=== PATIENT | male | born 1945 | race Caucasian/White ===

== ENCOUNTER → 2016-05-16 | Outpatient (CLI) | payer MEDICARE ==
[2016-05-16 16:45] LABS: ALT 40 U/L (21-72); AST 23 U/L (17-59); Alkaline Phosphatase 61 U/L (38-126); Anion Gap 11 mmol/L; Blood Urea Nitrogen 11 mg/dL (9-20); Calcium 9.3 mg/dL (8.4-10.2); Carbon Dioxide 29 mmol/L (22-30); Chloride 103 mmol/L (98-107); Cholesterol 98 mg/dL (<200); Glucose 100 mg/dL (74-99); HDL Cholesterol 32 mg/dL (40-60); Non-African American GFR(MDRD) >60 (>60 ml/min/1.73 sqM); Potassium 4.6 mmol/L (3.5-5.1); Sodium 143 mmol/L (137-145); Total Bilirubin 0.4 mg/dL (0.2-1.3); Total Protein 6.8 g/dL (6.3-8.2); Triglycerides 74 mg/dL (<150)
== END | disposition home or self-care (01) ==
LOC: LABWHC1 15:56
PROVIDERS: ATTEND Internal Medicine Interventional Cardiology
DX: E78.2 Mixed hyperlipidemia (principal)
CPT/HCPCS: 36415; 80053; 80061

== ENCOUNTER → 2017-06-05 | Outpatient (CLI) | payer MEDICARE ==
[2017-06-05 15:11] LABS: ALT 38 U/L (21-72); AST 23 U/L (17-59); Cholesterol 128 mg/dL (<200); HDL Cholesterol 37 mg/dL (40-60); LDL Cholesterol,Calculated 70 mg/dL (0-99); Triglycerides 103 mg/dL (<150)
== END | disposition home or self-care (01) ==
LOC: LABWHC1 14:41
PROVIDERS: ATTEND Internal Medicine Interventional Cardiology
DX: E78.2 Mixed hyperlipidemia (principal)
CPT/HCPCS: 36415; 80061; 84450; 84460

== ENCOUNTER → 2017-11-05 | Outpatient (CLI) | payer MEDICARE ==
[2017-11-05 13:54] LABS: ALT 28 U/L (21-72); AST 20 U/L (17-59); Albumin 4.2 g/dL (3.5-5.0); Alkaline Phosphatase 52 U/L (38-126); Anion Gap 9 mmol/L; Blood Urea Nitrogen 11 mg/dL (9-20); Calcium 9.3 mg/dL (8.4-10.2); Carbon Dioxide 29 mmol/L (22-30); Chloride 98 mmol/L (98-107); Cholesterol 113 mg/dL (<200); Glucose 105 mg/dL (74-99); HDL Cholesterol 37 mg/dL (40-60); LDL Cholesterol,Calculated 62 mg/dL (0-99); Sodium 136 mmol/L (137-145); Total Bilirubin 0.5 mg/dL (0.2-1.3); Total Protein 6.7 g/dL (6.3-8.2); Triglycerides 72 mg/dL (<150)
== END | disposition home or self-care (01) ==
LOC: LABWHC1 12:28
PROVIDERS: ATTEND Internal Medicine Interventional Cardiology
DX: E78.2 Mixed hyperlipidemia (principal)
CPT/HCPCS: 36415; 80053; 80061

== ENCOUNTER 2019-05-14 16:11 | Inpatient (IN) | payer MEDICARE ==
--- NOTE | 2019-05-14 17:50 | US ---
EXAMINATION TYPE: US kidneys/renal and bladder DATE OF EXAM: 05/14/2019 COMPARISON: NONE CLINICAL HISTORY: hematuria, retention. History of enlarged prostate, gross hematuria today, urinary retention EXAM MEASUREMENTS: Right Kidney: 13.0 x 4.7 x 5.1 cm Left Kidney: 12.8 x 5.7 x 4.5 cm Right Kidney: enlarged, no evidence of hydronephrosis Left Kidney: enlarged, no evidence of hydronephrosis Bladder: Evans Catheter visualized, debris and solid component noted within bladder IMPRESSION: Urinary bladder is empty. Kidneys are large without evidence of a mass. No hydronephrosis.
[2019-05-14] MEDS ORDERED: MORPHINE SULFATE 4 MG/ML SYRINGE IVP STA (17:52)
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
[2019-05-14 18:10] LABS: RBC,Urine >182 /hpf (0-5); WBC,Urine 37 /hpf (0-5)
[2019-05-14 18:13] LABS: Appearance,Urine Bloody (Clear); Color,Urine Brown
[2019-05-14 18:19] LABS: ALT 39 U/L (4-49); AST 46 U/L (17-59); African American GFR (CKD) >90 (>60 ml/min/1.73 sqM); Albumin 3.6 g/dL (3.5-5.0); Alkaline Phosphatase 70 U/L (38-126); Anion Gap 9 mmol/L; Blood Urea Nitrogen 11 mg/dL (9-20); Calcium 8.7 mg/dL (8.4-10.2); Carbon Dioxide 24 mmol/L (22-30); Chloride 98 mmol/L (98-107); Glucose 115 mg/dL (74-99); Non-African American GFR(CKD) >90 (>60 ml/min/1.73 sqM); Potassium 5.4 mmol/L (3.5-5.1); Sodium 131 mmol/L (137-145); Total Bilirubin 0.6 mg/dL (0.2-1.3); Total Protein 6.5 g/dL (6.3-8.2)
[2019-05-14 18:24] LABS: Basophils % (A) 0 %; Eosinophils # (A) 0.2 k/uL (0-0.7); Eosinophils % (A) 2 %; HCT 35.4 % (39.0-53.0); Lymphocytes # (A) 1.5 k/uL (1.0-4.8); Lymphocytes % (A) 12 %; MCH 31.3 pg (25.0-35.0); MCHC 33.9 g/dL (31.0-37.0); MCV 92.3 fL (80.0-100.0); Mean Platelet Volume 7.6; Monocytes # (A) 0.7 k/uL (0-1.0); Monocytes % (A) 5 %; Neutrophils # (A) 9.9 k/uL (1.3-7.7); Neutrophils % (A) 80 %; Platelet Count 379 k/uL (150-450); RBC 3.83 m/uL (4.30-5.90); WBC 12.5 k/uL (3.8-10.6)
[2019-05-14 19:15] LABS: Partial Thromboplastin Time 28.4 sec (22.0-30.0); Prothrombin Time 10.3 sec (9.0-12.0)
[2019-05-14] MEDS ORDERED: NALOXONE 0.4 MG/ML 1 ML VIAL IV PRN (19:47)
[2019-05-14] MEDS ORDERED: cefTRIAXone IN SWFI 1,000 MG/10 ML SYRINGE IVP STA (19:58)
[2019-05-14] MEDS: SODIUM CHLORIDE 0.9% 1,000 ML IV SCH (20:16)
[2019-05-14 20:48] LABS: Glucose,Whole Blood 152 mg/dL (75-99)
[2019-05-14] MEDS ORDERED: IPRATROPIUM-ALBUTEROL 3 ML NEB INHALATION PRN (20:54)
[2019-05-14] MEDS: MORPHINE SULFATE 4 MG/ML SYRINGE IV PRN (21:16)
[2019-05-14] MEDS ORDERED: HYDROcodone/APAP 10-325MG 1 EACH TAB PO PRN (22:10)
[2019-05-14] MEDS ORDERED: DIAZEPAM 5 MG TAB PO PRN (22:10)
[2019-05-15] MEDS: IPRATROPIUM-ALBUTEROL 3 ML NEB INHALATION SCH ×5 (01:03→19:20)
[2019-05-15] MEDS: GABAPENTIN 400 MG CAP PO SCH ×5 (01:26→22:34)
[2019-05-15 02:04] LABS: Basophils # (A) 0.1 k/uL (0-0.2); Basophils % (A) 1 %; Eosinophils # (A) 0.2 k/uL (0-0.7); Eosinophils % (A) 2 %; HCT 33.8 % (39.0-53.0); HGB 11.2 gm/dL (13.0-17.5); Lymphocytes # (A) 1.9 k/uL (1.0-4.8); Lymphocytes % (A) 17 %; MCH 31.1 pg (25.0-35.0); MCHC 33.3 g/dL (31.0-37.0); MCV 93.5 fL (80.0-100.0); Mean Platelet Volume 7.1; Monocytes # (A) 0.5 k/uL (0-1.0); Monocytes % (A) 4 %; Neutrophils # (A) 8.4 k/uL (1.3-7.7); Neutrophils % (A) 75 %; Platelet Count 381 k/uL (150-450); RBC 3.62 m/uL (4.30-5.90); RDW 12.8 % (11.5-15.5); WBC 11.3 k/uL (3.8-10.6)
[2019-05-15] MEDS: MORPHINE SULFATE 4 MG/ML SYRINGE IV PRN ×2 (05:45→12:48)
[2019-05-15] MEDS: SYMBICORT 160-4.5 MCG INHALER INHALATION SCH ×2 (07:03→19:21)
[2019-05-15 07:07] LABS: HCT 33.7 % (39.0-53.0); HGB 11.1 gm/dL (13.0-17.5); MCH 30.9 pg (25.0-35.0); MCHC 32.9 g/dL (31.0-37.0); MCV 94.1 fL (80.0-100.0); Mean Platelet Volume 7.1; Platelet Count 386 k/uL (150-450); RBC 3.58 m/uL (4.30-5.90); RDW 12.9 % (11.5-15.5); WBC 11.3 k/uL (3.8-10.6)
[2019-05-15 07:19] LABS: African American GFR (CKD) >90 (>60 ml/min/1.73 sqM); Anion Gap 10 mmol/L; Blood Urea Nitrogen 9 mg/dL (9-20); Calcium 8.3 mg/dL (8.4-10.2); Carbon Dioxide 25 mmol/L (22-30); Chloride 92 mmol/L (98-107); Glucose 109 mg/dL (74-99); Non-African American GFR(CKD) >90 (>60 ml/min/1.73 sqM); Potassium 5.2 mmol/L (3.5-5.1); Sodium 127 mmol/L (137-145)
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
[2019-05-15] MEDS: FINASTERIDE 5 MG TAB PO SCH (07:35)
[2019-05-15] MEDS: MONTELUKAST 10 MG TAB PO SCH (07:35)
[2019-05-15] MEDS: TAMSULOSIN 0.4 MG CAP.ER.24H PO SCH (07:35)
[2019-05-15] MEDS: SODIUM CHLORIDE 0.9% 1,000 ML IV SCH (07:36)
[2019-05-15] MEDS: LISINOPRIL 10 MG TAB PO SCH (07:36)
[2019-05-15] MEDS: ATORVASTATIN 20 MG TAB PO SCH (07:36)
[2019-05-15] MEDS: DONEPEZIL 5 MG TAB PO SCH (09:01)
--- NOTE | 2019-05-15 09:54 | CONS ---
CONSULTATION DATE OF SERVICE: 05/14/2019 REASON FOR CONSULTATION: Advice regarding COPD and multiple medical issues, requested by Dr. Mcghee. HISTORY OF PRESENT ILLNESS: This is a 74-year-old gentleman with a past medical history of multiple medical problems including COPD, CVA, TIA, history of DJD, history of prosthetic left leg, history of peripheral vascular disease, being followed by Dr. Boss in the outpatient setting, apparently was having straight caths previously. His straight cathed him and the patient was admitted with hematuria to [facility] Emergency Room. Patient also has severe urinary retention. The patient had Evans catheter placed the next period of time. Because of the hematuria, the patient admitted for evaluation and treatment. Some clots are also noted in the ER. There is no history of any fever or rigors. There is no history of headache, loss of consciousness or seizures. No history of chest pain, palpitations, hematochezia. Patient is a smoker. PAST MEDICAL: COPD, CVA, TIA, history of DJD, peripheral vascular disease history history of home O2. MEDICATIONS PRIOR TO ADMISSION INCLUDE: 1. Valium 5 mg b.i.d. p.r.n. 2. Lotensin 10 mg p.o. daily. 3. Flomax 0.4 daily. 4. Singulair 10 mg daily. 5. [place] 10 mg q.6 p.r.n. 6. Gabapentin 800 mg p.o. daily. 7. Aricept 5 mg p.o. daily. 8. Symbicort 160/4.5 two puffs b.i.d. 9. Combivent 2 puffs q.i.d. 10.Lipitor 20 mg p.o. daily. 11.Proscar 5 mg. 12.Plavix 75 mg p.o. daily. ALLERGIES: None. FAMILY HISTORY: History of lung cancer in the family. SOCIAL HISTORY: History of continued smoking. No history of alcohol intake. REVIEW OF SYSTEMS: ENT: Diminished hearing, diminished vision. CARDIOVASCULAR SYSTEM: No angina or palpitations. RESPIRATORY: As mentioned earlier. GI: As mentioned earlier. : As mentioned earlier. NERVOUS SYSTEM: No numbness or weakness. ALLERGY/IMMUNOLOGY: No asthma, hay fever. MUSCULOSKELETAL: As mentioned earlier. HEMATOLOGY: No history of anemia. ENDOCRINE: No history of diabetes or hay fever. CONSTITUTIONAL: As mentioned earlier. DERMATOLOGY: Negative. RHEUMATOLOGY: Negative. PSYCHIATRY: As mentioned earlier. PHYSICAL EXAMINATION: Patient is alert and oriented x3. Pulse is 60, blood pressure 130/70, respiration 20, temperature 98.2, pulse ox 93% on room air. HEENT: Conjunctivae normal, oral mucosa moist. NECK: No jugular venous distention. No lymph node enlargement. CARDIOVASCULAR SYSTEM: S1, S2. RESPIRATION: Breath sounds diminished at the bases, no rhonchi, no crackles. ABDOMEN: Soft, nontender. No mass palpable. LEGS: No edema, no swelling. NERVOUS SYSTEM: Higher functions as mentioned earlier. Moves all 4 limbs. No focal motor or sensory deficits. LYMPHATICS: No lymph node enlargement in the neck or axillae. SKIN: No ulcer or bleeding. JOINTS: No active deformity. LABS: WBC 12.2, hemoglobin is 12, sodium 130, potassium 5.4, and UA noted. ASSESSMENT: 1. Hematuria and urinary retention for evaluation. 2. Hyponatremia. 3. Hyperkalemia. 4. Increased WBC. 5. Anemia. 6. Chronic obstructive pulmonary disease. 7. Continued ongoing nicotine dependence. 8. History of CVA, TIA. 9. History of degenerative joint disease. 10.History of peripheral vascular disease and prosthetic left leg. 11.History of chronic hypoxic respiratory failure on home O2. 12.History of left below-knee amputation. 13.FULL CODE. RECOMMENDATION: In this 74-year-old gentleman who presented to the hospital at this time I recommend to continue with the current medications. Resume the home medications and I would recommend repeat labs in the morning because of mild hyperkalemia. Otherwise empiric antibiotics and a single dose was given in the ER. We will continue to monitor. Will follow the patient closely with you. Patient may be asked to follow with primary physician closely after discharge. Thank you Dr. Mcghee for letting us participate in this patient's care. MMODL / IJN: [id number] /
[2019-05-15] MEDS ORDERED: HYDROcodone/APAP 10-325MG 1 EACH TAB PO PRN (13:40)
[2019-05-15 14:32] LABS: HCT 31.8 % (39.0-53.0); HGB 10.5 gm/dL (13.0-17.5); MCH 31.1 pg (25.0-35.0); MCV 94.5 fL (80.0-100.0); Mean Platelet Volume 6.9; Platelet Count 351 k/uL (150-450); RBC 3.37 m/uL (4.30-5.90); RDW 12.9 % (11.5-15.5)
--- NOTE | 2019-05-15 23:59 | PN ---
PROGRESS NOTE DATE OF SERVICE: 05/15/2019 This 74-year-old gentleman who was admitted with hematuria, is being closely monitored. No chest pain. No palpitations. No fever. Dr. Mcghee is planning irrigation. PHYSICAL EXAMINATION: Alert and oriented x3. Pulse is 70. Blood pressure 130/64. Respirations 17. Temperature 98.1, pulse ox 94% on room air. HEENT: Conjunctivae normal. NECK: No JVD. CARDIOVASCULAR: S1, S2 muffled. RESPIRATORY: Breath sounds diminished in the bases. No rhonchi no crackles. ABDOMEN soft, nontender. LEGS are no edema. No swelling. CENTRAL NERVOUS SYSTEM: No focal deficits. Examination of the external genitalia some hematuria. Evans catheter in-situ. LABS: WBC 9, hemoglobin 10.5, sodium 127, potassium 5.2. ASSESSMENT: 1. Gross hematuria and urinary retention for evaluation. 2. Hyponatremia. 3. Anemia, acute blood loss anemia possibly. 4. Hyperkalemia. 5. Increased WBC. 6. Chronic obstructive pulmonary disease. 7. Continued ongoing nicotine dependence. 8. History of cerebrovascular accident, transient ischemic attack. 9. History of degenerative joint disease. 10.Peripheral vascular disease. 11.Prosthetic left leg. 12.History of chronic hypoxic respiratory failure on home O2. 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 14.FULL CODE. RECOMMENDATIONS AND DISCUSSION: Recommend to continue current medications, monitoring and symptomatic treatment. Otherwise, the patient is off Plavix at this time. We will continue to monitor. Otherwise, monitor hemoglobin closely. Further recommendations to follow. MMODL / IJN: [id number] /
[2019-05-16] MEDS: SODIUM CHLORIDE 0.9% 1,000 ML IV SCH ×2 (00:01→12:29)
[2019-05-16] MEDS: MORPHINE SULFATE 4 MG/ML SYRINGE IV PRN (01:26)
[2019-05-16] MEDS: GABAPENTIN 400 MG CAP PO SCH ×4 (06:47→21:15)
[2019-05-16] MEDS: LISINOPRIL 10 MG TAB PO SCH (06:47)
[2019-05-16] MEDS: TAMSULOSIN 0.4 MG CAP.ER.24H PO SCH (06:48)
[2019-05-16] MEDS: ATORVASTATIN 20 MG TAB PO SCH (06:48)
[2019-05-16] MEDS: FINASTERIDE 5 MG TAB PO SCH (06:48)
[2019-05-16] MEDS: MONTELUKAST 10 MG TAB PO SCH (06:48)
[2019-05-16] MEDS: DONEPEZIL 5 MG TAB PO SCH (06:48)
[2019-05-16 06:53] LABS: HCT 30.5 % (39.0-53.0); HGB 10.1 gm/dL (13.0-17.5); MCH 31.4 pg (25.0-35.0); MCHC 33.2 g/dL (31.0-37.0); MCV 94.6 fL (80.0-100.0); Mean Platelet Volume 6.9; Platelet Count 364 k/uL (150-450); RBC 3.23 m/uL (4.30-5.90); WBC 10.5 k/uL (3.8-10.6)
--- NOTE | 2019-05-16 07:26 | P.PN ---
Subjective Progress Note Date: 05/16/19 The patient is in the hospital with urine retention and gross hematuria. He has old clot dissolving and intermittently plugging his catheter requiring irrigation. The plan by Dr. Yin is to do a biopsy of the prostate nodule in the near future and then determine treatment of his urine retention. We'll continue to monitor his hematuria. His hemoglobin was stable. Objective - Vital Signs Vital signs: Vital Signs Temp 97.7 F 05/16/19 06:44 Pulse 87 05/16/19 06:44 Resp 17 05/16/19 06:44 BP 118/76 05/16/19 06:44 Pulse Ox 93 L 05/16/19 06:44 Intake & Output 05/15/19 05/16/19 05/16/19 18:59 06:59 18:59 Intake Total 375 1905 Output Total 2700 2400 Balance -0765 495 Intake: Intake, IV Titration 825 Amount Sodium Chloride 0.9% 1, 825 000 ml @ 75 mls/hr IV . [id number] [facility] Rx#:[id number] Oral 375 1080 Output: Urine 2700 2400 Uretheral (Evans) 2400 Other: Voiding Method Indwelling Catheter Indwelling Catheter - Labs CBC & Chem 7: 05/16/19 06:35 05/15/19 06:33 Labs: Abnormal Lab Results - Last 24 Hours (Table) 05/15/19 05/16/19 Range/Units 14:03 06:35 RBC 3.37 L 3.23 L (4.30-5.90) m/uL Hgb 10.5 L 10.1 L (13.0-17.5) gm/dL Hct 31.8 L 30.5 L (39.0-53.0) % Microbiology - Last 24 Hours (Table) 05/14/19 17:20 Urine Culture - Preliminary Urine,Voided
[2019-05-16] MEDS: SYMBICORT 160-4.5 MCG INHALER INHALATION SCH ×2 (07:52→20:25)
[2019-05-16] MEDS: IPRATROPIUM-ALBUTEROL 3 ML NEB INHALATION SCH ×4 (07:52→20:25)
[2019-05-16 08:23] LABS: African American GFR (CKD) >90 (>60 ml/min/1.73 sqM); Anion Gap 7 mmol/L; Blood Urea Nitrogen 9 mg/dL (9-20); Calcium 8.6 mg/dL (8.4-10.2); Carbon Dioxide 27 mmol/L (22-30); Chloride 97 mmol/L (98-107); Glucose 106 mg/dL (74-99); Non-African American GFR(CKD) >90 (>60 ml/min/1.73 sqM); Potassium 5.2 mmol/L (3.5-5.1); Sodium 131 mmol/L (137-145)
--- NOTE | 2019-05-16 20:25 | PN ---
PROGRESS NOTE DATE OF SERVICE: 05/16/2019 This 74-year-old gentleman was admitted with gross hematuria, is being closely monitored. Urology is following the patient closely. The patient has shortness of breath with bronchodilators. The COPD is rather stable at this time. No chest pain. No palpitations. No fever. EXAM: Alert and oriented x3. The pulse is 76, blood pressure 120/50, respirations 17, temperature 98.1, pulse ox 94% on room air. HEENT: Conjunctivae normal. Oral mucosa moist. NECK: No jugular venous distention. No lymph node enlargement. CARDIOVASCULAR: S1, S2. RESPIRATORY: Diminished breath sounds at the bases. Bilateral scattered rhonchi and crackles. ABDOMEN: Soft, nontender. LEGS: No edema, no swelling. NERVOUS SYSTEM: No focal deficits. LAB STUDIES: WBC 10, hemoglobin 10.1 sodium 139, potassium 5.2. ASSESSMENT: 1. Gross hematuria with urinary retention for evaluation. 2. Hyponatremia. 3. Anemia, acute blood loss anemia possibly. 4. Hyperkalemia. 5. Increased WBC. 6. Chronic obstructive pulmonary disease, on bronchodilators. 7. Continued ongoing nicotine dependence. 8. History of cerebrovascular accident, transient ischemic attack. 9. History of degenerative joint disease. 10.Peripheral vascular disease. 11.History of prosthetic left leg. 12.History of chronic hypoxic respiratory failure on home O2. 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 14.FULL CODE. RECOMMENDATIONS AND DISCUSSION: Recommend to continue current medications, continue symptomatic treatment, continue with bronchodilators. We will follow closely with Urology. Further recommendations to follow. MMODL / IJN: [id number] /
[2019-05-17 01:28] VITALS: RESP 16
[2019-05-17] MEDS: SODIUM CHLORIDE 0.9% 1,000 ML IV SCH (02:07)
[2019-05-17] MEDS: SYMBICORT 160-4.5 MCG INHALER INHALATION SCH (08:14)
[2019-05-17] MEDS: IPRATROPIUM-ALBUTEROL 3 ML NEB INHALATION SCH ×3 (08:14→16:19)
[2019-05-17 09:01] VITALS: BP 174/80; TEMP 98.4
[2019-05-17] MEDS: GABAPENTIN 400 MG CAP PO SCH (10:03)
[2019-05-17] MEDS: DONEPEZIL 5 MG TAB PO SCH (10:04)
[2019-05-17] MEDS: MONTELUKAST 10 MG TAB PO SCH (10:04)
[2019-05-17] MEDS: LISINOPRIL 10 MG TAB PO SCH (10:04)
[2019-05-17] MEDS: ATORVASTATIN 20 MG TAB PO SCH (10:04)
[2019-05-17] MEDS: TAMSULOSIN 0.4 MG CAP.ER.24H PO SCH (10:04)
[2019-05-17] MEDS: FINASTERIDE 5 MG TAB PO SCH (10:13)
--- NOTE | 2019-05-17 11:47 | P.DS ---
Providers Date of admission: 05/15/19 10:24 Attending physician: Mykel Mcghee Consults: 05/14/19 21:30 Consult Physician Routine Consulting Provider: Korey Crockett Consult Reason/Comments: General Medical Care Do you want consulting provider notified?: Already Contacted Primary care physician: Bob Boss [facility] Course: The patient has urine retention. He has a history of a large prostate. He was on intermittent catheterization because he was not tolerating the indwelling catheter. He developed gross hematuria and clot urinary retention. The gross hematuria settled down over the last couple days. Urine is clear this morning to very minimal pink. He'll be discharged home with indwelling catheter. He'll follow-up with next week or further assessment for his urine retention and prostate nodule. His condition is good. His posthospitalization instructions have been discussed. The patient understands. Patient Condition at Discharge: Good Plan - Discharge Summary Discharge Rx Participant: No New Discharge Prescriptions: No Action Montelukast [Singulair] 10 mg PO DAILY Ipratropium/Albuterol Sulfate [Combivent Respimat Inhaler] 2 puff INHALATION RT-QID Tamsulosin [Flomax] 0.4 mg PO DAILY Diazepam [Valium] 5 mg PO BID PRN PRN Reason: PAIN/ANXIETY Hydrocodone/Acetaminophen [[place] 10-325] 1 tab PO Q46H PRN PRN Reason: Pain Gabapentin 800 mg PO QID Budesonide-Formot 160-4.5 Mcg [Symbicort 160-4.5 Mcg Inhaler] 2 puff INHALATION RT-BID Clopidogrel [Plavix] 75 mg PO DAILY #30 tab Benazepril [Lotensin] 10 mg PO DAILY Donepezil [Aricept] 5 mg PO DAILY Atorvastatin [Lipitor] 20 mg PO DAILY Finasteride [Proscar] 5 mg PO DAILY Discharge Medication List Budesonide-Formot 160-4.5 Mcg [Symbicort 160-4.5 Mcg Inhaler] 2 puff INHALATION RT-BID 04/02/15 [History] Diazepam [Valium] 5 mg PO BID PRN 04/02/15 [History] Gabapentin 800 mg PO QID 04/02/15 [History] Hydrocodone/Acetaminophen [[place] 10-325] 1 tab PO Q46H PRN 04/02/15 [History] Ipratropium/Albuterol Sulfate [Combivent Respimat Inhaler] 2 puff INHALATION RT- QID 04/02/15 [History] Montelukast [Singulair] 10 mg PO DAILY 04/02/15 [History] Tamsulosin [Flomax] 0.4 mg PO DAILY 04/02/15 [History] Clopidogrel [Plavix] 75 mg PO DAILY #30 tab 04/16/15 [Rx] Atorvastatin [Lipitor] 20 mg PO DAILY 05/14/19 [History] Benazepril [Lotensin] 10 mg PO DAILY 05/14/19 [History] Donepezil [Aricept] 5 mg PO DAILY 05/14/19 [History] Finasteride [Proscar] 5 mg PO DAILY 05/14/19 [History] Follow up Appointment(s)/Referral(s): Bob Boss MD [Primary Care Provider] - 1-2 days [facility] Visiting Nurse, [NON-STAFF] - 1-2 Days Yoav Yin MD [STAFF PHYSICIAN] - 05/20/19 Activity/Diet/Wound Care/Special Instructions: Home with Evans Discharge Disposition: HOME SELF-CARE
[2019-05-17 16:34] VITALS: PULSE 73
--- NOTE | 2019-05-17 19:06 | PN ---
PROGRESS NOTE DATE OF SERVICE: 05/17/2019 This 74-year-old gentleman admitted with hematuria also had some anemia. Patient was on Plavix previously because of acute stroke apparently. Plavix is stopped. Urology is planning discharge and outpatient followup. No chest pain. No palpitations. No fever. EXAM: Alert and oriented times 3. Pulse 70. Blood pressure is 174/80, respiration 16, temperature 98.4, pulse ox 94% on 2 L. HEENT: Conjunctivae normal. Neck: No jugular venous distention. CARDIOVASCULAR: S1, S2 muffled. Respirations: Breath sounds diminished in the bases. No rhonchi. No crackles. Abdomen is soft, nontender. LEGS are no edema. No swelling. CENTRAL NERVOUS SYSTEM: No focal deficits. Hematuria persists. LABS: WBC 10.2, hemoglobin 10.1, sodium 130, potassium 5.2. ASSESSMENT: 1. Gross hematuria with urinary retention for evaluation on Evans catheter. 2. Hyponatremia. 3. Anemia, acute blood loss anemia, possibly for hematuria. 4. Hyperkalemia. 5. Increased WBC. 6. Chronic obstructive pulmonary disease, on bronchodilators. 7. Continued ongoing nicotine dependence. 8. History of cerebrovascular accident, transient ischemic attack. 9. History of degenerative joint disease. 10.History of vascular disease. 1. History of prosthetic left leg. 2. History of chronic hypoxic respiratory failure on home O2. 3. History of old left above-knee amputation. 4. FULL CODE. RECOMMENDATIONS AND DISCUSSION: In this 74-year-old gentleman who presented with multiple complex medical issues, we will monitor the patient closely, continue current medications and symptomatic treatment. Otherwise at this time, I recommend continue holding the Plavix until Urology has finalized the procedure. Otherwise, continue to monitor. Stable, but overall prognosis guarded. Recommend close followup with a primary physician in the outpatient setting. MMODL / IJN: [id number] /
== END 2019-05-17 17:42 | disposition home health service (06) | DRG 696 ==
LOC: EC 16:11 → 4SSUR 19:37 → OBSVTOIN 05-15 10:24
PROVIDERS: ADMIT Urology; ATTEND Urology
DX: R31.0 Gross hematuria (principal); J96.11 Chronic respiratory failure with hypoxia; E87.1 Hypo-osmolality and hyponatremia; D62 Acute posthemorrhagic anemia; N40.1 Benign prostatic hyperplasia with lower urinary tract symptoms; R33.8 Other retention of urine; N48.5 Ulcer of penis; J44.9 Chronic obstructive pulmonary disease, unspecified; M19.90 Unspecified osteoarthritis, unspecified site; E87.5 Hyperkalemia; H91.90 Unspecified hearing loss, unspecified ear; I73.9 Peripheral vascular disease, unspecified; F17.200 Nicotine dependence, unspecified, uncomplicated; Z71.6 Tobacco abuse counseling; Z99.81 Dependence on supplemental oxygen; Z79.51 Long term (current) use of inhaled steroids; Z79.02 Long term (current) use of antithrombotics/antiplatelets; Z79.899 Other long term (current) drug therapy; Z86.73 Personal history of transient ischemic attack (TIA), and cerebral infarction without residual deficits; Z97.14 Presence of artificial left leg (complete) (partial); Z89.512 Acquired absence of left leg below knee; Z95.828 Presence of other vascular implants and grafts; Z80.1 Family history of malignant neoplasm of trachea, bronchus and lung; Z82.5 Family history of asthma and other chronic lower respiratory diseases
CPT/HCPCS: 36415; 51702; 76770; 80048; 80053; 81001; 83605; 85025; 85027; 85610; 85730; 87077; 87086; 87186; 94640; 94760; 96374; 96375; 99285

== ENCOUNTER 2019-05-26 09:14 | Emergency (ER) | payer MEDICARE ==
[2019-05-26 09:27] VITALS: TEMP 97.7
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
[2019-05-26 11:01] VITALS: RESP 20
[2019-05-26 11:28] LABS: Appearance,Urine Clear (Clear); Bilirubin,Urine Negative (Negative); Blood,Urine Negative (Negative); Color,Urine Light Yellow; Glucose,Urine (UA) Negative (Negative); Ketones,Urine Negative (Negative); Leukocyte Esterase,Urine Negative (Negative); Nitrite,Urine Negative (Negative); PH, Urine 6.5 (5.0-8.0); Protein,Urine Negative (Negative); Specific Gravity,Urine 1.012 (1.001-1.035); Urobilinogen,Urine <2.0 mg/dL (<2.0)
[2019-05-26 11:55] VITALS: BP 155/80; PULSE 83
== END 2019-05-26 12:16 | disposition home or self-care (01) ==
LOC: EC 09:14
DX: T83.018A Breakdown (mechanical) of other urinary catheter, initial encounter (principal); N48.5 Ulcer of penis; J44.9 Chronic obstructive pulmonary disease, unspecified; M19.90 Unspecified osteoarthritis, unspecified site; F17.200 Nicotine dependence, unspecified, uncomplicated; Z79.51 Long term (current) use of inhaled steroids; Z79.899 Other long term (current) drug therapy; Z89.512 Acquired absence of left leg below knee; Z86.73 Personal history of transient ischemic attack (TIA), and cerebral infarction without residual deficits
CPT/HCPCS: 51702; 51798; 81003; 99284

== ENCOUNTER 2019-05-29 17:41 | Inpatient (IN) | payer MEDICARE ==
[2019-05-29] MEDS ORDERED: SODIUM CHLORIDE 0.9% 1,000 ML IV ONE (17:53)
[2019-05-29] MEDS ORDERED: DEXAMETHASONE SOD PHOSPHATE 10 MG/ML 1 ML VIAL IV STA (17:54)
[2019-05-29] MEDS ORDERED: ALBUTEROL NEBULIZED 2.5 MG/3 ML INHALATION STA (17:54)
[2019-05-29] MEDS ORDERED: IPRATROPIUM-ALBUTEROL 3 ML NEB INHALATION STA (17:54)
[2019-05-29 18:09] LABS: VBG PH 7.39 (7.31-7.41)
[2019-05-29 18:13] LABS: Appearance,Urine Cloudy (Clear); Bacteria,Urine Moderate /hpf; Bilirubin,Urine Negative (Negative); Blood,Urine Moderate (Negative); Color,Urine Yellow; Glucose,Urine (UA) Negative (Negative); Hyaline Casts,Urine 45 /lpf (0-2); Ketones,Urine 1+ (Negative); Leukocyte Esterase,Urine Large (Negative); Mucus,Urine Occasional /hpf; Nitrite,Urine Negative (Negative); PH, Urine 5.5 (5.0-8.0); Protein,Urine 1+ (Negative); RBC,Urine 151 /hpf (0-5); Specific Gravity,Urine 1.017 (1.001-1.035); Urobilinogen,Urine <2.0 mg/dL (<2.0); WBC,Urine 136 /hpf (0-5)
[2019-05-29 18:15] LABS: Basophils # (A) 0.2 k/uL (0-0.2); Basophils % (A) 2 %; Eosinophils % (A) 0 %; HCT 36.7 % (39.0-53.0); HGB 12.6 gm/dL (13.0-17.5); Lymphocytes # (A) 0.7 k/uL (1.0-4.8); Lymphocytes % (A) 7 %; MCH 31.1 pg (25.0-35.0); MCHC 34.3 g/dL (31.0-37.0); MCV 90.6 fL (80.0-100.0); Mean Platelet Volume 7.5; Monocytes % (A) 10 %; Neutrophils # (A) 7.2 k/uL (1.3-7.7); Neutrophils % (A) 78 %; Platelet Count 235 k/uL (150-450); RBC 4.05 m/uL (4.30-5.90); RDW 13.7 % (11.5-15.5); WBC 9.2 k/uL (3.8-10.6)
[2019-05-29 18:18] LABS: Partial Thromboplastin Time 35.5 sec (22.0-30.0); Prothrombin Time 10.2 sec (9.0-12.0)
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
[2019-05-29 18:21] LABS: ALT 27 U/L (4-49); AST 47 U/L (17-59); African American GFR (CKD) >90 (>60 ml/min/1.73 sqM); Albumin 3.7 g/dL (3.5-5.0); Alkaline Phosphatase 56 U/L (38-126); Anion Gap 14 mmol/L; Blood Urea Nitrogen 25 mg/dL (9-20); Calcium 8.3 mg/dL (8.4-10.2); Carbon Dioxide 19 mmol/L (22-30); Chloride 88 mmol/L (98-107); Glucose 123 mg/dL (74-99); Non-African American GFR(CKD) 78 (>60 ml/min/1.73 sqM); Potassium 4.7 mmol/L (3.5-5.1); Sodium 121 mmol/L (137-145); Total Bilirubin 0.8 mg/dL (0.2-1.3); Total Protein 6.7 g/dL (6.3-8.2)
[2019-05-29] MEDS ORDERED: cefTRIAXone IN SWFI 1,000 MG/10 ML SYRINGE IVP STA (18:40)
[2019-05-29] MEDS ORDERED: OSELTAMIVIR 75 MG CAP PO STA (19:00)
--- NOTE | 2019-05-29 19:10 | CT ---
EXAMINATION: CT brain wo con DATE AND TIME: 05/29/2019 6:57 PM CLINICAL INDICATION: PHH; altered mental status TECHNIQUE: Standard departmental protocol.; 1141.4 mGycm. COMPARISON: None. FINDINGS: The calvarium is intact. There is no intracranial hemorrhage. There is no intracranial mass or mass effect. No definite new intra-axial or extra-axial attenuation defect. The paranasal sinuses, middle ear cavities, and mastoid sinus air cells are clear. The orbits are unremarkable. IMPRESSION: NO ACUTE PROCESS.
--- NOTE | 2019-05-29 19:22 | XR ---
EXAMINATION: XR chest 3V DATE AND TIME: 05/29/2019 7:06 PM CLINICAL INDICATION: PHH; altered mental status TECHNIQUE: One frontal and 2 lateral views were obtained COMPARISON: None FINDINGS: The lungs are clear. The pleural spaces are negative. The cardiac silhouette is not enlarged. The remainder of the mediastinal silhouette is unremarkable. The skeletal structures and soft tissues are negative for acute findings. IMPRESSION: NO ACUTE PROCESS.
[2019-05-29] MEDS ORDERED: IPRATROPIUM-ALBUTEROL 3 ML NEB INHALATION PRN (19:24)
[2019-05-29 22:13] LABS: ABG Base Excess -3.4 mmol/L; ABG HCO3 21 mmol/L (21-25); ABG Oxygen Saturation 97.1 % (94-97); ABG PCO2 34 mmHg (35-45); ABG PO2 90 mmHg (83-108); ABG TCO2 22 mmol/L (19-24); Allen Test Performed? Yes
[2019-05-29] MEDS: methylPREDNISolone SOD SUCCI 125 MG/2 ML VIAL IV SCH (23:21)
[2019-05-30] MEDS: methylPREDNISolone SOD SUCCI 125 MG/2 ML VIAL IV SCH ×4 (05:51→23:39)
[2019-05-30 07:11] LABS: Glucose,Whole Blood 177 mg/dL (75-99)
[2019-05-30] MEDS: IPRATROPIUM-ALBUTEROL 3 ML NEB INHALATION SCH ×4 (07:27→20:37)
[2019-05-30] MEDS ORDERED: IPRATROPIUM-ALBUTEROL 3 ML NEB INHALATION SCH (08:00)
[2019-05-30] MEDS: CLOPIDOGREL 75 MG TAB PO SCH (09:03)
[2019-05-30] MEDS: OSELTAMIVIR 75 MG CAP PO SCH ×2 (09:03→20:09)
[2019-05-30] MEDS: FINASTERIDE 5 MG TAB PO SCH (09:03)
[2019-05-30] MEDS: MONTELUKAST 10 MG TAB PO SCH (09:03)
[2019-05-30] MEDS: LISINOPRIL 10 MG TAB PO SCH (09:03)
[2019-05-30] MEDS: TAMSULOSIN 0.4 MG CAP.ER.24H PO SCH (09:03)
[2019-05-30] MEDS: GABAPENTIN 400 MG CAP PO SCH ×4 (09:03→23:19)
[2019-05-30] MEDS: ATORVASTATIN 20 MG TAB PO SCH (09:03)
[2019-05-30] MEDS: DONEPEZIL 5 MG TAB PO SCH (09:03)
[2019-05-30] MEDS: SODIUM CHLORIDE 0.45% 1,000 ML IV SCH ×2 (11:27→20:09)
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
[2019-05-30 11:52] LABS: Glucose,Whole Blood 167 mg/dL (75-99)
[2019-05-30 17:26] LABS: Glucose,Whole Blood 174 mg/dL (75-99)
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
[2019-05-30 23:38] LABS: Glucose,Whole Blood 186 mg/dL (75-99)
[2019-05-31] MEDS: methylPREDNISolone SOD SUCCI 125 MG/2 ML VIAL IV SCH ×3 (06:04→17:37)
[2019-05-31 07:08] LABS: Glucose,Whole Blood 185 mg/dL (75-99)
[2019-05-31 08:22] LABS: ALT 40 U/L (4-49); AST 55 U/L (17-59); African American GFR (CKD) >90 (>60 ml/min/1.73 sqM); Albumin 2.8 g/dL (3.5-5.0); Alkaline Phosphatase 53 U/L (38-126); Anion Gap 6 mmol/L; Blood Urea Nitrogen 14 mg/dL (9-20); Calcium 7.8 mg/dL (8.4-10.2); Carbon Dioxide 23 mmol/L (22-30); Chloride 95 mmol/L (98-107); Glucose 161 mg/dL (74-99); Non-African American GFR(CKD) >90 (>60 ml/min/1.73 sqM); Potassium 4.6 mmol/L (3.5-5.1); Sodium 124 mmol/L (137-145); Total Bilirubin 0.4 mg/dL (0.2-1.3); Total Protein 5.5 g/dL (6.3-8.2)
[2019-05-31] MEDS: IPRATROPIUM-ALBUTEROL 3 ML NEB INHALATION SCH ×4 (08:51→19:53)
[2019-05-31] MEDS: MONTELUKAST 10 MG TAB PO SCH (09:48)
[2019-05-31] MEDS: GABAPENTIN 400 MG CAP PO SCH ×4 (09:48→22:16)
[2019-05-31] MEDS: CLOPIDOGREL 75 MG TAB PO SCH (09:48)
[2019-05-31] MEDS: ATORVASTATIN 20 MG TAB PO SCH (09:48)
[2019-05-31] MEDS: DONEPEZIL 5 MG TAB PO SCH (09:49)
[2019-05-31] MEDS: TAMSULOSIN 0.4 MG CAP.ER.24H PO SCH (09:49)
[2019-05-31] MEDS: FINASTERIDE 5 MG TAB PO SCH (09:49)
[2019-05-31] MEDS: LISINOPRIL 10 MG TAB PO SCH (09:49)
--- NOTE | 2019-05-31 10:30 | P.PN ---
Subjective Progress Note Date: 05/31/19 Principal diagnosis: Altered mental status secondary to influenza A, hyponatremia and UTI This is a pleasant 74 year old gentleman who follows with Dr. Alfonso as his primary care provider. He has a history of CVA/TIA, hyperlipidemia, BPH, peripheral vascular disease with a left below the knee amputation, previous stents to the SFA, chronic and ongoing tobacco dependence, chronic obstructive pulmonary disease, chronic hypoxic respiratory failure utilizing oxygen at nighttime. He is on Combivent and Singulair in the outpatient setting. He is brought into the emergency room yesterday after his son felt he was having altered mental status. He does have indwelling Evans catheter and frequent urinary tract infections. He's been afebrile. On oxygen at 2 L/m per nasal can nula. Chest x-ray showed no acute pulmonary process. Computed tomography scan of the brain showed no acute process. He was found to be influenza A positive. Urine with moderate bacteria. Culture pending. White count 9.2. Hemoglobin 12.6. Sodium 121. Bicarb 19. Creatinine 0.95. Arterial blood gases on 40% FiO2 revealed a PaO2 of 90, pCO2 34, pH 7.40. He's been initiated on DuoNeb inhalations, IV Solu-Medrol, Singulair, Tamiflu and ceftriaxone. He is seen today in consultation on the regular medical floor. He is currently resting quite comfortably in bed. Awake and alert in no acute distress. He knows the hospital he is in. He knows the year. He is unclear as to why he was brought in. The patient is seen today 05/31/2019 in follow-up on the regular medical floor. He is currently resting comfortably in bed. More awake and alert today. Denies any worsening shortness of breath, cough or congestion. He is maintaining O2 saturations in the upper 90s on 3 L/m per nasal cannula. He's been afebrile. Hemodynamically stable. Urine culture positive for gram-negative bacilli. Blood culture revealing no growth to date. Sodium 124. Potassium 4.6. Creatinine 0.61. Glucose 185. He is continued on ceftriaxone along with bronchodilators, IV Solu-Medrol and Tamiflu. Objective - Vital Signs Vital signs: Vital Signs Temp 97.7 F 05/31/19 05:19 Pulse 88 01/18/20 09:05 Resp 16 05/31/19 05:19 BP 133/70 05/31/19 05:19 Pulse Ox 97 05/31/19 05:19 Intake & Output 05/30/19 05/31/19 05/31/19 18:59 06:59 18:59 Intake Total 1980 1540 Output Total 1000 1200 Balance 980 340 Weight 105 kg Intake: Intake, IV Titration 900 950 Amount Sodium Chloride 0.45% 1, 300 900 000 ml @ 100 mls/hr IV . Q10H [facility] Rx#:[id number] Sodium Chloride 0.9% 1, 600 000 ml @ 100 mls/hr IV . Q10H ONE Rx#:[id number] cefTRIAXone 1 gm In 50 Sodium Chloride 0.9% 50 ml @ 100 mls/hr IVPB HS [facility] Rx#:[id number] Oral 1080 590 Output: Urine 1000 1200 Uretheral (Evans) 1000 1200 Other: Voiding Method Indwelling Catheter Indwelling Catheter # Bowel Movements 1 - Exam GENERAL EXAM: Alert, pleasant 74-year-old gentleman, on 2 L nasal cannula, comfortable in no apparent distress. HEAD: Normocephalic. EYES: Normal reaction of pupils, equal size. NOSE: Clear with pink turbinates. THROAT: No erythema or exudates. NECK: No masses, no JVD. CHEST: No chest wall deformity. LUNGS: Equal air entry with no crackles, wheeze, rhonchi or dullness. Diminished. CVS: S1 and S2 normal with no audible murmur, regular rhythm. ABDOMEN: No hepatosplenomegaly, normal bowel sounds, no guarding or rigidity. SPINE: No scoliosis or deformity SKIN: No rashes CENTRAL NERVOUS SYSTEM: No focal deficits, tone is normal in all 4 extremities. EXTREMITIES: Left below the knee amputee. There is no peripheral edema. No clubbing, no cyanosis. Peripheral pulses are intact. - Labs CBC & Chem 7: 05/29/19 17:52 05/31/19 06:53 Labs: Abnormal Lab Results - Last 24 Hours (Table) 05/30/19 05/30/19 05/30/19 Range/Units 11:31 17:10 23:36 Sodium (137-145) mmol/L Chloride (98-107) mmol/L Creatinine (0.66-1.25) mg/dL Glucose (74-99) mg/dL POC Glucose (mg/dL) 167 H 174 H 186 H (75-99) mg/dL Calcium (8.4-10.2) mg/dL Total Protein (6.3-8.2) g/dL Albumin (3.5-5.0) g/dL 05/31/19 05/31/19 Range/Units 06:53 07:07 Sodium 124 L (137-145) mmol/L Chloride 95 L (98-107) mmol/L Creatinine 0.61 L (0.66-1.25) mg/dL Glucose 161 H (74-99) mg/dL POC Glucose (mg/dL) 185 H (75-99) mg/dL Calcium 7.8 L (8.4-10.2) mg/dL Total Protein 5.5 L (6.3-8.2) g/dL Albumin 2.8 L (3.5-5.0) g/dL Microbiology - Last 24 Hours (Table) 05/29/19 19:13 Blood Culture - Preliminary Blood No Growth after 24 hours 05/29/19 17:52 Urine Culture - Preliminary Urine,Voided Gram Neg Bacilli Assessment and Plan Assessment: 1 Altered mental status suspect secondary to influenza A, hyponatremia improved 124 today, and urinary tract infection secondary to gram-negative bacilli 2 Mild exacerbation of chronic obstructive pulmonary disease 3 Acute on chronic hypoxemic respiratory failure secondary to above 4 Chronic and ongoing tobacco dependence 5 Peripheral vascular disease with previous left below the knee amputee and previous stenting to the SFA 5 BPH 6 Recent admission for hematuria, clotting and urinary retention with previous self-catheterization and indwelling Evans catheter 7 CVA/TIA Plan: The patient was seen and evaluated by Dr. Espinoza. Improved today compared to yesterday. Continue the current treatment plan. Encouraged again regarding the importance of complete smoking cessation We will continue to follow and make further recommendations based on his clinical status I, the cosigning physician, performed a history & physical examination of the patient. Lungs sounds are clear, diminished. Maintaining good O2 saturations in the 90s on 2 L/m per nasal cannula. I discussed the assessment and plan of care with my nurse practitioner, Hemalatha Bess. I attest to the above consultation as dictated by her.
[2019-05-31 11:19] LABS: Glucose,Whole Blood 173 mg/dL (75-99)
[2019-05-31] MEDS: INSULIN ASPART (NovoLOG) 100 UNIT/ML VIAL SQ SCH ×3 (11:26→22:34)
[2019-05-31] MEDS: SODIUM CHLORIDE 0.45% 1,000 ML IV SCH ×2 (16:17→22:23)
[2019-05-31] MEDS: OSELTAMIVIR 75 MG CAP PO SCH ×2 (16:17→22:16)
[2019-05-31 17:16] LABS: Glucose,Whole Blood 196 mg/dL (75-99)
[2019-05-31 19:39] LABS: Glucose,Whole Blood 224 mg/dL (75-99)
--- NOTE | 2019-05-31 23:20 | P.PN ---
Progress Note - Text Progress Note Date: 05/31/19 Chief Complaint: Increasing confusion Interval history: This is a [address] Jimenez. Lives with his who is predominantly the caregiver. Chronic stable medical conditions include BPH, osteoarthritis, left below knee amputation, peripheral artery disease. Patient has underlying dementia. Normally able to get from the house. Also uses oxygen at night. For last 3 days patient been pretty much sitting up in a chair. Decreased oral intake. Some congested cough. Patient's was also hospitalized has been sick for last 2 weeks. Patient himself has not the best of historians. Came back positive for influenza A positive. Patient also has a chronic Evans catheter. Admitted with-acute influenza A infection, COPD exacerbation, hyponatremia, acute hypoxic respiratory failure, acute delirium Today-feeling better. Less congested. Complaining about hospital food.. Answering questions more appropriately. Review of systems: Was done for constitutional, cardiovascular, GI, pulmonary. relevant finding as above Active Medications Albuterol/Ipratropium (Duoneb 0.5 Mg-3 Mg/3 Ml Soln) 3 ml INHALATION RT-Q4H PRN PRN Reason: Shortness Of Breath Or Wheezing Albuterol/Ipratropium (Duoneb 0.5 Mg-3 Mg/3 Ml Soln) 3 ml INHALATION RT-QID [facility] Last Admin: 05/31/19 19:53 Dose: 3 ml Documented by: Atorvastatin Calcium (Lipitor) 20 mg PO DAILY [facility] Last Admin: 05/31/19 09:48 Dose: 20 mg Documented by: Clopidogrel Bisulfate (Plavix) 75 mg PO DAILY [facility] Last Admin: 05/31/19 09:48 Dose: 75 mg Documented by: Donepezil HCl (Aricept) 5 mg PO DAILY [facility] Last Admin: 05/31/19 09:49 Dose: 5 mg Documented by: Finasteride (Proscar) 5 mg PO DAILY [facility] Last Admin: 05/31/19 09:49 Dose: 5 mg Documented by: Gabapentin (Neurontin) 800 mg PO QID [facility] Last Admin: 05/31/19 22:16 Dose: 800 mg Documented by: Sodium Chloride (Saline 0.45%) 1,000 mls @ 100 mls/hr IV .Q10H [facility] Last Admin: 05/31/19 22:23 Dose: Not Given Documented by: Cefepime HCl 2 gm/ Sodium (Chloride) 100 mls @ 200 mls/hr IVPB Q12HR [facility] Insulin Aspart (Novolog) 0 unit SQ ACHS [facility]; Protocol Last Admin: 05/31/19 22:34 Dose: 7 unit Documented by: Lisinopril (Zestril) 10 mg PO DAILY [facility] Last Admin: 05/31/19 09:49 Dose: 10 mg Documented by: Methylprednisolone Sodium Succinate (Solu-Medrol) 60 mg IV Q6HR [facility] Last Admin: 05/31/19 17:37 Dose: 60 mg Documented by: Montelukast Sodium (Singulair) 10 mg PO DAILY [facility] Last Admin: 05/31/19 09:48 Dose: 10 mg Documented by: Oseltamivir Phosphate (Tamiflu) 75 mg PO Q12HR [facility] Stop: 06/03/19 09:01 Last Admin: 05/31/19 22:16 Dose: 75 mg Documented by: Tamsulosin HCl (Flomax) 0.8 mg PO DAILY [facility] Last Admin: 05/31/19 09:49 Dose: 0.8 mg Documented by: Physical examination: VITAL SIGNS: 97.9, 65, 23, [id number], 97% on 3 L GENERAL: Sitting up in the bed, comfortable EYES: Pupils equal. Conjunctiva normal. HEENT: External appearance of nose and ears normal, oral cavity grossly normal. NECK: JVD unable to assess; masses not palpable. HEART: First and second heart sounds are normal; edema in the right leg. LUNGS: Respiratory rate increased, decreased breath sounds. ABDOMEN: Soft, nontender, liver spleen not palpable, no masses palpable. PSYCH: Awake, answering questions better EXTREMITIES: Left below-knee a palpitation, sacral decubital ulcer INVESTIGATIONS, reviewed in the clinical context: Sodium 124 progression 4.6 bun 14 creatinine 0.61 Previous testing White count 9.2 hemoglobin 12.6 platelets 235 Sodium 121 progression 4.7 125 creatinine 0.95 Influenza type A detected EKG tracing personally reviewed by me-regular blood block, sinus rhythm Chest x-ray film personally reviewed by me-possible patchy infiltrate Assessment: -Acute influenza type A pneumonitis -Acute delirium from above causing confusion at home -Acute COPD exacerbation in a current smoker -Acute hyponatremia likely from decreased solid intake likely hypoosmolar -Chronic nicotine dependence cigarette smoker -BPH -Bladder outflow structured requiring chronic Evans catheter -Primary osteoarthritis -Left below-knee amputation -Peripheral arterial disease -Chronic hypoxic respiratory failure requiring oxygen at home from underlying COPD -Mild cognitive impairment possibly from late onset Alzheimer's dementia -Sacral decubitus ulcer, on admission -Right bundle-branch block Plan: Clinically looking better. Oral intake improving. He does not like hospital food. Cut back dose of Solu-Medrol. Continue with DuoNeb cefepime Tamiflu. Decrease IV fluids.
[2019-06-01] MEDS: methylPREDNISolone SOD SUCCI 40 MG/ML 1 ML VIAL IV SCH ×2 (00:11→11:56)
[2019-06-01] MEDS: CEFEPIME 2 GM in SODIUM CHLORIDE 0.9% 100 ML IVPB SCH ×3 (00:12→21:25)
[2019-06-01] MEDS: IPRATROPIUM-ALBUTEROL 3 ML NEB INHALATION SCH ×4 (05:43→21:01)
[2019-06-01 07:15] LABS: Glucose,Whole Blood 186 mg/dL (75-99)
[2019-06-01] MEDS: GABAPENTIN 400 MG CAP PO SCH ×4 (09:03→21:25)
[2019-06-01] MEDS: ATORVASTATIN 20 MG TAB PO SCH (09:04)
[2019-06-01] MEDS: INSULIN ASPART (NovoLOG) 100 UNIT/ML VIAL SQ SCH ×4 (09:04→21:25)
[2019-06-01] MEDS: LISINOPRIL 10 MG TAB PO SCH (09:04)
[2019-06-01] MEDS: CLOPIDOGREL 75 MG TAB PO SCH (09:04)
[2019-06-01] MEDS: TAMSULOSIN 0.4 MG CAP.ER.24H PO SCH (09:04)
[2019-06-01] MEDS: MONTELUKAST 10 MG TAB PO SCH (09:04)
[2019-06-01] MEDS: OSELTAMIVIR 75 MG CAP PO SCH ×2 (09:04→21:25)
[2019-06-01] MEDS: FINASTERIDE 5 MG TAB PO SCH (09:05)
[2019-06-01] MEDS: DONEPEZIL 5 MG TAB PO SCH (09:05)
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
[2019-06-01 11:20] LABS: Glucose,Whole Blood 169 mg/dL (75-99)
--- NOTE | 2019-06-01 15:16 | P.PN ---
Subjective Progress Note Date: 06/01/19 Principal diagnosis: Altered mental status secondary to influenza A, hyponatremia and UTI This is a pleasant 74 year old gentleman who follows with Dr. Alfonso as his primary care provider. He has a history of CVA/TIA, hyperlipidemia, BPH, peripheral vascular disease with a left below the knee amputation, previous stents to the SFA, chronic and ongoing tobacco dependence, chronic obstructive pulmonary disease, chronic hypoxic respiratory failure utilizing oxygen at nighttime. He is on Combivent and Singulair in the outpatient setting. He is brought into the emergency room yesterday after his son felt he was having altered mental status. He does have indwelling Evans catheter and frequent urinary tract infections. He's been afebrile. On oxygen at 2 L/m per nasal can nula. Chest x-ray showed no acute pulmonary process. Computed tomography scan of the brain showed no acute process. He was found to be influenza A positive. Urine with moderate bacteria. Culture pending. White count 9.2. Hemoglobin 12.6. Sodium 121. Bicarb 19. Creatinine 0.95. Arterial blood gases on 40% FiO2 revealed a PaO2 of 90, pCO2 34, pH 7.40. He's been initiated on DuoNeb inhalations, IV Solu-Medrol, Singulair, Tamiflu and ceftriaxone. He is seen today in consultation on the regular medical floor. He is currently resting quite comfortably in bed. Awake and alert in no acute distress. He knows the hospital he is in. He knows the year. He is unclear as to why he was brought in. The patient is seen today 05/31/2019 in follow-up on the regular medical floor. He is currently resting comfortably in bed. More awake and alert today. Denies any worsening shortness of breath, cough or congestion. He is maintaining O2 saturations in the upper 90s on 3 L/m per nasal cannula. He's been afebrile. Hemodynamically stable. Urine culture positive for gram-negative bacilli. Blood culture revealing no growth to date. Sodium 124. Potassium 4.6. Creatinine 0.61. Glucose 185. He is continued on ceftriaxone along with bronchodilators, IV Solu-Medrol and Tamiflu. The patient seen today 06/01/2019 in follow-up on the regular medical floor. He is more awake and alert today. Denies any worsening shortness of breath, cough or congestion. He is maintaining good O2 saturations in the mid 90s on 3 L/m per nasal cannula. His been afebrile. Hemodynamically stable. Hoping to get up in a chair today. Urine culture was positive for pseudomonas. Urology is on the case. Blood cultures reveal no growth. He is continued on bronchodilators, Singulair, IV Solu-Medrol, Tamiflu, cefepime. Objective - Vital Signs Vital signs: Vital Signs Temp 97.9 F 06/01/19 11:19 Pulse 78 06/01/19 14:55 Resp 18 06/01/19 14:55 BP 147/65 06/01/19 11:19 Pulse Ox 94 L 06/01/19 11:19 Intake & Output 05/31/19 06/01/19 06/01/19 18:59 06:59 18:59 Intake Total 240 1590 240 Output Total 1850 3200 1800 Balance -1610 -1610 -1560 Weight 105 kg Intake: Intake, IV Titration 1000 Amount Cefepime 2 gm In Sodium 100 Chloride 0.9% 100 ml @ 200 mls/hr IVPB Q12HR [facility] Rx#:[id number] Sodium Chloride 0.45% 1, 900 000 ml @ 100 mls/hr IV . Q10H [facility] Rx#:[id number] Oral 240 590 240 Output: Urine 1850 3200 1800 Uretheral (Evans) 1850 3200 1800 Other: Voiding Method Indwelling Catheter Indwelling Catheter Indwelling Catheter # Voids 1 1 - Exam GENERAL EXAM: Alert, pleasant 74-year-old gentleman, on 3 L nasal cannula, comfortable in no apparent distress. HEAD: Normocephalic. EYES: Normal reaction of pupils, equal size. NOSE: Clear with pink turbinates. THROAT: No erythema or exudates. NECK: No masses, no JVD. CHEST: No chest wall deformity. LUNGS: Equal air entry with faint end expiratory wheeze. Diminished. CVS: S1 and S2 normal with no audible murmur, regular rhythm. ABDOMEN: No hepatosplenomegaly, normal bowel sounds, no guarding or rigidity. SPINE: No scoliosis or deformity SKIN: No rashes CENTRAL NERVOUS SYSTEM: No focal deficits, tone is normal in all 4 extremities. EXTREMITIES: Left below the knee amputee. There is no peripheral edema. No clubbing, no cyanosis. Peripheral pulses are intact. - Labs CBC & Chem 7: 05/29/19 17:52 05/31/19 06:53 Labs: Abnormal Lab Results - Last 24 Hours (Table) 05/31/19 05/31/19 06/01/19 Range/Units 17:15 19:37 07:14 POC Glucose (mg/dL) 196 H 224 H 186 H (75-99) mg/dL 06/01/19 Range/Units 11:19 POC Glucose (mg/dL) 169 H (75-99) mg/dL Microbiology - Last 24 Hours (Table) 05/29/19 19:13 Blood Culture - Preliminary Blood No Growth after 48 hours 05/29/19 17:52 Urine Culture - Final Urine,Voided Pseudomonas aeruginosa Assessment and Plan Assessment: 1 Altered mental status suspect secondary to influenza A, hyponatremia improved 124 today, and urinary tract infection secondary to pseudomonas aeruginosa 2 Mild exacerbation of chronic obstructive pulmonary disease 3 Acute on chronic hypoxemic respiratory failure secondary to above 4 Chronic and ongoing tobacco dependence 5 Peripheral vascular disease with previous left below the knee amputee and previous stenting to the SFA 5 BPH 6 Recent admission for hematuria, clotting and urinary retention with previous self-catheterization and indwelling Evans catheter 7 CVA/TIA Plan: The patient was seen and evaluated by Dr. Espinoza. Chest x-ray in a.m. Continue the current treatment plan. Encouraged again regarding the importance of complete smoking cessation We will continue to follow and make further recommendations based on his clinica l status I, the cosigning physician, performed a history & physical examination of the patient. Lungs sounds with faint end expiratory wheeze, diminished. Maintaining good O2 saturations in the 90s on 3 L/m per nasal cannula. I discussed the assessment and plan of care with my nurse practitioner, Hemalatha Bess. I attest to the above consultation as dictated by her.
[2019-06-01 17:28] LABS: Glucose,Whole Blood 127 mg/dL (75-99)
[2019-06-01] MEDS ORDERED: MENTHOL-ZINC OXIDE OINT 113 GM TUBE TOPICAL PRN (19:16)
[2019-06-01 20:24] LABS: Glucose,Whole Blood 151 mg/dL (75-99)
--- NOTE | 2019-06-01 21:28 | P.PN ---
Progress Note - Text Progress Note Date: 06/01/19 Chief Complaint: Increasing confusion Interval history: This is a [address] Jimenez. Lives with his who is predominantly the caregiver. Chronic stable medical conditions include BPH, osteoarthritis, left below knee amputation, peripheral artery disease. Patient has underlying dementia. Normally able to get from the house. Also uses oxygen at night. For last 3 days patient been pretty much sitting up in a chair. Decreased oral intake. Some congested cough. Patient's was also hospitalized has been sick for last 2 weeks. Patient himself has not the best of historians. Came back positive for influenza A positive. Patient also has a chronic Evans catheter. Admitted with-acute influenza A infection, COPD exacerbation, hyponatremia, acute hypoxic respiratory failure, acute delirium Today-breathing much improved. Eating much better. No fever no chills. Minimal cough. Review of systems: Was done for constitutional, cardiovascular, GI, pulmonary. relevant finding as above Active Medications Albuterol/Ipratropium (Duoneb 0.5 Mg-3 Mg/3 Ml Soln) 3 ml INHALATION RT-Q4H PRN PRN Reason: Shortness Of Breath Or Wheezing Last Admin: 06/01/19 09:18 Dose: 3 ml Documented by: Albuterol/Ipratropium (Duoneb 0.5 Mg-3 Mg/3 Ml Soln) 3 ml INHALATION RT-QID [facility] Last Admin: 06/01/19 21:01 Dose: 3 ml Documented by: Atorvastatin Calcium (Lipitor) 20 mg PO DAILY [facility] Last Admin: 06/01/19 09:04 Dose: 20 mg Documented by: Calamine/Phenol (Calmoseptine Oint) 1 applic TOPICAL BID PRN PRN Reason: Skin Irritation Clopidogrel Bisulfate (Plavix) 75 mg PO DAILY [facility] Last Admin: 06/01/19 09:04 Dose: 75 mg Documented by: Donepezil HCl (Aricept) 5 mg PO DAILY [facility] Last Admin: 06/01/19 09:05 Dose: 5 mg Documented by: Finasteride (Proscar) 5 mg PO DAILY [facility] Last Admin: 06/01/19 09:05 Dose: 5 mg Documented by: Gabapentin (Neurontin) 800 mg PO QID [facility] Last Admin: 06/01/19 21:25 Dose: 800 mg Documented by: Cefepime HCl 2 gm/ Sodium (Chloride) 100 mls @ 200 mls/hr IVPB Q12HR [facility] Last Admin: 06/01/19 21:25 Dose: 200 mls/hr Documented by: Insulin Aspart (Novolog) 0 unit SQ ACHS [facility]; Protocol Last Admin: 06/01/19 21:25 Dose: 2 unit Documented by: Lisinopril (Zestril) 10 mg PO DAILY [facility] Last Admin: 06/01/19 09:04 Dose: 10 mg Documented by: Methylprednisolone Sodium Succinate (Solu-Medrol) 40 mg IV Q12H [facility] Last Admin: 06/01/19 11:56 Dose: 40 mg Documented by: Montelukast Sodium (Singulair) 10 mg PO DAILY [facility] Last Admin: 06/01/19 09:04 Dose: 10 mg Documented by: Oseltamivir Phosphate (Tamiflu) 75 mg PO Q12HR [facility] Stop: 06/03/19 09:01 Last Admin: 06/01/19 21:25 Dose: 75 mg Documented by: Tamsulosin HCl (Flomax) 0.8 mg PO DAILY [facility] Last Admin: 06/01/19 09:04 Dose: 0.8 mg Documented by: Physical examination: VITAL SIGNS: 97.9, 78, 18, 147/65, 94% on 3 L GENERAL: Sitting up in chair, comfortable EYES: Pupils equal. Conjunctiva normal. HEENT: External appearance of nose and ears normal, oral cavity grossly normal. NECK: JVD unable to assess; masses not palpable. HEART: First and second heart sounds are normal; edema in the right leg. LUNGS: Respiratory rate normal,, decreased breath sounds. ABDOMEN: Soft, nontender, liver spleen not palpable, no masses palpable. PSYCH: Awake, answering questions better EXTREMITIES: Left below-knee a palpitation, sacral decubital ulcer INVESTIGATIONS, reviewed in the clinical context: Sodium 124 progression 4.6 bun 14 creatinine 0.61 Previous testing White count 9.2 hemoglobin 12.6 platelets 235 Sodium 121 progression 4.7 125 creatinine 0.95 Influenza type A detected EKG tracing personally reviewed by me-regular blood block, sinus rhythm Chest x-ray film personally reviewed by me-possible patchy infiltrate Assessment: -Acute influenza type A pneumonitis, improved -Acute delirium from above causing confusion at home, improved -Acute COPD exacerbation in a current smoker, improving -Acute hyponatremia likely from decreased solid intake likely hypoosmolar -Chronic nicotine dependence cigarette smoker -BPH -Bladder outflow structured requiring chronic Evans catheter -Primary osteoarthritis -Left below-knee amputation -Peripheral arterial disease -Chronic hypoxic respiratory failure requiring oxygen at home from underlying COPD -Mild cognitive impairment possibly from late onset Alzheimer's dementia -Sacral decubitus ulcer, on admission -Right bundle-branch block Plan: Oral looking much better. Clinically improved. Okay to go to the ECF.
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
--- NOTE | 2019-06-02 07:17 | XR ---
EXAMINATION TYPE: XR chest 1V portable DATE OF EXAM: 06/02/2019 HISTORY: Shortness of breath. COMPARISON: 05/29/2019 TECHNIQUE: Single view of the chest is submitted. FINDINGS: Demonstrated are scattered senescent parenchymal change. There is no evidence for focal infiltrate. The heart is stable. Hilar and mediastinal structures are within normal limits. Degenerative changes are seen of the dorsal spine. IMPRESSION: 1. Chronic changes without evidence for acute pulmonary disease.
[2019-06-02 07:20] LABS: Glucose,Whole Blood 147 mg/dL (75-99)
[2019-06-02] MEDS: GABAPENTIN 400 MG CAP PO SCH ×4 (07:50→15:50)
[2019-06-02] MEDS: CEFEPIME 2 GM in SODIUM CHLORIDE 0.9% 100 ML IVPB SCH (07:50)
[2019-06-02] MEDS: CLOPIDOGREL 75 MG TAB PO SCH (07:51)
[2019-06-02] MEDS: DONEPEZIL 5 MG TAB PO SCH (07:51)
[2019-06-02] MEDS: OSELTAMIVIR 75 MG CAP PO SCH (07:51)
[2019-06-02] MEDS: MONTELUKAST 10 MG TAB PO SCH (07:51)
[2019-06-02] MEDS: TAMSULOSIN 0.4 MG CAP.ER.24H PO SCH (07:51)
[2019-06-02] MEDS: LISINOPRIL 10 MG TAB PO SCH (07:51)
[2019-06-02] MEDS: FINASTERIDE 5 MG TAB PO SCH (07:51)
[2019-06-02] MEDS: ATORVASTATIN 20 MG TAB PO SCH (07:51)
[2019-06-02] MEDS: INSULIN ASPART (NovoLOG) 100 UNIT/ML VIAL SQ SCH ×2 (07:52→12:54)
[2019-06-02] MEDS: IPRATROPIUM-ALBUTEROL 3 ML NEB INHALATION SCH ×3 (08:06→17:46)
[2019-06-02] MEDS ORDERED: predniSONE 20 MG TAB PO SCH (09:00)
[2019-06-02 11:07] LABS: Glucose,Whole Blood 141 mg/dL (75-99)
[2019-06-02 12:05] VITALS: BP 131/71; PULSE 66; RESP 17; TEMP 97
--- NOTE | 2019-06-02 12:18 | P.DS ---
Providers Date of admission: 05/29/19 19:26 Expected date of discharge: 06/02/19 Attending physician: Angelo Rausch Consults: 05/29/19 21:44 Consult Physician Stat Consulting Provider: Adam Espinoza Consult Reason/Comments: flu positive, history copd, shortness of breathe Do you want consulting provider notified?: Yes, Notify in am 05/31/19 13:10 Consult Physician Routine Consulting Provider: Willis Kramer Consult Reason/Comments: chronic lawrence (penis sore) Do you want consulting provider notified?: Yes 05/31/19 21:45 Consult Physician Routine Consulting Provider: Nabila Fraser Consult Reason/Comments: psuedomonas in urine culture Do you want consulting provider notified?: Yes Primary care physician: Bob Boss Hospital Course: Chief Complaint: Increasing confusion Hospital course: This is a [address] Jimenez. Lives with his who is predominantly the caregiver. Chronic stable medical conditions include BPH, osteoarthritis, left below knee amputation, peripheral artery disease. Patient has underlying dementia. Normally able to get from the house. Also uses oxygen at night. For last 3 days patient been pretty much sitting up in a chair. Decreased oral intake. Some congested cough. Patient's was also hospitalized has been sick for last 2 weeks. Patient himself has not the best of historians. Came back positive for influenza A positive. Patient also has a chronic Lawrence catheter. Being followed by from neurology. Admitted with-acute influenza A infection, COPD exacerbation, hyponatremia, acute hypoxic respiratory failure, acute delirium. Patient responded well to DuoNeb, steroids, IV cefepime. Told to restrict fluids because of low sodium. Today-breathing much improved. Eating well. Again reminded about decreased fluid intake. Occasional cough. Care discussed with patient's is also hospitalized. Discussion and discharge planning more than 35 minutes . Consultation: Dr. Dubon-from urology Dr. Bobbi fraser from ID Dr. Espinoza from pulmonary Physical examination: VITAL SIGNS: 97, 66, 17, 131/71, 94% on 2 L GENERAL: Sitting up in chair, comfortable, eating EYES: Pupils equal. Conjunctiva normal. HEENT: External appearance of nose and ears normal, oral cavity grossly normal. NECK: JVD unable to assess; masses not palpable. HEART: First and second heart sounds are normal; edema in the right leg. LUNGS: Respiratory rate normal,, decreased breath sounds. ABDOMEN: Soft, nontender, liver spleen not palpable, no masses palpable. Chronic Lawrence PSYCH: Awake, answering questions better EXTREMITIES: Left below-knee a palpitation, sacral decubital ulcer INVESTIGATIONS, reviewed in the clinical context: Sodium 124 progression 4.6 bun 14 creatinine 0.61 Previous testing White count 9.2 hemoglobin 12.6 platelets 235 Sodium 121 progression 4.7 125 creatinine 0.95 Influenza type A detected EKG tracing personally reviewed by me-regular blood block, sinus rhythm Chest x-ray film personally reviewed by me-possible patchy infiltrate Assessment: -Acute influenza type A pneumonitis, improved -Acute delirium from above causing confusion at home, improved -Acute COPD exacerbation in a current smoker, improving -Acute hyponatremia likely from decreased solid intake likely hypoosmolar -Chronic nicotine dependence cigarette smoker -BPH -Bladder outflow structured requiring chronic Lawrence catheter, being followed by /urologist -Primary osteoarthritis -Left below-knee amputation, with prosthesis -Peripheral arterial disease -Chronic hypoxic respiratory failure requiring oxygen at home from underlying COPD -Mild cognitive impairment possibly from late onset Alzheimer's dementia -Sacral decubitus ulcer, on admission, on topical care calmoseptin -Right bundle-branch block Disposition: ECF Labs: BMP in 1-2 days. Plan - Discharge Summary Discharge Rx Participant: Yes New Discharge Prescriptions: New Amoxic-Pot Clav 875-125Mg [Augmentin 875-125] 1 tab PO Q12HR #14 tablet Menthol-Zinc Oxide Oint [Calmoseptine Oint] 1 applic TOPICAL BID PRN applic PRN Reason: Skin Irritation Ipratropium-Albuterol Nebulize [Duoneb 0.5 mg-3 mg/3 ml Soln] 3 ml INHALATION RT-QID ampul.neb predniSONE 0 mg PO DIRECTED #10 tab Oseltamivir [Tamiflu] 75 mg PO Q12HR #4 cap Continue Montelukast [Singulair] 10 mg PO DAILY Tamsulosin [Flomax] 0.8 mg PO DAILY Clopidogrel [Plavix] 75 mg PO DAILY #30 tab Benazepril [Lotensin] 10 mg PO DAILY Donepezil [Aricept] 5 mg PO DAILY Atorvastatin [Lipitor] 20 mg PO DAILY Finasteride [Proscar] 5 mg PO DAILY Hydrocodone/Acetaminophen [[place] 10-325] 1 tab PO Q4-6H PRN #12 tab PRN Reason: Pain Changed Gabapentin 800 mg PO TID #9 tab Discontinued Ipratropium/Albuterol Sulfate [Combivent Respimat Inhaler] 1 puff INHALATION RT-QID Diazepam [Valium] 5 mg PO BID PRN PRN Reason: PAIN/ANXIETY Discharge Medication List Montelukast [Singulair] 10 mg PO DAILY 04/02/15 [History] Tamsulosin [Flomax] 0.8 mg PO DAILY 04/02/15 [History] Clopidogrel [Plavix] 75 mg PO DAILY #30 tab 04/16/15 [Rx] Atorvastatin [Lipitor] 20 mg PO DAILY 05/14/19 [History] Benazepril [Lotensin] 10 mg PO DAILY 05/14/19 [History] Donepezil [Aricept] 5 mg PO DAILY 05/14/19 [History] Finasteride [Proscar] 5 mg PO DAILY 05/14/19 [History] Amoxic-Pot Clav 875-125Mg [Augmentin 875-125] 1 tab PO Q12HR #14 tablet 06/02/19 [Rx] Gabapentin 800 mg PO TID #9 tab 06/02/19 [Rx] Hydrocodone/Acetaminophen [[place] 10-325] 1 tab PO Q4-6H PRN #12 tab 06/02/19 [Rx] Ipratropium-Albuterol Nebulize [Duoneb 0.5 mg-3 mg/3 ml Soln] 3 ml INHALATION RT-QID ampul.neb 06/02/19 [Rx] Menthol-Zinc Oxide Oint [Calmoseptine Oint] 1 applic TOPICAL BID PRN applic 06/02/19 [Rx] Oseltamivir [Tamiflu] 75 mg PO Q12HR #4 cap 06/02/19 [Rx] predniSONE 0 mg PO DIRECTED #10 tab 06/02/19 [Rx] Follow up Appointment(s)/Referral(s): Bob Boss MD [Primary Care Provider] - 1-2 days Activity/Diet/Wound Care/Special Instructions: Fluid restrict-1800 mL a day BMP-2 days
--- NOTE | 2019-06-02 12:37 | CDI ---
Documentation Clarification Form Date: 06/02/2019 12:14:00 PM From: Luisana Ramirez Admit Date: 05/29/2019 07:26:00 PM Patient Name: Rohit Meek Visit Number: [id number] Discharge Date: ATTENTION: The Clinical Documentation Specialists (CDI) and [facility] Coding Staff appreciate your assistance in clarifying documentation. Please respond to the clarification below the line at the bottom and electronically sign. The CDI & [facility] Coding staff will review the response and follow-up if needed. Please note: Queries are made part of the Legal Health Record. If you have any questions, please contact the author of this message via ITS. Dr. Angelo Rausch Left and Right Buttock Deep Tissue Pressure Injury is documented in the Nursing wound assessment History/Risk Factors: 74-year-old male presents to the ED via EMS for worsening confusion. Medical History Left below the knee amputation; Chronic indwelling lawrence catheter; COPD; Clinical Indicators: Location: Left and Right Buttock Wound description: wound margins distinct; juan carlos wound moist; juan carlos wound color ecchymosis erythema, juan carlos wound tenderness yes Treatment: Barrier Cream, Turn Q 2 In your professional opinion, can you please clarify the diagnosis, location, laterality and whether present on admission (POA): * Left and Right Deep Tissue pressure injury POA * Other condition, please specify * Unable to determine Please indicate etiology of pressure ulcer (if known). (Last Revision: February 2017) Sacral decubitus ulcer stage III,. MTDD
--- NOTE | 2019-06-02 12:57 | CDI ---
Documentation Clarification Form Date: 06/02/2019 12:38:17 PM From: Luisana Ramirez RN CCDS Admit Date: 05/29/2019 07:26:00 PM Patient Name: Rohit Meek Visit Number: [id number] Discharge Date: ATTENTION: The Clinical Documentation Specialists (CDI) and [facility] Coding Staff appreciate your assistance in clarifying documentation. Please respond to the clarification below the line at the bottom and electronically sign. The CDI & [facility] Coding staff will review the response and follow-up if needed. Please note: Queries are made part of the Legal Health Record. If you have any questions, please contact the author of this message via ITS. Dr. Angelo Rausch Acute delirium from above causing confusion at home, improved History/Risk Factors: 74-year-old male presents to the ED for evaluation of altered mental status, worsening confusion. Medical History COPD on home oxygen at night; Left AKA; PAD Clinical Indicators: Labs: Influenza A RNA detected. Wbc 9.2 CT Brain No acute process. Treatment: Tamiflu; CT Brain; Duoneb tx; Singular In your professional opinion, please clarify the etiology of the Altered Mental Status, if known. * Metabolic Encephalopathy due to Acute influenza * Other condition (please specify) * Unable to determine (Last Revision: August 2017) Acute delirium and acute metabolic encephalopathy due to acute influenza a pneumonitis MTDD
--- NOTE | 2019-06-02 13:51 | P.PN ---
Subjective Progress Note Date: 06/02/19 Principal diagnosis: Altered mental status secondary to influenza A, hyponatremia and UTI This is a pleasant 74 year old gentleman who follows with Dr. Alfonso as his primary care provider. He has a history of CVA/TIA, hyperlipidemia, BPH, peripheral vascular disease with a left below the knee amputation, previous stents to the SFA, chronic and ongoing tobacco dependence, chronic obstructive pulmonary disease, chronic hypoxic respiratory failure utilizing oxygen at nighttime. He is on Combivent and Singulair in the outpatient setting. He is brought into the emergency room yesterday after his son felt he was having altered mental status. He does have indwelling Evans catheter and frequent urinary tract infections. He's been afebrile. On oxygen at 2 L/m per nasal can nula. Chest x-ray showed no acute pulmonary process. Computed tomography scan of the brain showed no acute process. He was found to be influenza A positive. Urine with moderate bacteria. Culture pending. White count 9.2. Hemoglobin 12.6. Sodium 121. Bicarb 19. Creatinine 0.95. Arterial blood gases on 40% FiO2 revealed a PaO2 of 90, pCO2 34, pH 7.40. He's been initiated on DuoNeb inhalations, IV Solu-Medrol, Singulair, Tamiflu and ceftriaxone. He is seen today in consultation on the regular medical floor. He is currently resting quite comfortably in bed. Awake and alert in no acute distress. He knows the hospital he is in. He knows the year. He is unclear as to why he was brought in. The patient is seen today 05/31/2019 in follow-up on the regular medical floor. He is currently resting comfortably in bed. More awake and alert today. Denies any worsening shortness of breath, cough or congestion. He is maintaining O2 saturations in the upper 90s on 3 L/m per nasal cannula. He's been afebrile. Hemodynamically stable. Urine culture positive for gram-negative bacilli. Blood culture revealing no growth to date. Sodium 124. Potassium 4.6. Creatinine 0.61. Glucose 185. He is continued on ceftriaxone along with bronchodilators, IV Solu-Medrol and Tamiflu. The patient seen today 06/01/2019 in follow-up on the regular medical floor. He is more awake and alert today. Denies any worsening shortness of breath, cough or congestion. He is maintaining good O2 saturations in the mid 90s on 3 L/m per nasal cannula. His been afebrile. Hemodynamically stable. Hoping to get up in a chair today. Urine culture was positive for pseudomonas. Urology is on the case. Blood cultures reveal no growth. He is continued on bronchodilators, Singulair, IV Solu-Medrol, Tamiflu, cefepime. The patient is seen today 06/02/2019 in follow-up on the regular medical floor. He is currently sitting up the bedside. Awake and alert in no acute distress. He denies any worsening shortness of breath, cough or congestion. Maintaining good O2 saturation in the 90s on 2 L/m per nasal cannula. He's been afebrile. Hemodynamically stable. Plan is for transfer to [facility] for continued rehabilitation. Objective - Vital Signs Vital signs: Vital Signs Temp 97 F L 06/02/19 12:04 Pulse 66 06/02/19 12:04 Resp 17 06/02/19 12:04 BP 131/71 06/02/19 12:04 Pulse Ox 94 L 06/02/19 12:04 Intake & Output 06/01/19 06/02/19 06/02/19 18:59 06:59 18:59 Intake Total 240 1870 Output Total 2700 2600 Balance -2460 -730 Weight 104.5 kg Intake: Intake, IV Titration 100 Amount Cefepime 2 gm In Sodium 100 Chloride 0.9% 100 ml @ 200 mls/hr IVPB Q12HR [facility] Rx#:[id number] Oral 240 1770 Output: Urine 2700 2600 Uretheral (Evans) 2700 2600 Other: Voiding Method Indwelling Catheter Indwelling Catheter Indwelling Catheter # Voids 1 - Exam GENERAL EXAM: Alert, pleasant 74-year-old gentleman, on 2 L nasal cannula, comfortable in no apparent distress. HEAD: Normocephalic. EYES: Normal reaction of pupils, equal size. NOSE: Clear with pink turbinates. THROAT: No erythema or exudates. NECK: No masses, no JVD. CHEST: No chest wall deformity. LUNGS: Equal air entry with faint end expiratory wheeze. Diminished. CVS: S1 and S2 normal with no audible murmur, regular rhythm. ABDOMEN: No hepatosplenomegaly, normal bowel sounds, no guarding or rigidity. SPINE: No scoliosis or deformity SKIN: No rashes CENTRAL NERVOUS SYSTEM: No focal deficits, tone is normal in all 4 extremities. EXTREMITIES: Left below the knee amputee. There is no peripheral edema. No clubbing, no cyanosis. Peripheral pulses are intact. - Labs CBC & Chem 7: 05/29/19 17:52 05/31/19 06:53 Labs: Abnormal Lab Results - Last 24 Hours (Table) 06/01/19 06/01/19 06/02/19 Range/Units 17:27 20:20 07:17 POC Glucose (mg/dL) 127 H 151 H 147 H (75-99) mg/dL 06/02/19 Range/Units 11:03 POC Glucose (mg/dL) 141 H (75-99) mg/dL Microbiology - Last 24 Hours (Table) 05/29/19 19:13 Blood Culture - Preliminary Blood No Growth after 72 hours Assessment and Plan Assessment: 1 Altered mental status suspect secondary to influenza A, hyponatremia improved, and urinary tract infection secondary to pseudomonas aeruginosa 2 Mild exacerbation of chronic obstructive pulmonary disease 3 Acute on chronic hypoxemic respiratory failure secondary to above 4 Chronic and ongoing tobacco dependence 5 Peripheral vascular disease with previous left below the knee amputee and previous stenting to the SFA 5 BPH 6 Recent admission for hematuria, clotting and urinary retention with previous self-catheterization and indwelling Evans catheter 7 CVA/TIA Plan: The patient was seen and evaluated by Dr. Chong. The plan is for transfer to [facility] for ongoing rehabilitation. Complete course of antibiotics. Complete prednisone taper. Continue bronchodilators. Encouraged again regarding the importance of complete smoking cessation I, the cosigning physician, performed a history & physical examination of the patient. Lungs sounds with faint end expiratory wheeze, diminished. Maintaining good O2 saturations in the 90s on 2 L/m per nasal cannula. I discussed the assessment and plan of care with my nurse practitioner, Hemalatha Bess. I attest to the above consultation as dictated by her.
--- NOTE | 2019-06-02 18:23 | PN ---
PROGRESS NOTE DATE OF SERVICE: 06/02/2019 REASON FOR FOLLOWUP: Pseudomonas urinary tract infection. INTERVAL HISTORY: The patient is currently afebrile. The patient is breathing comfortably. The patient denies having any chest pain or shortness of breath or cough. No abdominal pain or diarrhea. PHYSICAL EXAMINATION: Blood pressure 131/71 with a pulse of 66, temperature 97. He is 94% on 2 L nasal cannula. General description is an elderly male lying in bed in no distress. RESPIRATORY SYSTEM: Unlabored breathing. Clear to auscultation. HEART: S1, S2. Regular rate and rhythm. ABDOMEN: Soft. No tenderness. LABS: No new labs have been obtained today. DIAGNOSTIC IMPRESSION AND PLAN: 1. Patient with Pseudomonas aeruginosa positive urine culture in this patient who did have a chronic Evans catheter. It is not very clear if this culture was obtained from the new or the old Evans. The patient has been on day 2 of his cefepime; to continue for another day or two, as we do not have any oral option, and monitor clinical course closely. 2. Patient with acute influenza. To continue with the Tamiflu as ordered. MMODL / IJN: [id number] /
--- NOTE | 2019-06-05 09:01 | CDI ---
Documentation Clarification Form Date: 06/05/2019 08:41:02 AM From: Luisana Ramirez Admit Date: 05/29/2019 07:26:00 PM Patient Name: Rohit Meek Visit Number: [id number] Discharge Date: 06/02/2019 05:15:00 PM ATTENTION: The Clinical Documentation Specialists (CDI) and [facility] Coding Staff appreciate your assistance in clarifying documentation. Please respond to the clarification below the line at the bottom and electronically sign. The CDI & [facility] Coding staff will review the response and follow-up if needed. Please note: Queries are made part of the Legal Health Record. If you have any questions, please contact the author of this message via ITS. Dr. Angelo Rausch Per previous query response Sacral decubitus ulcer stage III Please render your opinion if POA History/Risk Factors:74-year-old male presents to the ED via EMS for worsening confusion. Clinical Indicators: Left and Right Buttock Deep Tissue Pressure Injury is documented in the wound assessment 05/30/2019 Treatment: Barrier Cream, Turn Q 2 Definition of Present on Admission (POA): A diagnosis present at the time the order for admission to inpatient status was written. For each diagnosis, documentation must be clear to determine if the condition was present at the time of the patients inpatient admission or developed during the hospital stay. Please clarify if Sacral Decubitus Ulcer was POA: ____Y = Yes, the condition was present at the time of the order for inpatient admission. ____N = No, the condition was not present at the time of the order for inpatient admission. ____W = Clinically undetermined if the condition was present at the time of the order for inpatient admission. (Last Revision: Apr 2018) Sacral decubitus ulcer stage III, POA MTDD
--- NOTE | 2019-06-09 07:59 | CDI ---
Documentation Clarification Form Date: 06/09/19 From: Anne Schaffer Phone: If you have a question about this query, please contact Angella Whittaker, Pin Ball Machine Mechanic at [phone] between 8am and 5pm. Admit Date: 05/29/19 Discharge Date:06/02/19 Patient Name: Rohit Meek Visit Number: [id number] ATTENTION: The Clinical Documentation Specialists (CDI) and [facility] Coding Staff appreciate your assistance in clarifying documentation. Please respond to the clarification below the line at the bottom and electronically sign. The CDI & [facility] Coding staff will review the response and follow-up if needed. Please note: Queries are made part of the Legal Health Record. If you have any questions, please contact the author of this message via ITS. Dear Dr. Rausch Urinary tract infection was documented in Dr. Espinoza's and Dr. Cruz's consult notes and progress notes and Dr. Chong's progress note. History/Risk Factors: Indwelling Evans catheter, BPH with urinary retention Clinical Indicators: Altered mental status, pseudomonas in the urine Vital Signs: T. 98.7, P. 96, R. 22, BP 185/92 WBC: 9.2 Urinalysis: Blood moderate, leukocyte esterase large, RBC 151, WBC 136, bacteria moderate Urine Culture: Pseudomonas aeruginosa Treatment Antibiotics: IV Cefepime Please document the condition that these clinical indicators signify, whether Present on Admission, and cause if known: UTI -If due to catheter, device or implant, please document -Identify location of infection (if known) Bladder, Kidney, Urethra Pyelonephritis Contaminated specimen Other, please specify Unable to determine Acute UTI, from cystitis, due to chronic Evans catheter, from pseudomonas, POA MTDD
== END 2019-06-02 17:15 | DRG 193 ==
LOC: EC 17:41 → 5NMEDONC 19:26
PROVIDERS: ADMIT Hospitalist; ATTEND Hospitalist
DX: J10.01 Influenza due to other identified influenza virus with the same other identified influenza virus pneumonia (principal); L89.153 Pressure ulcer of sacral region, stage 3; J96.21 Acute and chronic respiratory failure with hypoxia; G93.41 Metabolic encephalopathy; E87.1 Hypo-osmolality and hyponatremia; F05 Delirium due to known physiological condition; J44.0 Chronic obstructive pulmonary disease with (acute) lower respiratory infection; J44.1 Chronic obstructive pulmonary disease with (acute) exacerbation; N13.8 Other obstructive and reflux uropathy; T83.511A Infection and inflammatory reaction due to indwelling urethral catheter, initial encounter; N30.00 Acute cystitis without hematuria; G30.1 Alzheimer's disease with late onset; F02.80 Dementia in other diseases classified elsewhere, unspecified severity, without behavioral disturbance, psychotic disturbance, mood disturbance, and anxiety; E78.5 Hyperlipidemia, unspecified; F17.210 Nicotine dependence, cigarettes, uncomplicated; I45.10 Unspecified right bundle-branch block; I73.9 Peripheral vascular disease, unspecified; M19.91 Primary osteoarthritis, unspecified site; N40.2 Nodular prostate without lower urinary tract symptoms; B96.5 Pseudomonas (aeruginosa) (mallei) (pseudomallei) as the cause of diseases classified elsewhere; N40.1 Benign prostatic hyperplasia with lower urinary tract symptoms; Z79.02 Long term (current) use of antithrombotics/antiplatelets; Z79.51 Long term (current) use of inhaled steroids; Z79.899 Other long term (current) drug therapy; Z86.73 Personal history of transient ischemic attack (TIA), and cerebral infarction without residual deficits; Z87.440 Personal history of urinary (tract) infections; Z89.512 Acquired absence of left leg below knee; Z97.14 Presence of artificial left leg (complete) (partial); Z90.49 Acquired absence of other specified parts of digestive tract; Z80.1 Family history of malignant neoplasm of trachea, bronchus and lung; Z82.5 Family history of asthma and other chronic lower respiratory diseases; Y84.6 Urinary catheterization as the cause of abnormal reaction of the patient, or of later complication, without mention of misadventure at the time of the procedure
CPT/HCPCS: 36415; 36600; 70450; 71045; 71046; 80053; 81001; 82803; 82805; 83605; 85025; 85610; 85730; 87040; 87077; 87086; 87186; 87502; 93005; 94640; 94760; 96361; 96374; 96375; 99285

== ENCOUNTER 2020-01-12 17:12 | Emergency (ER) | payer MEDICARE ==
[2020-01-12 17:28] VITALS: BP 114/48; PULSE 78; RESP 18; TEMP 97
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
--- NOTE | 2020-01-19 00:17 | CDI ---
Dear Nehemiah Garcia PAC PLEASE DO ADDENDUM FOR IF MILLER CATHETER PLACED MENTION IN MDM NOTES Thank you, Kevin Arnold, Variety Saw Operator. If you have any questions, please contact Neon Installer at [phone]. MTDD
== END 2020-01-12 19:20 | disposition home or self-care (01) ==
LOC: EC 17:12
DX: T83.018A Breakdown (mechanical) of other urinary catheter, initial encounter (principal); N40.1 Benign prostatic hyperplasia with lower urinary tract symptoms; J44.9 Chronic obstructive pulmonary disease, unspecified; M19.90 Unspecified osteoarthritis, unspecified site; Z99.81 Dependence on supplemental oxygen; Z79.899 Other long term (current) drug therapy; Z89.512 Acquired absence of left leg below knee
CPT/HCPCS: 99284

== ENCOUNTER 2021-07-17 13:20 | Inpatient (IN) | payer MEDICARE ==
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
[2021-07-17 14:01] LABS: Glucose,Whole Blood 141 mg/dL (75-99)
[2021-07-17] MEDS: SODIUM CHLORIDE 0.9% 1,000 ML IV STA ×2 (14:05→17:33)
[2021-07-17 14:17] LABS: Albumin 4.2 g/dL (3.5-5.0); Calcium 8.7 mg/dL (8.4-10.2); Potassium 4.5 mmol/L (3.5-5.1); Total Bilirubin 1.1 mg/dL (0.2-1.3); Total Protein 8.2 g/dL (6.3-8.2)
[2021-07-17 14:26] LABS: Basophils % (A) 0 %; Eosinophils # (A) 0.1 k/uL (0-0.7); Eosinophils % (A) 0 %; HCT 41.4 % (39.0-53.0); HGB 13.8 gm/dL (13.0-17.5); Lymphocytes # (A) 0.8 k/uL (1.0-4.8); Lymphocytes % (A) 7 %; MCH 30.7 pg (25.0-35.0); MCHC 33.3 g/dL (31.0-37.0); MCV 92.2 fL (80.0-100.0); Mean Platelet Volume 8.1; Monocytes % (A) 8 %; Neutrophils % (A) 83 %; Platelet Count 172 k/uL (150-450); RBC 4.49 m/uL (4.30-5.90); RDW 13.9 % (11.5-15.5); WBC 12.1 k/uL (3.8-10.6)
--- NOTE | 2021-07-17 14:26 | XR ---
EXAMINATION TYPE: XR chest 2V DATE OF EXAM: 07/17/2021 COMPARISON: NONE HISTORY: Altered mental status TECHNIQUE: 2 views FINDINGS: There is no heart failure nor confluent pneumonic infiltrate. There is some mild linear den sity right lung base. There are no hilar masses. Heart size is normal. Bony thorax is intact. There i s slight increased interstitial density left lung base. IMPRESSION: Subsegmental atelectasis and mild increased interstitial density compared to last exam. N o heart failure. Normal heart.
[2021-07-17 14:44] LABS: Partial Thromboplastin Time 24.7 sec (22.0-30.0); Prothrombin Time 11.1 sec (9.0-12.0)
[2021-07-17 14:55] LABS: Appearance,Urine Cloudy (Clear); Bacteria,Urine Many /hpf; Bilirubin,Urine Negative (Negative); Blood,Urine Large (Negative); Color,Urine Yellow; Glucose,Urine (UA) Negative (Negative); Ketones,Urine 1+ (Negative); Leukocyte Esterase,Urine Large (Negative); Mucus,Urine Occasional /hpf; Nitrite,Urine Positive (Negative); PH, Urine 5.5 (5.0-8.0); Protein,Urine 2+ (Negative); RBC,Urine 45 /hpf (0-5); Specific Gravity,Urine 1.019 (1.001-1.035); Squamous Epithelial Cell,Urine 1 /hpf (0-4); Urobilinogen,Urine <2.0 mg/dL (<2.0); WBC,Urine >182 /hpf (0-5)
[2021-07-17] MEDS ORDERED: cefTRIAXone IN SWFI 1,000 MG/10 ML SYRINGE IVP STA (14:58)
[2021-07-17 15:07] LABS: Amphetamine Screen,Urine Not Detected (NotDetected); Barbiturate Screen,Urine Not Detected (NotDetected); Benzodiazepines Screen,Urine Not Detected (NotDetected); Cocaine Screen,Urine Not Detected (NotDetected); Methadone Screen, Urine Not Detected (NotDetected); Opiate Screen,Urine Detected (NotDetected); Oxycodone Screen, Urine Not Detected (NotDetected); Phencyclidine Screen,Urine Not Detected (NotDetected); Tricyclic Antidepressant,Urine Not Detected (NotDetected); Urn Cannabinoid Scrn Not Detected (NotDetected)
[2021-07-17 15:18] LABS: Influenza A Not Detected (Not Detectd); Influenza B Not Detected (Not Detectd)
[2021-07-17] MEDS ORDERED: ACETAMINOPHEN TAB 325 MG TAB PO PRN (16:31)
[2021-07-17] MEDS ORDERED: NALOXONE 0.4 MG/ML 1 ML VIAL IV PRN (16:31)
[2021-07-17] MEDS ORDERED: HYDROcodone/APAP 10-325MG 1 EACH TAB PO PRN (16:32)
[2021-07-17] MEDS ORDERED: IPRATROPIUM-ALBUTEROL 3 ML NEB INHALATION PRN (18:17)
[2021-07-17] MEDS: IPRATROPIUM-ALBUTEROL 3 ML NEB INHALATION SCH (19:24)
[2021-07-17] MEDS: FAMOTIDINE 20 MG TAB PO SCH (20:28)
[2021-07-17] MEDS: ASPIRIN 81 MG PO SCH (20:28)
[2021-07-17] MEDS: SODIUM CHLORIDE 0.9% 1,000 ML IV SCH (20:28)
[2021-07-17] MEDS: GABAPENTIN 400 MG CAP PO SCH (20:28)
[2021-07-17] MEDS: METOPROLOL TARTRATE 50 MG TAB PO SCH (20:28)
[2021-07-17] MEDS ORDERED: GABAPENTIN 400 MG CAP PO SCH (22:00)
[2021-07-18] MEDS: SODIUM CHLORIDE 0.9% 1,000 ML IV SCH ×2 (05:22→19:56)
[2021-07-18] MEDS: IPRATROPIUM-ALBUTEROL 3 ML NEB INHALATION SCH ×4 (07:52→20:41)
[2021-07-18] MEDS ORDERED: MONTELUKAST 10 MG TAB PO SCH (09:00)
[2021-07-18] MEDS ORDERED: ATORVASTATIN 20 MG TAB PO SCH (09:00)
[2021-07-18] MEDS: CLOPIDOGREL 75 MG TAB PO SCH (09:01)
[2021-07-18] MEDS: DONEPEZIL 5 MG TAB PO SCH (09:01)
[2021-07-18] MEDS: FINASTERIDE 5 MG TAB PO SCH (09:01)
--- NOTE | 2021-07-18 09:01 | XR ---
EXAMINATION TYPE: XR chest 1V portable DATE OF EXAM: 07/18/2021 COMPARISON: Chest x-ray 07/17/2021 HISTORY: Worsening cough, wheezing TECHNIQUE: Single frontal view of the chest is obtained. FINDINGS: There is no focal air space opacity, pleural effusion, or pneumothorax seen. The cardiac silhouette size is within normal limits. Interstitial changes are present within the lungs. Aorta is dense. There is a spinal curvature. There is overlying artifact. There is dominant lung volume again noted. The osseous structures are intact. IMPRESSION: Interstitial lung disease, correlate for possible underlying COPD, emphysema
[2021-07-18] MEDS: METOPROLOL TARTRATE 50 MG TAB PO SCH ×2 (09:02→21:30)
[2021-07-18] MEDS: TAMSULOSIN 0.4 MG CAP.ER.24H PO SCH (09:02)
[2021-07-18] MEDS: lisinopriL 10 MG TAB PO SCH (09:02)
[2021-07-18] MEDS: GABAPENTIN 400 MG CAP PO SCH ×4 (09:02→21:29)
[2021-07-18] MEDS ORDERED: FUROSEMIDE 10 MG/ML 4 ML VIAL IV STA (10:34)
[2021-07-18] MEDS: NICOTINE 14MG/24HR PATCH TRANSDERM SCH ×2 (11:54→12:07)
[2021-07-18] MEDS: SODIUM CHLORIDE 0.45% 1,000 ML IV SCH (11:58)
[2021-07-18] MEDS: guaiFENesin 600 MG TABLET.ER PO SCH ×3 (12:06→21:30)
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
[2021-07-18] MEDS: BUDESONIDE 1 MG/2 ML NEBU INHALATION SCH (20:42)
[2021-07-18] MEDS: ASPIRIN 81 MG PO SCH (21:30)
[2021-07-18] MEDS: FAMOTIDINE 20 MG TAB PO SCH (21:30)
[2021-07-19] MEDS: TAMSULOSIN 0.4 MG CAP.ER.24H PO SCH (09:03)
[2021-07-19] MEDS: FINASTERIDE 5 MG TAB PO SCH (09:03)
[2021-07-19] MEDS: METOPROLOL TARTRATE 50 MG TAB PO SCH ×2 (09:03→21:47)
[2021-07-19] MEDS: guaiFENesin 600 MG TABLET.ER PO SCH ×4 (09:03→21:47)
[2021-07-19] MEDS: DONEPEZIL 5 MG TAB PO SCH (09:03)
[2021-07-19] MEDS: lisinopriL 10 MG TAB PO SCH (09:03)
[2021-07-19] MEDS: CLOPIDOGREL 75 MG TAB PO SCH (09:03)
[2021-07-19] MEDS: GABAPENTIN 400 MG CAP PO SCH ×4 (09:03→21:47)
[2021-07-19] MEDS: IPRATROPIUM-ALBUTEROL 3 ML NEB INHALATION SCH ×4 (09:21→20:40)
[2021-07-19] MEDS: BUDESONIDE 1 MG/2 ML NEBU INHALATION SCH ×2 (09:21→20:40)
[2021-07-19] MEDS: SODIUM CHLORIDE 0.45% 1,000 ML IV SCH (11:35)
[2021-07-19 12:19] LABS: African American GFR (CKD) >90 (>60 ml/min/1.73 sqM); Anion Gap 8 mmol/L; Blood Urea Nitrogen 21 mg/dL (9-20); Carbon Dioxide 31 mmol/L (22-30); Chloride 93 mmol/L (98-107); Glucose 119 mg/dL (74-99); Non-African American GFR(CKD) 82 (>60 ml/min/1.73 sqM); Potassium 3.9 mmol/L (3.5-5.1); Sodium 132 mmol/L (137-145)
[2021-07-19 12:23] LABS: Basophils # (A) 0.1 k/uL (0-0.2); Basophils % (A) 1 %; Eosinophils # (A) 0.2 k/uL (0-0.7); Eosinophils % (A) 2 %; HCT 37.4 % (39.0-53.0); HGB 12.4 gm/dL (13.0-17.5); Lymphocytes # (A) 1.1 k/uL (1.0-4.8); Lymphocytes % (A) 15 %; MCH 31.6 pg (25.0-35.0); MCHC 33.2 g/dL (31.0-37.0); MCV 95.2 fL (80.0-100.0); Mean Platelet Volume 8.3; Monocytes # (A) 0.8 k/uL (0-1.0); Monocytes % (A) 10 %; Neutrophils # (A) 5.3 k/uL (1.3-7.7); Neutrophils % (A) 69 %; Platelet Count 181 k/uL (150-450); RBC 3.92 m/uL (4.30-5.90); RDW 13.5 % (11.5-15.5); WBC 7.7 k/uL (3.8-10.6)
--- NOTE | 2021-07-19 15:17 | P.PN ---
Progress Note - Text Progress Note Date: 07/18/21 Chief Complaint: Altered mental status Hospital course: This is a [address] Boss. Lives with his / caregiver. Chronic stable medical conditions include BPH, chronic Evans catheter, osteoarthritis, left below knee amputation, peripheral artery disease. dementia. Normally able to around the house. uses oxygen at night. Patient was seen in the ER. Per the EMS report: The son reported that patient was increasingly confused. [place] warm. Not short of the patent 8 and now drank the morning. Normally the patient able to put his prosthetic leg on and has breakfast. Patient is found to be lethargic and confused by the EMS staff. In the ER patient had a temperature of 101.1. Patient was not sure why he is here. Sees his appetite is okay. Congested cough. Unable to expectorate. A bit tired and rundown. Unable to give me much of a history and the ER. They would answer simple questions. June 20: Congested cough. Tired. Eating a bit. Reclining in a chair. Current medications reviewed Past medical history: To include: COPD, CVA, BPH, arthritis, prosthesis left leg, PAD, home oxygen 2 L at night, chronic Evans catheter, Social history: Patient being smoking a pack a day for over 60 years. Lives with his . Retired. Physical examination: VITAL SIGNS: 98, 74, 16, 145/72, 92% on 3 L GENERAL: Reclining, tired]. EYES: Pupils equal. Conjunctiva normal. HEENT: External appearance of nose and ears normal, oral cavity grossly normal. NECK: JVD not raised; masses not palpable. HEART: First and second heart sounds are normal; no edema. LUNGS: Respiratory rate increased; coarse breath sounds or wheezing. ABDOMEN: Soft, nontender, liver spleen not palpable, no masses palpable. PSYCH: Able to answer only some questions. Decreased sensoriuml. MUSCULOSKELETAL:No Clubbing/cyanosis;muscles-grossly intact. Left below-knee amputation INVESTIGATIONS, reviewed in the clinical context: White count 12.1 hemoglobin 13.8 platelets 172 sodium 132 potassium 4.5 BUN 27 creatinine 1.0 UA positive for leukoesterase, WBC Urine drug screen positive for opiates Influenza type A, type B, RSV, COVID 19: Not detected EKG tracing personally reviewed by me-increased heart rate. Right bundle-branch block. Nonspecific ST segment changes. Chest x-ray film personally reviewed by me-possible infiltrate Assessment and plan: -Pneumonia suspected gram-negative organism: Slow to respond Mucinex. IV ceftriaxone 1 g every 12. -Sepsis secondary to pneumonia IV fluids -Acute UTI with cystitis secondary to chronic Evans catheter IV ceftriaxone -Acute delirium /metabolic encephalopathy from sepsis: Slow to respond -Acute COPD exacerbation in a current smoker: Slow to respond, Sage Ozuna -Acute hyponatremia likely from decreased solid intake Encourage oral fluid intake -Chronic nicotine dependence cigarette smoker Nicotine patch -BPH Flomax 0.8 mg by mouth daily at bedtime -Bladder outflow structured requiring chronic Evans catheter, being followed by /urologist -Primary osteoarthritis -Left below-knee amputation, with prosthesis At baseline patient able to ambulate -Peripheral arterial disease -Chronic hypoxic respiratory failure requiring oxygen at home from underlying COPD 2 L of oxygen at home -Mild cognitive impairment possibly from late onset Alzheimer's dementia -Right bundle-branch block IV fluids. IV ceftriaxone. Continue the medications. Oxygen
--- NOTE | 2021-07-19 15:20 | P.PN ---
Progress Note - Text Progress Note Date: 07/19/21 Chief Complaint: Altered mental status Hospital course: This is a [address] Boss. Lives with his / caregiver. Chronic stable medical conditions include BPH, chronic Evans catheter, osteoarthritis, left below knee amputation, peripheral artery disease. dementia. Normally able to around the house. uses oxygen at night. Patient was seen in the ER. Per the EMS report: The son reported that patient was increasingly confused. [place] warm. Not short of the patent 8 and now drank the morning. Normally the patient able to put his prosthetic leg on and has breakfast. Patient is found to be lethargic and confused by the EMS staff. In the ER patient had a temperature of 101.1. Patient was not sure why he is here. Sees his appetite is okay. Congested cough. Unable to expectorate. A bit tired and rundown. Unable to give me much of a history and the ER. They would answer simple questions. June 20: Congested cough. Tired. Eating a bit. Reclining in a chair. June 21: Looking better today. Less delirious. Able to communicate better. Decreased cough. Oral intake better. On IV ceftriaxone. Up in a chair Active Medications Acetaminophen (Acetaminophen Tab 325 Mg Tab) 650 mg PO Q6HR PRN PRN Reason: Mild Pain or Fever > 100.5 Hydrocodone Bitart/Acetaminophen (Hydrocodone/Apap 10-325mg 1 Each Tab) 1 each PO QID PRN PRN Reason: Pain Albuterol/Ipratropium (Ipratropium-Albuterol 3 Ml Neb) 3 ml INHALATION RT-QID [facility] Last Admin: 07/19/21 12:08 Dose: 3 ml Documented by: Albuterol/Ipratropium (Ipratropium-Albuterol 3 Ml Neb) 3 ml INHALATION RT-Q6H PRN PRN Reason: Shortness Of Breath Last Admin: 07/18/21 02:06 Dose: 3 ml Documented by: Aspirin (Aspirin 81 Mg) 81 mg PO HS [facility] Last Admin: 07/18/21 21:30 Dose: 81 mg Documented by: Budesonide (Budesonide 1 Mg/2 Ml Nebu) 1 mg INHALATION RT-BID [facility] Last Admin: 07/19/21 09:21 Dose: 1 mg Documented by: Clopidogrel Bisulfate (Clopidogrel 75 Mg Tab) 75 mg PO DAILY [facility] Last Admin: 07/19/21 09:03 Dose: 75 mg Documented by: Donepezil HCl (Donepezil 5 Mg Tab) 5 mg PO DAILY [facility] Last Admin: 07/19/21 09:03 Dose: 5 mg Documented by: Famotidine (Famotidine 20 Mg Tab) 10 mg PO HS [facility] Last Admin: 07/18/21 21:30 Dose: 10 mg Documented by: Finasteride (Finasteride 5 Mg Tab) 5 mg PO DAILY [facility] Last Admin: 07/19/21 09:03 Dose: 5 mg Documented by: Gabapentin (Gabapentin 400 Mg Cap) 800 mg PO QID [facility] Last Admin: 07/19/21 14:19 Dose: 800 mg Documented by: Guaifenesin (Guaifenesin 600 Mg Tablet.Er) 600 mg PO QID [facility] Last Admin: 07/19/21 14:19 Dose: 600 mg Documented by: Sodium Chloride (Saline 0.45%) 1,000 mls @ 20 mls/hr IV .Q24H [facility] Last Admin: 07/19/21 11:35 Dose: Not Given Documented by: Ceftriaxone Sodium 1 gm/ (Sodium Chloride) 50 mls @ 100 mls/hr IVPB Q12HR [facility]; Protocol Last Admin: 07/19/21 09:04 Dose: 100 mls/hr Documented by: Lisinopril (Lisinopril 10 Mg Tab) 10 mg PO DAILY [facility] Last Admin: 07/19/21 09:03 Dose: 10 mg Documented by: Metoprolol Tartrate (Metoprolol Tartrate 50 Mg Tab) 50 mg PO BID [facility] Last Admin: 07/19/21 09:03 Dose: 50 mg Documented by: Naloxone HCl (Naloxone 0.4 Mg/Ml 1 Ml Vial) 0.2 mg IV Q2M PRN PRN Reason: Opioid Reversal Nicotine (Nicotine 14mg/24hr Patch) 1 patch TRANSDERM DAILY [facility] Last Admin: 07/18/21 12:07 Dose: 1 patch Documented by: Tamsulosin HCl (Tamsulosin 0.4 Mg Cap.Er.24h) 0.8 mg PO DAILY [facility] Last Admin: 07/19/21 09:03 Dose: 0.8 mg Documented by: Past medical history: To include: COPD, CVA, BPH, arthritis, prosthesis left leg, PAD, home oxygen 2 L at night, chronic Evans catheter, Social history: Patient being smoking a pack a day for over 60 years. Lives with his . Retired. Physical examination: VITAL SIGNS: 98.4, 60, 16, 157 which is 72, 94% on 3 L GENERAL: Up in a chair, more awake today]. EYES: Pupils equal. Conjunctiva normal. HEENT: External appearance of nose and ears normal, oral cavity grossly normal. NECK: JVD not raised; masses not palpable. HEART: First and second heart sounds are normal; no edema. LUNGS: Respiratory rate increased; coarse breath sounds, decreased breath sounds ABDOMEN: Soft, nontender, liver spleen not palpable, no masses palpable. PSYCH: Answering questions better more awake. MUSCULOSKELETAL:No Clubbing/cyanosis;muscles-grossly intact. Left below-knee amputation INVESTIGATIONS, reviewed in the clinical context: Urine culture: Gram-negative bacilli July 19: White count 7.7 hemoglobin 12.4 platelets 181 sodium 132 potassium 3.9 creatinine 0.89 White count 12.1 hemoglobin 13.8 platelets 172 sodium 132 potassium 4.5 BUN 27 creatinine 1.0 UA positive for leukoesterase, WBC Urine drug screen positive for opiates Influenza type A, type B, RSV, COVID 19: Not detected EKG tracing personally reviewed by me-increased heart rate. Right bundle-branch block. Nonspecific ST segment changes. Chest x-ray film personally reviewed by me-possible infiltrate Assessment and plan: -Pneumonia suspected gram-negative organism: Slow to respond Mucinex. IV ceftriaxone 1 g every 12. -Sepsis secondary to pneumonia: Better IV fluids -Acute UTI with cystitis secondary to chronic Evans catheter, from gram-negative bacilli IV ceftriaxone -Acute delirium /metabolic encephalopathy from sepsis: Better -Acute COPD exacerbation in a current smoker: Slow to respond, Sage Ozuna -Acute hyponatremia likely from decreased solid intake Encourage oral fluid intake -Chronic nicotine dependence cigarette smoker Nicotine patch -BPH Flomax 0.8 mg by mouth daily at bedtime -Bladder outflow structured requiring chronic Evans catheter, being followed by /urologist -Primary osteoarthritis -Left below-knee amputation, with prosthesis At baseline patient able to ambulate -Peripheral arterial disease -Chronic hypoxic respiratory failure requiring oxygen at home from underlying COPD 2 L of oxygen at home -Mild cognitive impairment possibly from late onset Alzheimer's dementia -Right bundle-branch block IV ceftriaxone. Nevertheless bronchodilators, Angella steroids. Continue the medications. Oxygen. Discussed with patient
[2021-07-19] MEDS: HYDROcodone/APAP 10-325MG 1 EACH TAB PO PRN ×2 (17:02→23:13)
[2021-07-19] MEDS: FAMOTIDINE 20 MG TAB PO SCH (21:46)
[2021-07-19] MEDS: ASPIRIN 81 MG PO SCH (21:47)
[2021-07-20] MEDS: HYDROcodone/APAP 10-325MG 1 EACH TAB PO PRN ×2 (06:03→17:42)
[2021-07-20] MEDS: GABAPENTIN 400 MG CAP PO SCH ×4 (07:48→20:03)
[2021-07-20] MEDS: TAMSULOSIN 0.4 MG CAP.ER.24H PO SCH (07:48)
[2021-07-20] MEDS: METOPROLOL TARTRATE 50 MG TAB PO SCH ×2 (07:48→20:03)
[2021-07-20] MEDS: lisinopriL 10 MG TAB PO SCH (07:48)
[2021-07-20] MEDS: CLOPIDOGREL 75 MG TAB PO SCH (07:48)
[2021-07-20] MEDS: guaiFENesin 600 MG TABLET.ER PO SCH ×4 (07:48→20:03)
[2021-07-20] MEDS: NICOTINE 14MG/24HR PATCH TRANSDERM SCH (07:48)
[2021-07-20] MEDS: FINASTERIDE 5 MG TAB PO SCH (07:49)
[2021-07-20] MEDS: DONEPEZIL 5 MG TAB PO SCH (07:49)
[2021-07-20] MEDS: IPRATROPIUM-ALBUTEROL 3 ML NEB INHALATION SCH ×4 (08:30→21:28)
[2021-07-20] MEDS: BUDESONIDE 1 MG/2 ML NEBU INHALATION SCH ×2 (08:30→21:28)
[2021-07-20] MEDS: SODIUM CHLORIDE 0.45% 1,000 ML IV SCH (12:08)
--- NOTE | 2021-07-20 15:42 | P.PN ---
Progress Note - Text Progress Note Date: 07/20/21 Chief Complaint: Altered mental status Hospital course: This is a [address] Boss. Lives with his / caregiver. Chronic stable medical conditions include BPH, chronic Evans catheter, osteoarthritis, left below knee amputation, peripheral artery disease. dementia. Normally able to around the house. uses oxygen at night. Patient was seen in the ER. Per the EMS report: The son reported that patient was increasingly confused. [place] warm. Not short of the patent 8 and now drank the morning. Normally the patient able to put his prosthetic leg on and has breakfast. Patient is found to be lethargic and confused by the EMS staff. In the ER patient had a temperature of 101.1. Patient was not sure why he is here. Sees his appetite is okay. Congested cough. Unable to expectorate. A bit tired and rundown. Unable to give me much of a history and the ER. They would answer simple questions. June 20: Congested cough. Tired. Eating a bit. Reclining in a chair. June 21: Looking better today. Less delirious. Able to communicate better. Decreased cough. Oral intake better. On IV ceftriaxone. Up in a chair June 22: Up in a chair. Oral intake good. Requesting to stay for 1 more day. Respiratory symptoms improved Active Medications Acetaminophen (Acetaminophen Tab 325 Mg Tab) 650 mg PO Q6HR PRN PRN Reason: Mild Pain or Fever > 100.5 Hydrocodone Bitart/Acetaminophen (Hydrocodone/Apap 10-325mg 1 Each Tab) 1 each PO QID PRN PRN Reason: Pain Last Admin: 07/20/21 06:03 Dose: 1 each Documented by: Albuterol/Ipratropium (Ipratropium-Albuterol 3 Ml Neb) 3 ml INHALATION RT-QID [facility] Last Admin: 07/20/21 11:40 Dose: 3 ml Documented by: Albuterol/Ipratropium (Ipratropium-Albuterol 3 Ml Neb) 3 ml INHALATION RT-Q6H PRN PRN Reason: Shortness Of Breath Last Admin: 07/18/21 02:06 Dose: 3 ml Documented by: Aspirin (Aspirin 81 Mg) 81 mg PO HS [facility] Last Admin: 07/19/21 21:47 Dose: 81 mg Documented by: Budesonide (Budesonide 1 Mg/2 Ml Nebu) 1 mg INHALATION RT-BID [facility] Last Admin: 07/20/21 08:30 Dose: 1 mg Documented by: Clopidogrel Bisulfate (Clopidogrel 75 Mg Tab) 75 mg PO DAILY [facility] Last Admin: 07/20/21 07:48 Dose: 75 mg Documented by: Donepezil HCl (Donepezil 5 Mg Tab) 5 mg PO DAILY [facility] Last Admin: 07/20/21 07:49 Dose: 5 mg Documented by: Famotidine (Famotidine 20 Mg Tab) 10 mg PO HS [facility] Last Admin: 07/19/21 21:46 Dose: 10 mg Documented by: Finasteride (Finasteride 5 Mg Tab) 5 mg PO DAILY [facility] Last Admin: 07/20/21 07:49 Dose: 5 mg Documented by: Gabapentin (Gabapentin 400 Mg Cap) 800 mg PO QID [facility] Last Admin: 07/20/21 12:08 Dose: 800 mg Documented by: Guaifenesin (Guaifenesin 600 Mg Tablet.Er) 600 mg PO QID [facility] Last Admin: 07/20/21 12:08 Dose: 600 mg Documented by: Sodium Chloride (Saline 0.45%) 1,000 mls @ 20 mls/hr IV .Q24H [facility] Last Admin: 07/20/21 12:08 Dose: 20 mls/hr Documented by: Ceftriaxone Sodium 1 gm/ (Sodium Chloride) 50 mls @ 100 mls/hr IVPB Q12HR [facility]; Protocol Last Admin: 07/20/21 07:49 Dose: 100 mls/hr Documented by: Lisinopril (Lisinopril 10 Mg Tab) 10 mg PO DAILY [facility] Last Admin: 07/20/21 07:48 Dose: 10 mg Documented by: Metoprolol Tartrate (Metoprolol Tartrate 50 Mg Tab) 50 mg PO BID [facility] Last Admin: 07/20/21 07:48 Dose: 50 mg Documented by: Naloxone HCl (Naloxone 0.4 Mg/Ml 1 Ml Vial) 0.2 mg IV Q2M PRN PRN Reason: Opioid Reversal Nicotine (Nicotine 14mg/24hr Patch) 1 patch TRANSDERM DAILY [facility] Last Admin: 07/20/21 07:48 Dose: 1 patch Documented by: Tamsulosin HCl (Tamsulosin 0.4 Mg Cap.Er.24h) 0.8 mg PO DAILY [facility] Last Admin: 07/20/21 07:48 Dose: 0.8 mg Documented by: Past medical history: To include: COPD, CVA, BPH, arthritis, prosthesis left leg, PAD, home oxygen 2 L at night, chronic Evans catheter, Social history: Patient being smoking a pack a day for over 60 years. Lives with his . Retired. Physical examination: VITAL SIGNS: 98.1, 56, 18, 139/70, 93% on 3 L GENERAL: Up in a chair, awake EYES: Pupils equal. Conjunctiva normal. HEENT: External appearance of nose and ears normal, oral cavity grossly normal. NECK: JVD not raised; masses not palpable. HEART: First and second heart sounds are normal; no edema. LUNGS: Respiratory rate increased; , decreased breath sounds ABDOMEN: Soft, nontender, liver spleen not palpable, no masses palpable. PSYCH: Answering questions better more awake. MUSCULOSKELETAL:No Clubbing/cyanosis;muscles-grossly intact. Left below-knee amputation INVESTIGATIONS, reviewed in the clinical context: Urine culture: E. coli July 19: White count 7.7 hemoglobin 12.4 platelets 181 sodium 132 potassium 3.9 creatinine 0.89 White count 12.1 hemoglobin 13.8 platelets 172 sodium 132 potassium 4.5 BUN 27 creatinine 1.0 UA positive for leukoesterase, WBC Urine drug screen positive for opiates Influenza type A, type B, RSV, COVID 19: Not detected EKG tracing personally reviewed by me-increased heart rate. Right bundle-branch block. Nonspecific ST segment changes. Chest x-ray film personally reviewed by me-possible infiltrate Assessment and plan: -Pneumonia suspected gram-negative organism: Improving Mucinex. IV ceftriaxone 1 g every 12. -Sepsis secondary to pneumonia: Better IV fluids -Acute UTI with cystitis secondary to chronic Evans catheter, from E. coli IV ceftriaxone -Acute delirium /metabolic encephalopathy from sepsis: Better -Acute COPD exacerbation in a current smoker: Slow to respond, DuoNeb, Pulmicort -Acute hyponatremia likely from decreased solid intake Encourage oral fluid intake -Chronic nicotine dependence cigarette smoker Nicotine patch -BPH Flomax 0.8 mg by mouth daily at bedtime -Bladder outflow structured requiring chronic Evans catheter, being followed by /urologist -Primary osteoarthritis -Left below-knee amputation, with prosthesis At baseline patient able to ambulate -Peripheral arterial disease -Chronic hypoxic respiratory failure requiring oxygen at home from underlying COPD 2 L of oxygen at home -Mild cognitive impairment possibly from late onset Alzheimer's dementia -Right bundle-branch block Doing much better. We'll change to oral antibiotic tomorrow and discharge
[2021-07-20] MEDS: FAMOTIDINE 20 MG TAB PO SCH (20:03)
[2021-07-20] MEDS: ASPIRIN 81 MG PO SCH (20:03)
[2021-07-21] MEDS: HYDROcodone/APAP 10-325MG 1 EACH TAB PO PRN ×2 (00:19→11:33)
[2021-07-21] MEDS: IPRATROPIUM-ALBUTEROL 3 ML NEB INHALATION SCH ×2 (08:12→11:44)
[2021-07-21] MEDS: BUDESONIDE 1 MG/2 ML NEBU INHALATION SCH (08:12)
[2021-07-21 08:57] VITALS: RESP 16; TEMP 98; BMI 26.0
[2021-07-21] MEDS: CLOPIDOGREL 75 MG TAB PO SCH (09:23)
[2021-07-21] MEDS: METOPROLOL TARTRATE 50 MG TAB PO SCH (09:23)
[2021-07-21] MEDS: TAMSULOSIN 0.4 MG CAP.ER.24H PO SCH (09:23)
[2021-07-21] MEDS: FINASTERIDE 5 MG TAB PO SCH (09:23)
[2021-07-21] MEDS: lisinopriL 10 MG TAB PO SCH (09:23)
[2021-07-21] MEDS: guaiFENesin 600 MG TABLET.ER PO SCH ×2 (09:23→12:13)
[2021-07-21] MEDS: NICOTINE 14MG/24HR PATCH TRANSDERM SCH (09:24)
[2021-07-21] MEDS: GABAPENTIN 400 MG CAP PO SCH ×2 (09:24→12:13)
[2021-07-21] MEDS: DONEPEZIL 5 MG TAB PO SCH (09:24)
[2021-07-21 10:36] VITALS: BP 135/75
[2021-07-21] MEDS: SODIUM CHLORIDE 0.45% 1,000 ML IV SCH (11:06)
[2021-07-21 11:52] VITALS: PULSE 70
--- NOTE | 2021-07-21 16:17 | P.DS ---
Providers Date of admission: 07/17/21 16:34 Expected date of discharge: 07/21/21 Attending physician: Angelo Rausch Primary care physician: Bob Boss [facility] Course: Chief Complaint: Altered mental status Hospital course: This is a [address] Boss. Lives with his / caregiver. Chronic stable medical conditions include BPH, chronic Evans catheter, osteoarthritis, left below knee amputation, peripheral artery disease. dementia. Normally able to around the house. uses oxygen at night. Patient was seen in the ER. Per the EMS report: The son reported that patient was increasingly confused. [place] warm. Not short of the patent 8 and now drank the morning. Normally the patient able to put his prosthetic leg on and has breakfast. Patient is found to be lethargic and confused by the EMS staff. In the ER patient had a temperature of 101.1. Patient was not sure why he is here. Sees his appetite is okay. Congested cough. Unable to expectorate. A bit tired and rundown. Unable to give me much of a history and the ER. They would answer simple questions. Admitted with pneumonia, UTI secondary to Evans catheter cultures growing E. coli, acute metabolic encephalopathy delirium. Responded well to IV ceftriaxone and IV fluids. Start is to respond better. Oral intake improved. July 21: Up in a chair. Eating well. Breathing much improved. Discussed with the patient. Patient be returning home not rehab. Seen by social work case manager. Discussion and discharge planning more than 35 minutes Past medical history: To include: COPD, CVA, BPH, arthritis, prosthesis left leg, PAD, home oxygen 2 L at night, chronic Evans catheter, Social history: Patient being smoking a pack a day for over 60 years. Lives with his . Retired. Physical examination: VITAL SIGNS: 98, 80, 16, 135/75 checked manually GENERAL: Up in a chair, awake EYES: Pupils equal. Conjunctiva normal. HEENT: External appearance of nose and ears normal, oral cavity grossly normal. NECK: JVD not raised; masses not palpable. HEART: First and second heart sounds are normal; no edema. LUNGS: Respiratory rate normal; , decreased breath sounds ABDOMEN: Soft, nontender, liver spleen not palpable, no masses palpable. PSYCH: Answering questions appropriately. MUSCULOSKELETAL:No Clubbing/cyanosis;muscles-grossly intact. Left below-knee amputation INVESTIGATIONS, reviewed in the clinical context: Urine culture: E. coli July 19: White count 7.7 hemoglobin 12.4 platelets 181 sodium 132 potassium 3.9 creatinine 0.89 White count 12.1 hemoglobin 13.8 platelets 172 sodium 132 potassium 4.5 BUN 27 creatinine 1.0 UA positive for leukoesterase, WBC Urine drug screen positive for opiates Influenza type A, type B, RSV, COVID 19: Not detected EKG tracing personally reviewed by me-increased heart rate. Right bundle-branch block. Nonspecific ST segment changes. Chest x-ray film personally reviewed by me-possible infiltrate Assessment and plan: -Pneumonia suspected gram-negative organism: Better Mucinex. IV ceftriaxone 1 g every 12. DC on Ceftin -Sepsis secondary to pneumonia: Better IV fluids -Acute UTI with cystitis secondary to chronic Evans catheter, from E. coli IV ceftriaxone. Complete 7 days of Ceftin 5 mg twice a day -Acute delirium /metabolic encephalopathy from sepsis: Resolved -Acute COPD exacerbation in a current smoker: Better DuAntoniob Pulmicort -Acute hyponatremia likely from decreased solid intake Encourage oral fluid intake -Chronic nicotine dependence cigarette smoker Nicotine patch -BPH Flomax 0.8 mg by mouth daily at bedtime -Bladder outflow structured requiring chronic Evans catheter, being followed by /urologist -Primary osteoarthritis -Left below-knee amputation, with prosthesis At baseline patient able to ambulate -Peripheral arterial disease -Chronic hypoxic respiratory failure requiring oxygen at home from underlying COPD 2 L of oxygen at home -Mild cognitive impairment possibly from late onset Alzheimer's dementia -Right bundle-branch block Disposition: Home Patient Condition at Discharge: Fair Plan - Discharge Summary Discharge Rx Participant: No New Discharge Prescriptions: New Cefuroxime Axetil [Ceftin] 500 mg PO BID #14 tab Nicotine 14Mg/24Hr Patch [Habitrol] 1 patch TRANSDERM DAILY #14 patch Ipratropium-Albuterol Nebulize [Duoneb 0.5 mg-3 mg/3 ml Soln] 3 ml INHALATION TID #90 ml Metoprolol Tartrate [Lopressor] 50 mg PO BID #60 tab Finasteride [Proscar] 5 mg PO DAILY #30 tab Budesonide/Formoterol Fumarate [Symbicort 80-4.5 Mcg Inhaler] 1 puff INHALATION BID #10.8 gm Continue Tamsulosin [Flomax] 0.8 mg PO HS Benazepril [Lotensin] 10 mg PO HS Donepezil [Aricept] 5 mg PO HS Aspirin EC [Ecotrin Low Dose] 81 mg PO HS Clopidogrel Bisulfate [Plavix] 75 mg PO HS Famotidine [Pepcid AC] 10 mg PO HS HYDROcodone/APAP 10-325MG [[place] 10-325] 1 tab PO QID PRN PRN Reason: Pain Gabapentin 800 mg PO QID Multivit-Min/FA/Lycopen/Lutein [Centrum Silver Tablet] 1 tab PO HS Discontinued Ipratropium/Albuter 20-100Mcg [Combivent Respimat 20-100Mcg Inhaler] 1 puff INHALATION RT-QID PRN PRN Reason: Shortness Of Breath Discharge Medication List Tamsulosin [Flomax] 0.8 mg PO HS 04/02/15 [History] Benazepril [Lotensin] 10 mg PO HS 05/14/19 [History] Donepezil [Aricept] 5 mg PO HS 05/14/19 [History] Aspirin EC [Ecotrin Low Dose] 81 mg PO HS 07/17/21 [History] Clopidogrel Bisulfate [Plavix] 75 mg PO HS 07/17/21 [History] Famotidine [Pepcid AC] 10 mg PO HS 07/17/21 [History] Gabapentin 800 mg PO QID 07/17/21 [History] HYDROcodone/APAP 10-325MG [[place] 10-325] 1 tab PO QID PRN 07/17/21 [History] Multivit-Min/FA/Lycopen/Lutein [Centrum Silver Tablet] 1 tab PO HS 07/17/21 [History] Budesonide/Formoterol Fumarate [Symbicort 80-4.5 Mcg Inhaler] 1 puff INHALATION BID #10.8 gm 07/21/21 [Rx] Cefuroxime Axetil [Ceftin] 500 mg PO BID #14 tab 07/21/21 [Rx] Finasteride [Proscar] 5 mg PO DAILY #30 tab 07/21/21 [Rx] Ipratropium-Albuterol Nebulize [Duoneb 0.5 mg-3 mg/3 ml Soln] 3 ml INHALATION TID #90 ml 07/21/21 [Rx] Metoprolol Tartrate [Lopressor] 50 mg PO BID #60 tab 07/21/21 [Rx] Nicotine 14Mg/24Hr Patch [Habitrol] 1 patch TRANSDERM DAILY #14 patch 07/21/21 [Rx] Follow up Appointment(s)/Referral(s): Bob Boss MD [Primary Care Provider] - 07/28/21 (Keep already scheduled appointment. ) [facility] Visiting Nurse, [NON-STAFF] - As Needed Patient Instructions/Handouts: Urinary Tract Infection in Men (DC), COPD (Chronic Obstructive Pulmonary Disease) (DC) Discharge Disposition: HOME SELF-CARE
== END 2021-07-21 13:11 | disposition home health service (06) | DRG 871 ==
LOC: EC 13:20 → 4SSUR 16:34
PROVIDERS: ADMIT Hospitalist; ATTEND Hospitalist
DX: A41.50 Gram-negative sepsis, unspecified (principal); G93.41 Metabolic encephalopathy; J15.6 Pneumonia due to other Gram-negative bacteria; T83.511A Infection and inflammatory reaction due to indwelling urethral catheter, initial encounter; J96.11 Chronic respiratory failure with hypoxia; J44.0 Chronic obstructive pulmonary disease with (acute) lower respiratory infection; E87.1 Hypo-osmolality and hyponatremia; J44.1 Chronic obstructive pulmonary disease with (acute) exacerbation; N13.8 Other obstructive and reflux uropathy; N30.00 Acute cystitis without hematuria; I45.2 Bifascicular block; F05 Delirium due to known physiological condition; G30.1 Alzheimer's disease with late onset; F02.80 Dementia in other diseases classified elsewhere, unspecified severity, without behavioral disturbance, psychotic disturbance, mood disturbance, and anxiety; R65.20 Severe sepsis without septic shock; I73.9 Peripheral vascular disease, unspecified; Z89.512 Acquired absence of left leg below knee; Z20.822 Contact with and (suspected) exposure to COVID-19; B96.20 Unspecified Escherichia coli [E. coli] as the cause of diseases classified elsewhere; E86.0 Dehydration; N40.1 Benign prostatic hyperplasia with lower urinary tract symptoms; M19.91 Primary osteoarthritis, unspecified site; Z79.02 Long term (current) use of antithrombotics/antiplatelets; F17.210 Nicotine dependence, cigarettes, uncomplicated; Z79.82 Long term (current) use of aspirin; Z79.899 Other long term (current) drug therapy; Z90.49 Acquired absence of other specified parts of digestive tract; Z97.14 Presence of artificial left leg (complete) (partial); Z87.19 Personal history of other diseases of the digestive system; Z95.828 Presence of other vascular implants and grafts; Z90.89 Acquired absence of other organs; Z86.73 Personal history of transient ischemic attack (TIA), and cerebral infarction without residual deficits; Z98.890 Other specified postprocedural states; Z71.3 Dietary counseling and surveillance; Y84.6 Urinary catheterization as the cause of abnormal reaction of the patient, or of later complication, without mention of misadventure at the time of the procedure; Z80.1 Family history of malignant neoplasm of trachea, bronchus and lung; Z82.5 Family history of asthma and other chronic lower respiratory diseases
CPT/HCPCS: 36415; 71045; 71046; 80048; 80053; 80306; 81001; 82140; 82550; 83605; 84484; 85025; 85610; 85730; 87040; 87077; 87086; 87186; 87636; 93005; 94640; 94760; 96374; 96375; 99285

== ENCOUNTER 2021-11-28 22:04 | Inpatient (IN) | payer MEDICARE ==
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
[2021-11-28] MEDS ORDERED: SODIUM CHLORIDE 0.9% 500 ML 500 ML IV STA (22:29)
[2021-11-28] MEDS ORDERED: IPRATROPIUM-ALBUTEROL 3 ML NEB INHALATION STA (22:29)
[2021-11-28] MEDS ORDERED: SODIUM CHLORIDE 0.9% 1,000 ML IV STA (22:29)
[2021-11-28] MEDS ORDERED: methylPREDNISolone SOD SUCCI 125 MG/2 ML VIAL IV STA (22:29)
[2021-11-28 22:52] LABS: Basophils % (A) 0 %; Eosinophils # (A) 0.1 k/uL (0-0.7); Eosinophils % (A) 1 %; HCT 38.1 % (39.0-53.0); HGB 12.3 gm/dL (13.0-17.5); Lymphocytes # (A) 1.6 k/uL (1.0-4.8); Lymphocytes % (A) 11 %; MCH 30.4 pg (25.0-35.0); MCHC 32.3 g/dL (31.0-37.0); MCV 94.1 fL (80.0-100.0); Mean Platelet Volume 7.4; Monocytes % (A) 6 %; Neutrophils # (A) 11.9 k/uL (1.3-7.7); Neutrophils % (A) 81 %; Platelet Count 213 k/uL (150-450); RBC 4.05 m/uL (4.30-5.90); RDW 12.9 % (11.5-15.5); WBC 14.8 k/uL (3.8-10.6)
--- NOTE | 2021-11-28 23:01 | XR ---
EXAMINATION TYPE: XR chest 1V portable DATE OF EXAM: 11/28/2021 COMPARISON: 07/18/2021 HISTORY: Cough TECHNIQUE: Single view FINDINGS: Heart is normal. Lungs are clear of consolidation. There are no hilar masses. There are rodrigue[address] st leads. Costophrenic angles are clear. IMPRESSION: No active cardiopulmonary disease. Normal heart. No change.
[2021-11-28 23:03] LABS: ALT 15 U/L (4-49); AST 31 U/L (17-59); African American GFR (CKD) >90 (>60 ml/min/1.73 sqM); Albumin 4.1 g/dL (3.5-5.0); Alkaline Phosphatase 70 U/L (38-126); Anion Gap 8 mmol/L; Blood Urea Nitrogen 20 mg/dL (9-20); Calcium 9.1 mg/dL (8.4-10.2); Carbon Dioxide 23 mmol/L (22-30); Chloride 97 mmol/L (98-107); Glucose 116 mg/dL (74-99); Magnesium 1.7 mg/dL (1.6-2.3); Non-African American GFR(CKD) 85 (>60 ml/min/1.73 sqM); Potassium 4.3 mmol/L (3.5-5.1); Sodium 128 mmol/L (137-145); Total Bilirubin 0.8 mg/dL (0.2-1.3); Total Protein 7.3 g/dL (6.3-8.2)
[2021-11-28 23:06] LABS: Partial Thromboplastin Time 32.5 sec (22.0-30.0); Prothrombin Time 10.5 sec (9.0-12.0)
[2021-11-29] MEDS ORDERED: IPRATROPIUM-ALBUTEROL 3 ML NEB INHALATION STA (00:57)
[2021-11-29] MEDS ORDERED: NALOXONE 0.4 MG/ML 1 ML VIAL IV PRN (00:57)
[2021-11-29] MEDS ORDERED: ONDANSETRON 4 MG/2 ML VIAL IVP PRN (00:57)
[2021-11-29] MEDS ORDERED: MORPHINE SULFATE 4 MG/ML SYRINGE IV PRN (01:00)
[2021-11-29] MEDS: methylPREDNISolone SOD SUCCI 125 MG/2 ML VIAL IV SCH ×2 (05:49→11:09)
[2021-11-29] MEDS ORDERED: ALBUTEROL NEBULIZED 2.5 MG/3 ML INHALATION SCH (08:00)
[2021-11-29] MEDS ORDERED: BUDESONIDE 0.5 MG/2 ML NEBU INHALATION SCH (10:23)
[2021-11-29] MEDS ORDERED: GABAPENTIN 400 MG CAP PO SCH (10:23)
[2021-11-29] MEDS: METOPROLOL TARTRATE 50 MG TAB PO SCH ×2 (11:06→22:00)
[2021-11-29] MEDS: FINASTERIDE 5 MG TAB PO SCH (11:07)
[2021-11-29] MEDS ORDERED: CALCIUM CARBONATE 500 MG CHEWABLE PO PRN (11:14)
[2021-11-29] MEDS ORDERED: ACETAMINOPHEN TAB 325 MG TAB PO PRN (11:14)
[2021-11-29] MEDS ORDERED: LACTULOSE 20 GM/30 ML CUP PO PRN (11:14)
[2021-11-29] MEDS ORDERED: LORazepam 0.5 MG TAB PO PRN (11:14)
[2021-11-29] MEDS ORDERED: TEMAZEPAM 15 MG CAP PO PRN (11:14)
[2021-11-29] MEDS: ENOXAPARIN 40 MG/0.4 ML SYRINGE SQ SCH (11:27)
[2021-11-29] MEDS: guaiFENesin 600 MG TABLET.ER PO SCH ×4 (11:27→22:00)
[2021-11-29] MEDS: IPRATROPIUM-ALBUTEROL 3 ML NEB INHALATION SCH ×4 (11:49→20:00)
[2021-11-29] MEDS: BUDESONIDE 1 MG/2 ML NEBU INHALATION SCH ×2 (11:49→20:00)
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
[2021-11-29] MEDS: GABAPENTIN 400 MG CAP PO SCH ×2 (15:36→22:00)
--- NOTE | 2021-11-29 18:02 | XR ---
EXAMINATION TYPE: XR chest 2V DATE OF EXAM: 11/29/2021 COMPARISON: 02/28/2022 HISTORY: Short of breath TECHNIQUE: FINDINGS: Heart is normal. There is slight blunting of the costophrenic angles. There is some coarsen ing of interstitial markings in the lower lung caruso. No heart failure. There are no hilar masses. M ediastinum is normal. Thoracic aorta shows mild atheromatous changes. Bony thorax is intact. IMPRESSION: There is minimal pleural reaction and interstitial density at the lung bases which is inc reased compared to yesterday. No heart failure seen.
[2021-11-29] MEDS: methylPREDNISolone SOD SUCCI 40 MG/ML 1 ML VIAL IV SCH (20:24)
[2021-11-29] MEDS: lisinopriL 10 MG TAB PO SCH (21:59)
[2021-11-29] MEDS: CLOPIDOGREL 75 MG TAB PO SCH (22:00)
[2021-11-29] MEDS: TAMSULOSIN 0.4 MG CAP.ER.24H PO SCH (22:00)
[2021-11-29] MEDS: DONEPEZIL 5 MG TAB PO SCH (22:01)
[2021-11-30] MEDS: methylPREDNISolone SOD SUCCI 40 MG/ML 1 ML VIAL IV SCH ×3 (00:25→17:00)
[2021-11-30] MEDS: IPRATROPIUM-ALBUTEROL 3 ML NEB INHALATION SCH ×6 (00:42→20:25)
[2021-11-30] MEDS: BUDESONIDE 1 MG/2 ML NEBU INHALATION SCH ×2 (08:41→20:25)
[2021-11-30] MEDS: METOPROLOL TARTRATE 50 MG TAB PO SCH ×2 (08:55→20:01)
[2021-11-30] MEDS: GABAPENTIN 400 MG CAP PO SCH ×3 (08:58→20:02)
[2021-11-30] MEDS: FINASTERIDE 5 MG TAB PO SCH (08:58)
[2021-11-30] MEDS: guaiFENesin 600 MG TABLET.ER PO SCH ×4 (08:58→20:02)
[2021-11-30] MEDS: ENOXAPARIN 40 MG/0.4 ML SYRINGE SQ SCH (08:59)
[2021-11-30 10:22] LABS: Basophils # (A) 0.01 X 10*3/uL (0.00-0.10); Basophils % (A) 0.1 %; Eosinophils # (A) 0 X 10*3/uL (0.04-0.35); Eosinophils % (A) 0 %; HCT 33.9 % (39.6-50.0); HGB 10.8 g/dL (13.0-17.0); Immature Grans, Automated 0.7 %; Lymphocytes # (A) 0.68 X 10*3/uL (0.90-5.00); Lymphocytes % (A) 3.5 %; MCH 29.2 pg (27.0-32.0); MCHC 31.9 g/dL (32.0-37.0); MCV 91.6 fL (80.0-97.0); Mean Platelet Volume 10.6 fL (9.5-12.2); Monocytes % (A) 2.6 %; NRBC Per 100 WBC 0 /100 WBCS (0.0-0.0); Neutrophils # (A) 18.07 X 10*3/uL (1.80-7.70); Neutrophils % (A) 93.1 %; Platelet Count 205 X 10*3/uL (140-440); RDW 13.5 % (11.5-14.5); WBC 19.39 X 10*3/uL (4.50-10.00)
[2021-11-30 10:43] LABS: African American GFR (CKD) 94.5 (60.0-200.0); Albumin 3.6 g/dL (3.8-4.9); Albumin/Globulin Ratio 1.24 (1.60-3.17); Anion Gap 8.4 mmol/L (10.00-18.00); BUN/Creat Ratio 26.22 Ratio (12.00-20.00); Blood Urea Nitrogen 23.6 mg/dL (9.0-27.0); Calcium 9.3 mg/dL (8.7-10.3); Carbon Dioxide 25.6 mmol/L (20.0-27.5); Globulin 2.9 g/dL (1.6-3.3); Magnesium 2.1 mg/dL (1.5-2.4); Non-African American GFR(CKD) 81.5 (60.0-200.0); Phosphorus 2.9 mg/dL (2.4-5.1); Potassium 5.6 mmol/L (3.5-5.5); Total Bilirubin 0.2 mg/dL (0.30-1.20); Total Protein 6.5 g/dL (6.2-8.2)
[2021-11-30] MEDS ORDERED: SODIUM POLYSTYRENE SULFONATE 15 GM/60 ML BOTTLE PO STA (11:45)
--- NOTE | 2021-11-30 18:56 | P.PN ---
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 Lives with his / caregiver. Chronic stable medical conditions include BPH, chronic Evans catheter, osteoarthritis, left below knee amputation, peripheral artery disease. dementia. Normally able get around the house. uses oxygen at night. Patient presents with worsening short of breath. Congested cough. Yellow sputum. Appetite is okay. Has has chills. No change in bowel pattern. Wheezing. Tired. Patient not the best of historians. Has a prosthetic left leg Admitted with pneumonia, COPD exacerbation, hyponatremia. Started on IV ceftriaxone, DuoNeb, steroids, IV fluids November 30: Eating better. Some shortness of breath. Cough is sputum present. IV ceftriaxone, DuoNeb, IV Solu-Medrol. Active Medications Acetaminophen (Acetaminophen Tab 325 Mg Tab) 650 mg PO Q6HR PRN PRN Reason: Mild Pain or Fever > 100.5 Hydrocodone Bitart/Acetaminophen (Hydrocodone/Apap 10-325mg 1 Each Tab) 1 each PO Q4H PRN PRN Reason: Pain Albuterol/Ipratropium (Ipratropium-Albuterol 3 Ml Neb) 3 ml INHALATION RT-Q4H [facility] Last Admin: 11/30/21 15:10 Dose: 3 ml Budesonide (Budesonide 1 Mg/2 Ml Nebu) 1 mg INHALATION RT-BID [facility] Last Admin: 11/30/21 08:41 Dose: 1 mg Calcium Carbonate/Glycine (Calcium Carbonate 500 Mg Chewable) 1,000 mg PO Q4HR PRN PRN Reason: Dyspepsia Clopidogrel Bisulfate (Clopidogrel 75 Mg Tab) 75 mg PO [facility] Last Admin: 11/29/21 22:00 Dose: 75 mg Donepezil HCl (Donepezil 5 Mg Tab) 5 mg PO [facility] Last Admin: 11/29/21 22:01 Dose: 5 mg Enoxaparin Sodium (Enoxaparin 40 Mg/0.4 Ml Syringe) 40 mg SQ DAILY [facility] Last Admin: 11/30/21 08:59 Dose: 40 mg Finasteride (Finasteride 5 Mg Tab) 5 mg PO DAILY [facility] Last Admin: 11/30/21 08:58 Dose: 5 mg Gabapentin (Gabapentin 400 Mg Cap) 800 mg PO TID [facility] Last Admin: 11/30/21 17:00 Dose: 800 mg Guaifenesin (Guaifenesin 600 Mg Tablet.Er) 600 mg PO QID [facility] Last Admin: 11/30/21 17:00 Dose: 600 mg Ceftriaxone Sodium 1 gm/ (Sodium Chloride) 50 mls @ 100 mls/hr IVPB Q12HR [facility]; Protocol Last Admin: 11/30/21 08:59 Dose: 100 mls/hr Lactulose (Lactulose 20 Gm/30 Ml Cup) 20 gm PO DAILY PRN PRN Reason: Constipation Lisinopril (Lisinopril 10 Mg Tab) 10 mg PO HS [facility] Last Admin: 11/29/21 21:59 Dose: 10 mg Lorazepam (Lorazepam 0.5 Mg Tab) 0.5 mg PO Q6HR PRN PRN Reason: Anxiety Methylprednisolone Sodium Succinate (Methylprednisolone Sod Succi 40 Mg/Ml 1 Ml Vial) 40 mg IV Q8HR [facility] Last Admin: 11/30/21 17:00 Dose: 40 mg Metoprolol Tartrate (Metoprolol Tartrate 50 Mg Tab) 50 mg PO BID [facility] Last Admin: 11/30/21 08:55 Dose: Not Given Morphine Sulfate (Morphine Sulfate 4 Mg/Ml Syringe) 4 mg IV Q4HR PRN PRN Reason: Severe Pain Naloxone HCl (Naloxone 0.4 Mg/Ml 1 Ml Vial) 0.2 mg IV Q2M PRN PRN Reason: Opioid Reversal Ondansetron HCl (Ondansetron 4 Mg/2 Ml Vial) 4 mg IVP Q8HR PRN PRN Reason: Nausea And Vomiting Tamsulosin HCl (Tamsulosin 0.4 Mg Cap.Er.24h) 0.8 mg PO [facility] Last Admin: 11/29/21 22:00 Dose: 0.8 mg Temazepam (Temazepam 15 Mg Cap) 15 mg PO HS PRN PRN Reason: Insomnia Past medical history: To include: COPD, CVA, BPH, arthritis, prosthesis left leg, PAD, home oxygen 2 L at night, chronic Evans catheter, Social history: Patient being smoking a pack a day for over 60 years. Lives with his . Retired. Physical examination: VITAL SIGNS: 98.1, 70, 17, 146.57, 94% on 4 L GENERAL: He planning in bed, awake, tired EYES: Pupils equal. Conjunctiva normal. HEENT: External appearance of nose and ears normal, oral cavity grossly normal. NECK: JVD not raised; masses not palpable. HEART: First and second heart sounds are normal; no edema. LUNGS: Respiratory rate increased; coarse breath sounds , decreased breath sounds, wheezing. ABDOMEN: Soft, nontender, liver spleen not palpable, no masses palpable. PSYCH: Able to answer only simple questions. He thinks it is May. Knows the year. MUSCULOSKELETAL:No Clubbing/cyanosis;muscles-grossly intact. Left below-knee amputation INVESTIGATIONS, reviewed in the clinical context: November 30: White count 19.3 hemoglobin 10.8 sodium 1:30 potassium 5.6 creatinine 0.9 White count 14.8 hemoglobin 12.3 platelets 213 sodium 128 potassium 4.3 BUN 20 creatinine 0.81 EKG tracing personally reviewed by me-sinus rhythm, rate 86, right bundle-branch block Chest x-ray film personally reviewed by me-right basilar infiltrate Assessment and plan: - Right lower lobePneumonia suspected gram-negative organism:: Start respond IV ceftriaxone 1 g everyMucinex. Sputum for Gram stain and culture pending -Acute COPD exacerbation in a current smoker:: Slow to respond DuoNeb every 4 , Pulmicort, IV Solu-Medrol -Acute hyponatremia likely from decreased solid intake , some improvement Encourage oral fluid intake -Hyperkalemia, new diagnosis Kayexalate 45 g. Renal diet. Repeat labs. -Chronic nicotine dependence cigarette smoker Nicotine patch -BPH Flomax 0.8 mg by mouth daily at bedtime, Proscar -Bladder outflow structured requiring chronic Evans catheter, being followed by /urologist -Primary osteoarthritis -Left below-knee amputation, with prosthesis At baseline patient able to ambulate -Peripheral arterial disease on Plavix -Chronic hypoxic respiratory failure requiring oxygen at home from underlying COPD 2 L of oxygen at home -moderate cognitive impairment possibly from late onset Alzheimer's dementia -Right bundle-branch block -Full code IV ceftriaxone, oxygen, DuoNeb, Pulmicort. Sputum Gram stain pending. Kayexalate 45 g..
[2021-11-30] MEDS: CLOPIDOGREL 75 MG TAB PO SCH (20:02)
[2021-11-30] MEDS: DONEPEZIL 5 MG TAB PO SCH (20:02)
[2021-11-30] MEDS: lisinopriL 10 MG TAB PO SCH (20:02)
[2021-11-30] MEDS: TAMSULOSIN 0.4 MG CAP.ER.24H PO SCH (20:02)
[2021-12-01] MEDS: IPRATROPIUM-ALBUTEROL 3 ML NEB INHALATION SCH ×7 (00:06→23:14)
[2021-12-01] MEDS: methylPREDNISolone SOD SUCCI 40 MG/ML 1 ML VIAL IV SCH ×3 (00:40→22:47)
[2021-12-01] MEDS: guaiFENesin 600 MG TABLET.ER PO SCH ×4 (07:17→21:50)
[2021-12-01] MEDS: FINASTERIDE 5 MG TAB PO SCH (07:18)
[2021-12-01] MEDS: HYDROcodone/APAP 10-325MG 1 EACH TAB PO PRN ×3 (07:18→21:52)
[2021-12-01] MEDS: METOPROLOL TARTRATE 50 MG TAB PO SCH ×2 (07:18→21:50)
[2021-12-01] MEDS: GABAPENTIN 400 MG CAP PO SCH ×3 (07:18→21:50)
[2021-12-01] MEDS: ENOXAPARIN 40 MG/0.4 ML SYRINGE SQ SCH (07:20)
[2021-12-01] MEDS: BUDESONIDE 1 MG/2 ML NEBU INHALATION SCH ×2 (07:37→20:09)
[2021-12-01 07:47] LABS: African American GFR (CKD) >90 (>60 ml/min/1.73 sqM); Anion Gap 5 mmol/L; Blood Urea Nitrogen 22 mg/dL (9-20); Calcium 8.8 mg/dL (8.4-10.2); Carbon Dioxide 29 mmol/L (22-30); Chloride 94 mmol/L (98-107); Glucose 145 mg/dL (74-99); Non-African American GFR(CKD) 86 (>60 ml/min/1.73 sqM); Potassium 4.4 mmol/L (3.5-5.1); Sodium 128 mmol/L (137-145)
--- NOTE | 2021-12-01 11:08 | XR ---
EXAMINATION TYPE: XR chest 2V DATE OF EXAM: 12/01/2021 10:38 AM COMPARISON: Chest radiographs from 11/29/2021 TECHNIQUE: XR chest 2V Frontal and lateral views of the chest. CLINICAL INDICATION:Male, 76 years old with history of follow up, hypoxia; FINDINGS: Lungs/Pleura: There is flattening of the diaphragm with increased lucency of the lungs. No evidence o f pneumothorax, pleural effusion or focal consolidation. Pulmonary vascularity: Unremarkable. Heart/mediastinum: Cardiomediastinal silhouette is unremarkable. Musculoskeletal: No acute osseous pathology. IMPRESSION: 1. Bibasilar atelectasis without acute cardiopulmonary disease process. 2. COPD changes.
[2021-12-01] MEDS: INSULIN ASPART (NovoLOG) 100 UNIT/ML VIAL SQ SCH ×3 (13:43→21:49)
[2021-12-01] MEDS ORDERED: FUROSEMIDE 10 MG/ML 2 ML VIAL IV ONE (15:16)
--- NOTE | 2021-12-01 15:27 | P.PN ---
Subjective Progress Note Date: 12/01/21 Hospital course: This is a [address] Boss. Lives with his / caregiver. Chronic stable medical conditions include BPH, chronic Evans catheter, osteoarthritis, left below knee amputation, peripheral artery disease. dementia. Normally able get around the house. uses oxygen at night. Patient presents with worsening short of breath. Congested cough. Yellow sputum. Appetite is okay. Has has chills. No change in bowel pattern. Wheezing. Tired. Patient not the best of historians. Has a prosthetic left leg Admitted with pneumonia, COPD exacerbation, hyponatremia. Started on IV ceftriaxone, DuoNeb, steroids, IV fluids Past medical history: To include: COPD, CVA, BPH, arthritis, prosthesis left leg, PAD, home oxygen 2 L at night, chronic Evans catheter, Social history: Patient being smoking a pack a day for over 60 years. Lives with his . Retired. INVESTIGATIONS, reviewed in the clinical context: November 30: White count 19.3 hemoglobin 10.8 sodium 1:30 potassium 5.6 creatinine 0.9 White count 14.8 hemoglobin 12.3 platelets 213 sodium 128 potassium 4.3 BUN 20 creatinine 0.81 EKG tracing personally reviewed by me-sinus rhythm, rate 86, right bundle-branch block Chest x-ray film personally reviewed by me-right basilar infiltrate November 30: Eating better. Some shortness of breath. Cough is sputum present. IV ceftriaxone, DuoNeb, IV Solu-Medrol. 12/01/2021 Patient evaluated today sitting up in chair with family at the bedside. Reports shortness of breath at rest, improved some. No chest pain. No nausea, vomiting, diarrhea. He has some end expiratory wheeze, lungs are tight today. Sodium is also down to 128, blood pressure increasing. Will give a small dose of IV lasix and repeat labs tomorrow. Also decrease steroids to 40 mg Q12. He continues on IV ceftriaxone. Sputum culture pending. Repeat chest xray today showing bibasilar atelectasis without acute cardiopulmonary disease. COPD. Will also order incentive spirometer. Glucose 145, add novolog. Afebrile, heart rate 59, blood pressure 168/50, 93% 3.5 L nasal cannula. Review of Systems Constitutional: Denied any fatigue denied any fever. Cardio vascular: denied any chest pain, palpitations Gastrointestinal: denied any nausea, vomiting, diarrhea Pulmonary: Reports shortness of breath, reports cough Neurologic denied any new focal deficits All inpatient medications were reviewed and appropriate changes in these medications as dictated in the interval history and assessment and plan. Physical Examination GENERAL: Sitting up in chair. EYES: Pupils equal. Conjunctiva normal. HEENT: External appearance of nose and ears normal, oral cavity grossly normal. NECK: JVD not raised; masses not palpable. HEART: First and second heart sounds are normal; no edema. LUNGS: Respiratory rate increased; coarse breath sounds , decreased breath sounds, end expiratory wheeze, congested cough ABDOMEN: Soft, nontender, liver spleen not palpable, no masses palpable. PSYCH: Mentation improving, alert x 3. MUSCULOSKELETAL:No Clubbing/cyanosis;muscles-grossly intact. Left below-knee am putation Assessment and plan: - Right lower lobe Pneumonia suspected gram-negative organism: IV ceftriaxone 1 g every 24 hours, Mucinex. Sputum for Gram stain and culture pending Repeat white count in AM -Acute COPD exacerbation in a current smoker:: Slow to respond DuoNeb every 4 , Pulmicort, IV Solu-Medrol -Acute hyponatremia likely from decreased solid intake , some improvement Encourage oral fluid intake possible component of fluid overload, dose of IV lasix given today -Hyperkalemia, new diagnosis, improved. Kayexalate 45 g. Renal diet. Repeat labs. -Steroid induced hypergylcemia Started on novolog s/s coverage while inpatient -Chronic nicotine dependence cigarette smoker Nicotine patch Education given on importance of cessation, patient states he will continue to smoke as soon as he is discharged -BPH Flomax 0.8 mg by mouth daily at bedtime, Proscar -Bladder outflow structured requiring chronic Evans catheter, being followed by /urologist -Primary osteoarthritis -Left below-knee amputation, with prosthesis At baseline patient able to ambulate -Peripheral arterial disease on Plavix -Chronic hypoxic respiratory failure requiring oxygen at home from underlying COPD 2 L of oxygen at home -moderate cognitive impairment possibly from late onset Alzheimer's dementia Mentation better today able to converse, family at bedside -Right bundle-branch block -Full code Continue oxygen support, DuoNeb, Pulmicort. Sputum Gram stain pending. Give one time dose IV lasix today. PT/OT consultation home with homecare versus subacute rehab. Patient is given prescription for nebulizer on discharge he is requesting one. Procalcitonin level is 0.09, will discontinue IV antibiotics and give short course of oral azithromycin for 3 days. IV steroids decreased to Q12. Continue to encourage cough and deep breathing. Educated on smoking cessation. Repeat la bs in AM. Possible discharge in 24 to 48 hours. The impression and plan of care has been dictated by Brinda Lackey, Nurse Practitioner as directed. Dr. Ole MD I have performed a history and physical examination and medical decision making of this patient, discussed the same with the dictator, and agree with the dictators assessment and plan as written, documented as a scribe. Based on total visit time, I have performed more than 50% of this visit. Objective - Vital Signs Vital signs: Vital Signs Temp 97.6 F 12/01/21 08:00 Pulse 59 L 12/01/21 11:46 Resp 18 12/01/21 08:00 BP 173/66 12/01/21 08:00 Pulse Ox 92 L 12/01/21 08:00 FiO2 Intake & Output 11/30/21 12/01/21 12/01/21 18:59 06:59 18:59 Intake Total 540 Output Total 700 1540 Balance -160 -1540 Intake: Oral 540 Output: Urine 700 1540 Other: Voiding Method Indwelling Catheter Indwelling Catheter - Labs CBC & Chem 7: 11/30/21 06:17 12/01/21 06:35 Labs: Abnormal Lab Results - Last 24 Hours (Table) 12/01/21 Range/Units 06:35 Sodium 128 L (137-145) mmol/L Chloride 94 L (98-107) mmol/L BUN 22 H (9-20) mg/dL Glucose 145 H (74-99) mg/dL Microbiology - Last 24 Hours (Table) 11/29/21 20:23 Gram Stain - Preliminary Sputum Sputum Culture - Preliminary Assessment and Plan Time with Patient: Less than 30
[2021-12-01 16:44] LABS: Glucose,Whole Blood 128 mg/dL (70-110)
[2021-12-01 21:09] LABS: Glucose,Whole Blood 151 mg/dL (70-110)
[2021-12-01] MEDS: TAMSULOSIN 0.4 MG CAP.ER.24H PO SCH (21:49)
[2021-12-01] MEDS: lisinopriL 10 MG TAB PO SCH (21:50)
[2021-12-01] MEDS: DONEPEZIL 5 MG TAB PO SCH (21:50)
[2021-12-01] MEDS: CLOPIDOGREL 75 MG TAB PO SCH (21:50)
[2021-12-02] MEDS: IPRATROPIUM-ALBUTEROL 3 ML NEB INHALATION SCH ×6 (03:08→23:48)
[2021-12-02 07:03] LABS: Glucose,Whole Blood 156 mg/dL (70-110)
[2021-12-02] MEDS: BUDESONIDE 1 MG/2 ML NEBU INHALATION SCH ×2 (07:38→23:09)
[2021-12-02] MEDS: guaiFENesin 600 MG TABLET.ER PO SCH ×4 (07:51→23:25)
[2021-12-02] MEDS: HYDROcodone/APAP 10-325MG 1 EACH TAB PO PRN ×3 (07:51→19:54)
[2021-12-02] MEDS: AZITHROMYCIN 500 MG TAB PO SCH (07:52)
[2021-12-02] MEDS: GABAPENTIN 400 MG CAP PO SCH ×3 (07:52→21:08)
[2021-12-02] MEDS: INSULIN ASPART (NovoLOG) 100 UNIT/ML VIAL SQ SCH ×4 (07:52→21:07)
[2021-12-02] MEDS: ENOXAPARIN 40 MG/0.4 ML SYRINGE SQ SCH (07:52)
[2021-12-02] MEDS: FINASTERIDE 5 MG TAB PO SCH (07:52)
[2021-12-02] MEDS: METOPROLOL TARTRATE 50 MG TAB PO SCH ×2 (07:52→19:55)
[2021-12-02] MEDS: methylPREDNISolone SOD SUCCI 40 MG/ML 1 ML VIAL IV SCH ×2 (07:53→19:59)
[2021-12-02 08:56] LABS: Basophils # (A) 0.01 X 10*3/uL (0.00-0.10); Basophils % (A) 0.1 %; Eosinophils # (A) 0 X 10*3/uL (0.04-0.35); Eosinophils % (A) 0 %; HCT 35.8 % (39.6-50.0); HGB 11.4 g/dL (13.0-17.0); Immature Grans, Automated 0.5 %; MCH 28.9 pg (27.0-32.0); MCHC 31.8 g/dL (32.0-37.0); MCV 90.6 fL (80.0-97.0); Mean Platelet Volume 10.2 fL (9.5-12.2); Monocytes # (A) 0.44 X 10*3/uL (0.20-1.00); Monocytes % (A) 4.4 %; NRBC Per 100 WBC 0 /100 WBCS (0.0-0.0); Neutrophils # (A) 8.66 X 10*3/uL (1.80-7.70); Platelet Count 260 X 10*3/uL (140-440); RBC 3.95 X 10*6/uL (4.40-5.60); RDW 13.2 % (11.5-14.5); WBC 9.96 X 10*3/uL (4.50-10.00)
[2021-12-02 09:04] LABS: African American GFR (CKD) 83.2 (60.0-200.0); Anion Gap 9.8 mmol/L (10.00-18.00); BUN/Creat Ratio 27.1 Ratio (12.00-20.00); Blood Urea Nitrogen 27.1 mg/dL (9.0-27.0); Carbon Dioxide 29.2 mmol/L (20.0-27.5); Non-African American GFR(CKD) 71.8 (60.0-200.0); Potassium 4.7 mmol/L (3.5-5.5)
[2021-12-02 11:45] LABS: Glucose,Whole Blood 167 mg/dL (70-110)
[2021-12-02 16:37] LABS: Glucose,Whole Blood 193 mg/dL (70-110)
[2021-12-02] MEDS: lisinopriL 10 MG TAB PO SCH (19:55)
[2021-12-02] MEDS: CLOPIDOGREL 75 MG TAB PO SCH (19:55)
[2021-12-02] MEDS: TAMSULOSIN 0.4 MG CAP.ER.24H PO SCH (19:55)
[2021-12-02 21:00] LABS: Glucose,Whole Blood 180 mg/dL (70-110)
[2021-12-02] MEDS: DONEPEZIL 5 MG TAB PO SCH (21:59)
[2021-12-03] MEDS: HYDROcodone/APAP 10-325MG 1 EACH TAB PO PRN (00:27)
[2021-12-03 02:54] VITALS: RESP 16
[2021-12-03] MEDS: IPRATROPIUM-ALBUTEROL 3 ML NEB INHALATION SCH ×4 (03:12→16:06)
[2021-12-03 06:52] LABS: Glucose,Whole Blood 117 mg/dL (70-110)
[2021-12-03] MEDS: INSULIN ASPART (NovoLOG) 100 UNIT/ML VIAL SQ SCH ×3 (07:15→17:03)
[2021-12-03] MEDS: FINASTERIDE 5 MG TAB PO SCH (07:32)
[2021-12-03] MEDS: ENOXAPARIN 40 MG/0.4 ML SYRINGE SQ SCH (07:32)
[2021-12-03] MEDS: METOPROLOL TARTRATE 50 MG TAB PO SCH (07:32)
[2021-12-03] MEDS: AZITHROMYCIN 500 MG TAB PO SCH (07:32)
[2021-12-03] MEDS: guaiFENesin 600 MG TABLET.ER PO SCH ×3 (07:32→17:32)
[2021-12-03] MEDS: GABAPENTIN 400 MG CAP PO SCH ×2 (07:32→15:51)
[2021-12-03] MEDS: BUDESONIDE 1 MG/2 ML NEBU INHALATION SCH (08:42)
[2021-12-03] MEDS: methylPREDNISolone SOD SUCCI 40 MG/ML 1 ML VIAL IV SCH (09:53)
[2021-12-03 11:16] LABS: Glucose,Whole Blood 105 mg/dL (70-110)
--- NOTE | 2021-12-03 15:15 | P.PN ---
Subjective Progress Note Date: 12/02/21 [address] Boss. Lives with his / caregiver. Chronic stable medical conditions include BPH, chronic Evans catheter, osteoarthritis, left below knee amputation, peripheral artery disease. dementia. Normally able get around the house. uses oxygen at night. Patient presents with worsening short of breath. Congested cough. Yellow sputum. Appetite is okay. Has has chills. No change in bowel pattern. Wheezing. Tired. Patient not the best of historians. Has a prosthetic left leg Admitted with pneumonia, COPD exacerbation, hyponatremia. Started on IV ceftriaxone, DuoNeb, steroids, IV fluids Objective - Vital Signs Vital signs: Vital Signs Temp 97.7 F 12/02/21 07:56 Pulse 64 12/02/21 11:21 Resp 18 12/02/21 08:00 BP 192/66 12/02/21 07:56 Pulse Ox 92 L 12/02/21 07:56 FiO2 Intake & Output 12/01/21 12/02/21 12/02/21 18:59 06:59 18:59 Output Total 800 950 Balance -800 -950 Output: Urine 800 950 Other: Voiding Method Indwelling Catheter Indwelling Catheter Indwelling Catheter - Exam EYES: Pupils equal. Conjunctiva normal. HEENT: External appearance of nose and ears normal, oral cavity grossly normal. NECK: JVD not raised; masses not palpable. HEART: First and second heart sounds are normal; no edema. LUNGS: Respiratory rate increased; coarse breath sounds , decreased breath sounds, end expiratory wheeze, congested cough ABDOMEN: Soft, nontender, liver spleen not palpable, no masses palpable. PSYCH: Mentation improving, alert x 3. MUSCULOSKELETAL:No Clubbing/cyanosis;muscles-grossly intact. Left below-knee amputation - Labs CBC & Chem 7: 12/02/21 06:34 12/02/21 06:34 Labs: Abnormal Lab Results - Last 24 Hours (Table) 12/01/21 12/01/21 12/02/21 Range/Units 16:42 21:08 06:34 RBC 3.95 L (4.40-5.60) X 10*6/uL Hgb 11.4 L (13.0-17.0) g/dL Hct 35.8 L (39.6-50.0) % MCHC 31.8 L (32.0-37.0) g/dL Immature Gran # 0.05 H (0.00-0.04) X 10*3/uL Neutrophils # 8.66 H (1.80-7.70) X 10*3/uL Lymphocytes # 0.80 L (0.90-5.00) X 10*3/uL Eosinophils # 0 L (0.04-0.35) X 10*3/uL Sodium (135-145) mmol/L Chloride (96-109) mmol/L Carbon Dioxide (20.0-27.5) mmol/L Anion Gap (10.00-18.00) mmol/L BUN (9.0-27.0) mg/dL BUN/Creatinine Ratio (12.00-20.00) Ratio Glucose (70-110) mg/dL POC Glucose (mg/dL) 128 H 151 H (70-110) mg/dL 12/02/21 12/02/21 12/02/21 Range/Units 06:34 07:02 11:44 RBC (4.40-5.60) X 10*6/uL Hgb (13.0-17.0) g/dL Hct (39.6-50.0) % MCHC (32.0-37.0) g/dL Immature Gran # (0.00-0.04) X 10*3/uL Neutrophils # (1.80-7.70) X 10*3/uL Lymphocytes # (0.90-5.00) X 10*3/uL Eosinophils # (0.04-0.35) X 10*3/uL Sodium 132 L (135-145) mmol/L Chloride 93 L (96-109) mmol/L Carbon Dioxide 29.2 H (20.0-27.5) mmol/L Anion Gap 9.80 L (10.00-18.00) mmol/L BUN 27.1 H (9.0-27.0) mg/dL BUN/Creatinine Ratio 27.10 H (12.00-20.00) Ratio Glucose 134 H (70-110) mg/dL POC Glucose (mg/dL) 156 H 167 H (70-110) mg/dL Microbiology - Last 24 Hours (Table) 11/29/21 20:23 Gram Stain - Final Sputum Sputum Culture - Final Assessment and Plan Assessment: - Right lower lobe Pneumonia suspected gram-negative organism: IV ceftriaxone 1 g every 24 hours, Mucinex. Sputum for Gram stain and culture pending Repeat white count in AM -Acute COPD exacerbation in a current smoker:: Slow to respond DuoNeb every 4 , Pulmicort, IV Solu-Medrol -Acute hyponatremia likely from decreased solid intake , some improvement Encourage oral fluid intake possible component of fluid overload, dose of IV lasix given today -Hyperkalemia, new diagnosis, improved. Kayexalate 45 g. Renal diet. Repeat labs. -Steroid induced hypergylcemia Started on novolog s/s coverage while inpatient -Chronic nicotine dependence cigarette smoker Nicotine patch Education given on importance of cessation, patient states he will continue to smoke as soon as he is discharged -BPH Flomax 0.8 mg by mouth daily at bedtime, Proscar -Bladder outflow structured requiring chronic Evans catheter, being followed by /urologist -Primary osteoarthritis -Left below-knee amputation, with prosthesis At baseline patient able to ambulate -Peripheral arterial disease on Plavix -Chronic hypoxic respiratory failure requiring oxygen at home from underlying COPD 2 L of oxygen at home -moderate cognitive impairment possibly from late onset Alzheimer's dementia Mentation better today able to converse, family at bedside -Right bundle-branch block -Full code Continue oxygen support, DuoNeb, Pulmicort. Sputum Gram stain pending. Give one time dose IV lasix today. PT/OT consultation home with homecare versus subacute rehab. Patient is given prescription for nebulizer on discharge he is requesting one. Procalcitonin level is 0.09, will discontinue IV antibiotics and give short course of oral azithromycin for 3 days. IV steroids decreased to Q12. Continue to encourage cough and deep breathing. Educated on smoking cessation. Repeat labs in AM. Possible discharge in 24 to 48 hours.
[2021-12-03 15:18] VITALS: BP 134/63; TEMP 97.9
[2021-12-03 16:08] VITALS: PULSE 72
[2021-12-03 16:37] LABS: Glucose,Whole Blood 116 mg/dL (70-110)
--- NOTE | 2021-12-03 18:23 | P.DS ---
Providers Date of admission: 11/29/21 00:57 Expected date of discharge: 12/03/21 Attending physician: Angelo Rausch Primary care physician: Bob Boss [place] Hospital Course: This is a [address] Boss. Lives with his / caregiver. Chronic stable medical conditions include BPH, chronic Evans catheter, osteoarthritis, left below knee amputation, peripheral artery disease. dementia. Normally able get around the house. uses oxygen at night. Patient presents with worsening short of breath. Congested cough. Yellow sputum. Appetite is okay. Has has chills. No change in bowel pattern. Wheezing. Tired. Patient not the best of historians. Has a prosthetic left leg Admitted with pneumonia, COPD exacerbation, hyponatremia. Started on IV ceftriaxone, DuoNeb, steroids, IV fluids Past medical history: To include: COPD, CVA, BPH, arthritis, prosthesis left leg, PAD, home oxygen 2 L at night, chronic Evans catheter, Social history: Patient being smoking a pack a day for over 60 years. Lives with his . Rodrigo ochoa. INVESTIGATIONS, reviewed in the clinical context: November 30: White count 19.3 hemoglobin 10.8 sodium 1:30 potassium 5.6 creatinine 0.9 White count 14.8 hemoglobin 12.3 platelets 213 sodium 128 potassium 4.3 BUN 20 creatinine 0.81 EKG tracing personally reviewed by me-sinus rhythm, rate 86, right bundle-branch block Chest x-ray film personally reviewed by me-right basilar infiltrate November 30: Eating better. Some shortness of breath. Cough is sputum present. IV ceftriaxone, DuoNeb, IV Solu-Medrol. 12/01/2021 Patient evaluated today sitting up in chair with family at the bedside. Reports shortness of breath at rest, improved some. No chest pain. No nausea, vomiting, diarrhea. He has some end expiratory wheeze, lungs are tight today. Sodium is also down to 128, blood pressure increasing. Will give a small dose of IV lasix and repeat labs tomorrow. Also decrease steroids to 40 mg Q12. He continues on IV ceftriaxone. Sputum culture pending. Repeat chest xray today showing bibasilar atelectasis without acute cardiopulmonary disease. COPD. Will also order incentive spirometer. Glucose 145, add novolog. Afebrile, heart rate 59, blood pressure 168/50, 93% 3.5 L nasal cannula. 12/03/2021; patient is stable and will be discharged home on 5 more days of oral azithromycin and burst dose of prednisone Patient Condition at Discharge: Fair Plan - Discharge Summary Discharge Rx Participant: No New Discharge Prescriptions: New predniSONE [Deltasone] 40 mg PO DAILY 5 Days #10 tab Azithromycin [Zithromax] 500 mg PO DAILY 5 Days #5 tab Continue Tamsulosin [Flomax] 0.8 mg PO HS Benazepril [Lotensin] 10 mg PO HS Donepezil [Aricept] 5 mg PO HS Clopidogrel Bisulfate [Plavix] 75 mg PO HS HYDROcodone/APAP 10-325MG [[place] 10-325] 1 tab PO Q4H PRN PRN Reason: Pain Budesonide [Pulmicort] 0.5 mg INHALATION RT-BID Gabapentin 800 mg PO QID Metoprolol Tartrate [Lopressor] 50 mg PO BID #60 tab Finasteride [Proscar] 5 mg PO DAILY #30 tab Ipratropium/Albuter 20-100Mcg [Combivent Respimat 20-100Mcg Inhaler] 1 puff INHALATION RT-QID PRN PRN Reason: Shortness Of Breath Albuterol Inhaler [Ventolin Hfa Inhaler] 2 puff INHALATION RT-Q6H PRN PRN Reason: Shortness Of Breath Discharge Medication List Tamsulosin [Flomax] 0.8 mg PO HS 04/02/15 [History] Benazepril [Lotensin] 10 mg PO HS 05/14/19 [History] Donepezil [Aricept] 5 mg PO HS 05/14/19 [History] Clopidogrel Bisulfate [Plavix] 75 mg PO HS 07/17/21 [History] Gabapentin 800 mg PO QID 07/17/21 [History] HYDROcodone/APAP 10-325MG [[place] 10-325] 1 tab PO Q4H PRN 07/17/21 [History] Finasteride [Proscar] 5 mg PO DAILY #30 tab 07/21/21 [Rx] Metoprolol Tartrate [Lopressor] 50 mg PO BID #60 tab 07/21/21 [Rx] Albuterol Inhaler [Ventolin Hfa Inhaler] 2 puff INHALATION RT-Q6H PRN 11/28/21 [History] Budesonide [Pulmicort] 0.5 mg INHALATION RT-BID 11/28/21 [History] Ipratropium/Albuter 20-100Mcg [Combivent Respimat 20-100Mcg Inhaler] 1 puff INHALATION RT-QID PRN 11/28/21 [History] Azithromycin [Zithromax] 500 mg PO DAILY 5 Days #5 tab 12/03/21 [Rx] predniSONE [Deltasone] 40 mg PO DAILY 5 Days #10 tab 12/03/21 [Rx] Follow up Appointment(s)/Referral(s): Bob Boss MD [Primary Care Provider] - 1-2 days [facility], [NON-STAFF] - As Needed [facility] Visiting Nurse, [NON-STAFF] - As Needed Patient Instructions/Handouts: COPD (Chronic Obstructive Pulmonary Disease) (DC) Discharge Disposition: HOME WITH HOME HEALTH SERVICES
== END 2021-12-03 19:17 | disposition home health service (06) | DRG 178 ==
LOC: EC 22:04 → 4SSUR 11-29 00:57
PROVIDERS: ADMIT Hospitalist; ATTEND Hospitalist
DX: J15.6 Pneumonia due to other Gram-negative bacteria (principal); E87.1 Hypo-osmolality and hyponatremia; J96.11 Chronic respiratory failure with hypoxia; F05 Delirium due to known physiological condition; J44.0 Chronic obstructive pulmonary disease with (acute) lower respiratory infection; J44.1 Chronic obstructive pulmonary disease with (acute) exacerbation; J98.11 Atelectasis; G30.1 Alzheimer's disease with late onset; F02.80 Dementia in other diseases classified elsewhere, unspecified severity, without behavioral disturbance, psychotic disturbance, mood disturbance, and anxiety; I73.9 Peripheral vascular disease, unspecified; Z89.512 Acquired absence of left leg below knee; Z28.310 Unvaccinated for COVID-19; E86.0 Dehydration; E87.5 Hyperkalemia; R73.9 Hyperglycemia, unspecified; T38.0X5A Adverse effect of glucocorticoids and synthetic analogues, initial encounter; I45.10 Unspecified right bundle-branch block; N40.0 Benign prostatic hyperplasia without lower urinary tract symptoms; M19.91 Primary osteoarthritis, unspecified site; G47.00 Insomnia, unspecified; K59.00 Constipation, unspecified; F41.9 Anxiety disorder, unspecified; F17.210 Nicotine dependence, cigarettes, uncomplicated; Z71.6 Tobacco abuse counseling; Z79.02 Long term (current) use of antithrombotics/antiplatelets; Z79.899 Other long term (current) drug therapy; Z86.73 Personal history of transient ischemic attack (TIA), and cerebral infarction without residual deficits; Z97.14 Presence of artificial left leg (complete) (partial); Z95.828 Presence of other vascular implants and grafts; Z80.1 Family history of malignant neoplasm of trachea, bronchus and lung; Z82.5 Family history of asthma and other chronic lower respiratory diseases
CPT/HCPCS: 36415; 71045; 71046; 80048; 80053; 83605; 83735; 83880; 84100; 84145; 84484; 85025; 85610; 85730; 87070; 87205; 93005; 94640; 94760; 96374; 99285

== ENCOUNTER 2021-12-06 13:35 | Inpatient (IN) | payer MEDICARE ==
[2021-12-06] MEDS ORDERED: methylPREDNISolone SOD SUCCI 125 MG/2 ML VIAL IV STA (13:41)
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
[2021-12-06 14:09] LABS: Basophils % (A) 0 %; Eosinophils # (A) 0.1 k/uL (0-0.7); Eosinophils % (A) 1 %; HCT 43.2 % (39.0-53.0); HGB 13.7 gm/dL (13.0-17.5); Lymphocytes % (A) 7 %; MCH 29.7 pg (25.0-35.0); MCHC 31.8 g/dL (31.0-37.0); MCV 93.3 fL (80.0-100.0); Mean Platelet Volume 7.2; Monocytes # (A) 0.3 k/uL (0-1.0); Monocytes % (A) 2 %; Neutrophils # (A) 12.7 k/uL (1.3-7.7); Neutrophils % (A) 90 %; Platelet Count 321 k/uL (150-450); RBC 4.63 m/uL (4.30-5.90); RDW 13.1 % (11.5-15.5); WBC 14.1 k/uL (3.8-10.6)
[2021-12-06 14:21] LABS: Potassium 5.1 mmol/L (3.5-5.1)
[2021-12-06 14:22] LABS: Albumin 4.2 g/dL (3.5-5.0); Calcium 9.1 mg/dL (8.4-10.2); Magnesium 1.9 mg/dL (1.6-2.3); Total Bilirubin 0.3 mg/dL (0.2-1.3); Total Protein 7.3 g/dL (6.3-8.2)
[2021-12-06 14:38] LABS: INR 0.9 (<1.2); Partial Thromboplastin Time 26.4 sec (22.0-30.0); Prothrombin Time 9.8 sec (9.0-12.0)
--- NOTE | 2021-12-06 14:44 | XR ---
EXAMINATION TYPE: XR chest 2V DATE OF EXAM: 12/06/2021 COMPARISON: 12/01/2021 TECHNIQUE: PA and lateral views submitted. HISTORY: Shortness of breath FINDINGS: The lungs are clear and there is no pneumothorax, pleural effusion, or focal pneumonia. Bilateral e nlarged pulmonary arteries. Eventration of the right hemidiaphragm. Coarsened interstitium. Degenerat mariana changes of the spine. Hyperinflation suggests COPD. Atherosclerotic change aorta. Nodules overlyi ng the lower lung caruso likely in the basis of nipple shadows. IMPRESSION: 1. COPD correlate for pulmonary arterial hypertension..
[2021-12-06] MEDS ORDERED: NALOXONE 0.4 MG/ML 1 ML VIAL IVP PRN (15:11)
[2021-12-06] MEDS ORDERED: ACETAMINOPHEN TAB 325 MG TAB PO PRN (15:11)
[2021-12-06] MEDS ORDERED: DEXTROSE 50% SYRINGE 50 ML IVP PRN ×2 (15:27)
[2021-12-06] MEDS: IPRATROPIUM-ALBUTEROL 3 ML NEB INHALATION SCH ×2 (15:40→19:18)
[2021-12-06] MEDS: SODIUM CHLORIDE 0.9% 1,000 ML IV SCH (16:00)
--- NOTE | 2021-12-06 17:43 | HP ---
HISTORY AND PHYSICAL CHIEF COMPLAINT: Shortness of breath. HISTORY OF PRESENT ILLNESS: This is a 76-year-old gentleman with a past medical history of multiple medical problems, including COPD, was recently admitted with COPD acute exacerbation. Patient treated and the patient felt well and the patient was discharged home. The patient also apparently had right lower pneumonia also at that time. The patient also has some hyponatremia. After going home, the patient became progressively short of breath and came to [facility] and the patient unable to breathe. The sodium was found to be 126, indicating again hyponatremia. There is no history of fever, rigors, chills at this time. PAST MEDICAL HISTORY: Includes COPD, CVA. MEDICATIONS: Home medications are reviewed include: Prednisone. Dose and rest of medication reviewed. ALLERGIES: None. FAMILY HISTORY: History of lung cancer. SOCIAL HISTORY: History of smoking. REVIEW OF SYSTEMS: 14-point review of systems is negative except as mentioned earlier. PHYSICAL EXAMINATION: Pulse 88, blood pressure 120/65, respirations 20. HEENT: Conjunctivae normal. Neck: No JVD. Cardiovascular: S1, S2 muffled. Respiration: Breath sounds diminished in the bases. Bilateral scattered rhonchi and expiratory wheezing also present. Abdomen: Soft, nontender. Legs no edema. No swelling. Nervous system: No focal deficits. LABS: WBC 14.1, hemoglobin 13.7. ASSESSMENT: 1. Chronic obstructive pulmonary disease acute exacerbation. 2. Increased WBC. 3. Hyponatremia. 4. History of cerebrovascular accident. 5. History of degenerative joint disease. 6. History of chronic obstructive pulmonary disease. RECOMMENDATION: In this 76-year-old gentleman who presented with multiple complex medical issues, we will monitor the patient closely. We will initiate broad-spectrum antibiotics as well as intensive bronchodilators, IV steroids. I would also recommend consultation with Dr. Espinoza. Prognosis guarded because of multiple complex medical issues. Further recommendations to follow. See orders for details. MMODL / IJN: [id number] /
[2021-12-06 18:12] LABS: Glucose,Whole Blood 291 mg/dL (70-110)
[2021-12-06] MEDS: INSULIN ASPART (NovoLOG) 100 UNIT/ML VIAL SQ SCH ×2 (18:21→23:19)
[2021-12-06] MEDS: GABAPENTIN 400 MG CAP PO SCH ×2 (18:22→21:25)
[2021-12-06] MEDS: BUDESONIDE 0.5 MG/2 ML NEBU INHALATION SCH (19:19)
[2021-12-06] MEDS ORDERED: IPRATROPIUM-ALBUTEROL 3 ML NEB INHALATION PRN (20:14)
[2021-12-06] MEDS: METOPROLOL TARTRATE 50 MG TAB PO SCH (21:26)
[2021-12-06] MEDS: TAMSULOSIN 0.4 MG CAP.ER.24H PO SCH (21:26)
[2021-12-06] MEDS: methylPREDNISolone SOD SUCCI 125 MG/2 ML VIAL IV SCH (21:27)
[2021-12-06] MEDS: lisinopriL 10 MG TAB PO SCH (21:27)
[2021-12-06] MEDS: CLOPIDOGREL 75 MG TAB PO SCH (21:27)
[2021-12-06 23:02] LABS: Glucose,Whole Blood 258 mg/dL (70-110)
[2021-12-07] MEDS: DONEPEZIL 5 MG TAB PO SCH ×2 (00:38→21:08)
[2021-12-07] MEDS: methylPREDNISolone SOD SUCCI 125 MG/2 ML VIAL IV SCH ×4 (02:47→21:08)
[2021-12-07 07:47] LABS: Glucose,Whole Blood 157 mg/dL (70-110)
[2021-12-07] MEDS: AZITHROMYCIN 500 MG TAB PO SCH (08:02)
[2021-12-07] MEDS: FINASTERIDE 5 MG TAB PO SCH (08:02)
[2021-12-07] MEDS: GABAPENTIN 400 MG CAP PO SCH ×4 (08:02→21:08)
[2021-12-07] MEDS: METOPROLOL TARTRATE 50 MG TAB PO SCH ×2 (08:03→21:08)
[2021-12-07] MEDS: INSULIN ASPART (NovoLOG) 100 UNIT/ML VIAL SQ SCH ×4 (08:03→21:09)
[2021-12-07] MEDS: IPRATROPIUM-ALBUTEROL 3 ML NEB INHALATION SCH ×4 (08:13→19:19)
[2021-12-07] MEDS: BUDESONIDE 0.5 MG/2 ML NEBU INHALATION SCH ×2 (08:14→19:19)
[2021-12-07 09:26] LABS: ALT 31 U/L (10-49); AST 16 U/L (14-35); African American GFR (CKD) 66.7 (60.0-200.0); Albumin 3.6 g/dL (3.8-4.9); Albumin/Globulin Ratio 1.57 (1.60-3.17); Alkaline Phosphatase 59 U/L (41-126); BUN/Creat Ratio 24.42 Ratio (12.00-20.00); Blood Urea Nitrogen 29.3 mg/dL (9.0-27.0); Calcium 8.7 mg/dL (8.7-10.3); Carbon Dioxide 26.3 mmol/L (20.0-27.5); Chloride 93 mmol/L (96-109); Globulin 2.3 g/dL (1.6-3.3); Glucose 147 mg/dL (70-110); Non-African American GFR(CKD) 57.6 (60.0-200.0); Potassium 5.6 mmol/L (3.5-5.5); Sodium 129 mmol/L (135-145); Total Bilirubin <0.15 mg/dL (0.30-1.20); Total Protein 5.9 g/dL (6.2-8.2)
[2021-12-07 09:36] LABS: Basophils # (A) 0.03 X 10*3/uL (0.00-0.10); Basophils % (A) 0.2 %; Eosinophils # (A) 0 X 10*3/uL (0.04-0.35); Eosinophils % (A) 0 %; HCT 35.6 % (39.6-50.0); HGB 11.6 g/dL (13.0-17.0); Lymphocytes % (A) 7.1 %; MCH 29.5 pg (27.0-32.0); MCHC 32.6 g/dL (32.0-37.0); MCV 90.6 fL (80.0-97.0); Mean Platelet Volume 9.9 fL (9.5-12.2); Monocytes # (A) 0.35 X 10*3/uL (0.20-1.00); Monocytes % (A) 2.3 %; NRBC Per 100 WBC 0 /100 WBCS (0.0-0.0); Neutrophils # (A) 13.82 X 10*3/uL (1.80-7.70); Neutrophils % (A) 89.4 %; Platelet Count 268 X 10*3/uL (140-440); RBC 3.93 X 10*6/uL (4.40-5.60); RDW 13.5 % (11.5-14.5); WBC 15.46 X 10*3/uL (4.50-10.00)
[2021-12-07] MEDS: SODIUM CHLORIDE 0.9% 1,000 ML IV SCH ×2 (10:04→21:09)
[2021-12-07 11:36] LABS: Glucose,Whole Blood 227 mg/dL (70-110)
--- NOTE | 2021-12-07 12:07 | P.PN ---
Subjective This is a pleasant 76 years old male with multiple medical problems including COPD, CVA/TIA, benign prostatic hypertrophy and chronic Evans catheter, chronic hypoxic respiratory failure and ventilator oxygen via nasal cannula. Patient presents with dyspnea thought secondary to acute COPD exacerbation and he states he is still short of breath this morning No ulcers compared from dry cough but denies chest pain. He denies any abdominal or urinary complaints. He has indwelling Evans catheter at home. Patient says that she is eating well and walking well. WBC is 15.4, sodium 126 went up to 129, potassium 5.6. Creatinine 1.2 Objective - Vital Signs Vital signs: Vital Signs Temp 98.8 F 12/07/21 07:49 Pulse 65 12/07/21 08:27 Resp 18 12/07/21 08:27 BP 167/74 12/07/21 07:49 Pulse Ox 98 12/07/21 08:14 FiO2 Intake & Output 12/06/21 12/07/21 12/07/21 18:59 06:59 18:59 Intake Total 1250 240 Output Total 500 Balance 750 240 Weight 117.934 kg 117.934 kg Intake: Intake, IV Titration 700 Amount Sodium Chloride 0.9% 1, 700 000 ml @ 75 mls/hr IV . [id number] [facility] Rx#:[id number] Oral 550 240 Output: Urine 500 Other: # Bowel Movements 0 - Exam GENERAL: The patient is alert and oriented x3, not in any acute distress. Well developed, well nourished. HEENT: Pupils are round and equally reacting to light. EOMI. No scleral icterus. No conjunctival pallor. Normocephalic, atraumatic. No pharyngeal erythema. No thyromegaly. CARDIOVASCULAR: S1 and S2 present. No murmurs, rubs, or gallops. -PULMONARY: Chest is clear to auscultation, no wheezing or crackles. We'll decrease [place] both sides ABDOMEN: Soft, nontender, nondistended, normoactive bowel sounds. No palpable organomegaly. MUSCULOSKELETAL: No joint swelling or deformity. EXTREMITIES: No cyanosis, clubbing, or pedal edema. NEUROLOGICAL: Gross neurological examination did not reveal any focal deficits. SKIN: No rashes. no petechiae. - Labs CBC & Chem 7: 12/07/21 06:17 07/27/22 06:17 Labs: Abnormal Lab Results - Last 24 Hours (Table) 12/06/21 12/06/21 12/06/21 Range/Units 13:48 13:48 13:48 WBC 14.1 H (3.8-10.6) k/uL RBC (4.40-5.60) X 10*6/uL Hgb (13.0-17.0) g/dL Hct (39.6-50.0) % Immature Gran # (0.00-0.04) X 10*3/uL Neutrophils # 12.7 H (1.3-7.7) k/uL Eosinophils # (0.04-0.35) X 10*3/uL Sodium 126 L (137-145) mmol/L Potassium (3.5-5.5) mmol/L Chloride 89 L (98-107) mmol/L Anion Gap (10.00-18.00) mmol/L BUN (9.0-27.0) mg/dL Est GFR (CKD-EPI)NonAf (60.0-200.0) BUN/Creatinine Ratio (12.00-20.00) Ratio Glucose 130 H (74-99) mg/dL POC Glucose (mg/dL) (70-110) mg/dL Hemoglobin A1c 6.1 H (0.0-6.0) % Total Bilirubin (0.30-1.20) mg/dL Total Protein (6.2-8.2) g/dL Albumin (3.8-4.9) g/dL Albumin/Globulin Ratio (1.60-3.17) g/dL 12/06/21 12/06/21 12/07/21 Range/Units 18:11 23:01 06:17 WBC 15.46 H (3.8-10.6) k/uL RBC 3.93 L (4.40-5.60) X 10*6/uL Hgb 11.6 L (13.0-17.0) g/dL Hct 35.6 L (39.6-50.0) % Immature Gran # 0.16 H (0.00-0.04) X 10*3/uL Neutrophils # 13.82 H (1.3-7.7) k/uL Eosinophils # 0 L (0.04-0.35) X 10*3/uL Sodium (137-145) mmol/L Potassium (3.5-5.5) mmol/L Chloride (98-107) mmol/L Anion Gap (10.00-18.00) mmol/L BUN (9.0-27.0) mg/dL Est GFR (CKD-EPI)NonAf (60.0-200.0) BUN/Creatinine Ratio (12.00-20.00) Ratio Glucose (74-99) mg/dL POC Glucose (mg/dL) 291 H 258 H (70-110) mg/dL Hemoglobin A1c (0.0-6.0) % Total Bilirubin (0.30-1.20) mg/dL Total Protein (6.2-8.2) g/dL Albumin (3.8-4.9) g/dL Albumin/Globulin Ratio (1.60-3.17) g/dL 12/07/21 12/07/21 Range/Units 06:17 07:46 WBC (3.8-10.6) k/uL RBC (4.40-5.60) X 10*6/uL Hgb (13.0-17.0) g/dL Hct (39.6-50.0) % Immature Gran # (0.00-0.04) X 10*3/uL Neutrophils # (1.3-7.7) k/uL Eosinophils # (0.04-0.35) X 10*3/uL Sodium 129 L (137-145) mmol/L Potassium 5.6 H (3.5-5.5) mmol/L Chloride 93 L (98-107) mmol/L Anion Gap 9.70 L (10.00-18.00) mmol/L BUN 29.3 H (9.0-27.0) mg/dL Est GFR (CKD-EPI)NonAf 57.6 L (60.0-200.0) BUN/Creatinine Ratio 24.42 H (12.00-20.00) Ratio Glucose 147 H (74-99) mg/dL POC Glucose (mg/dL) 157 H (70-110) mg/dL Hemoglobin A1c (0.0-6.0) % Total Bilirubin <0.15 L (0.30-1.20) mg/dL Total Protein 5.9 L (6.2-8.2) g/dL Albumin 3.6 L (3.8-4.9) g/dL Albumin/Globulin Ratio 1.57 L (1.60-3.17) g/dL Assessment and Plan Assessment: Possible Acute COPD exacerbation, mild. Rule out other causes Acute on chronic hypoxic respiratory failure Hypovolemic hyponatremia History of CVA/TIA History of benign prostatic hypertrophy Chronic Urinary retention status post chronic Evans catheter Plan: This is a pleasant 76 years old male who presents with COPD exacerbation, and hyponatremia Continue with Solu-Medrol, continue Zithromax Continue with normal saline Pulmonary consult Labs and medication were reviewed.. Continue same treatment. Continue with symptomatic treatment. Resume home medication. Monitor lytes and vitals. DVT and GI prophylaxis. Further recommendationsas per clinical course of the patient DVT prophylaxis: Subcutaneous heparin GI Prophylaxis: Pepcid Prognosis is guarded
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
[2021-12-07 16:17] LABS: Glucose,Whole Blood 163 mg/dL (70-110)
[2021-12-07] MEDS: FORMOTEROL FUMARATE 20 MCG/2 ML NEBU INHALATION SCH (19:23)
[2021-12-07 19:55] LABS: Glucose,Whole Blood 376 mg/dL (70-110)
[2021-12-07] MEDS: HEPARIN SODIUM,PORCINE/PF 5,000 UNIT/0.5 ML SYRINGE SQ SCH (21:08)
[2021-12-07] MEDS: lisinopriL 10 MG TAB PO SCH (21:08)
[2021-12-07] MEDS: CLOPIDOGREL 75 MG TAB PO SCH (21:08)
[2021-12-07] MEDS: FAMOTIDINE 20 MG/2 ML VIAL IV SCH (21:09)
[2021-12-07] MEDS: TAMSULOSIN 0.4 MG CAP.ER.24H PO SCH (21:09)
[2021-12-08] MEDS: methylPREDNISolone SOD SUCCI 125 MG/2 ML VIAL IV SCH ×4 (01:22→21:35)
[2021-12-08 06:56] LABS: Glucose,Whole Blood 121 mg/dL (70-110)
[2021-12-08] MEDS: BUDESONIDE 0.5 MG/2 ML NEBU INHALATION SCH ×2 (08:04→19:17)
[2021-12-08] MEDS: IPRATROPIUM-ALBUTEROL 3 ML NEB INHALATION SCH ×4 (08:04→19:17)
[2021-12-08] MEDS: FORMOTEROL FUMARATE 20 MCG/2 ML NEBU INHALATION SCH ×2 (08:04→19:17)
[2021-12-08] MEDS: INSULIN ASPART (NovoLOG) 100 UNIT/ML VIAL SQ SCH ×4 (08:44→21:36)
[2021-12-08] MEDS: FAMOTIDINE 20 MG/2 ML VIAL IV SCH (08:51)
[2021-12-08] MEDS ORDERED: guaiFENesin-DM 100-10MG/5ML 10 ML CUP PO PRN (08:51)
[2021-12-08 09:01] LABS: African American GFR (CKD) 83.2 (60.0-200.0); Anion Gap 6.4 mmol/L (10.00-18.00); BUN/Creat Ratio 25.7 Ratio (12.00-20.00); Blood Urea Nitrogen 25.7 mg/dL (9.0-27.0); Calcium 8.4 mg/dL (8.7-10.3); Carbon Dioxide 26.6 mmol/L (20.0-27.5); Non-African American GFR(CKD) 71.8 (60.0-200.0); Potassium 5.1 mmol/L (3.5-5.5)
[2021-12-08] MEDS: AZITHROMYCIN 500 MG TAB PO SCH (10:43)
[2021-12-08] MEDS: GABAPENTIN 400 MG CAP PO SCH ×4 (10:44→21:31)
[2021-12-08] MEDS: FINASTERIDE 5 MG TAB PO SCH (10:44)
[2021-12-08] MEDS: HEPARIN SODIUM,PORCINE/PF 5,000 UNIT/0.5 ML SYRINGE SQ SCH ×2 (10:46→21:31)
[2021-12-08] MEDS: METOPROLOL TARTRATE 50 MG TAB PO SCH ×2 (10:54→21:31)
[2021-12-08] MEDS: NICOTINE 21MG/24HR PATCH TRANSDERM SCH (10:57)
--- NOTE | 2021-12-08 10:57 | P.PN ---
Subjective Progress Note Date: 12/08/21 76-year-old male patient with past medical history of COPD, on home oxygen at night, nicotine dependence, history of CVA, peripheral arterial disease with a left below the knee amputation, previous stents to the SFA, presented to the emergency department on 12/06/2021 with complaints of shortness of breath. Patient denied any chest pain, no fever or chills. His been having cough with some phlegm production, unsure of the color. Chest x-ray showed COPD, and bilateral enlarged pulmonary arteries, correlate for pulmonary arterial hypertension. EKG shows sinus rhythm and right bundle branch block. Admission blood work showed white blood cell count of 14.1, hemoglobin of 13.7, quite patient profile was within normal limits, sodium was 126, potassium is 5.1, chloride is 89, BUN is 20, creatinine is 1.05. Lactic acid was 1.2, LFTs were within normal limits, troponin was less than 0.012, proBNP was 442. Patient was started on azithromycin, nebulized bronchodilators and IV steroids. The patient is seen today 12/08/2021 in follow-up on the regular medical floor. He is currently sitting up in bed. Awake and alert in no acute distress. Feeling a bit better today compared to yesterday. Not quite back to his baseline. Maintaining O2 saturation in the 90s on 2 L/m per nasal cannula. He continues with a loose nonproductive cough. Sodium 129. Potassium 5.1. Bicarb 27. BUN 26. Creatinine 1.0. Glucose 142. He remains on DuoNeb inhalations, Pulmicort and Perforomist inhalations, IV Solu-Medrol. Empiric antibiotics in the form of azithromycin. NicoDerm patch in place. Heparin for DVT prophylaxis. Objective - Vital Signs Vital signs: Vital Signs Temp 97.6 F 12/08/21 07:26 Pulse 76 12/08/21 08:30 Resp 18 12/08/21 07:40 BP 144/64 12/08/21 07:26 Pulse Ox 97 12/08/21 07:26 FiO2 Intake & Output 12/07/21 12/08/21 12/08/21 18:59 06:59 18:59 Intake Total 1680 Output Total 1000 800 Balance 680 -800 Intake: Oral 1680 Output: Urine 1000 800 Other: Voiding Method Indwelling Catheter Indwelling Catheter Indwelling Catheter - Exam GENERAL EXAM: Alert, pleasant, 76-year-old male patient, on 2 L of oxygen, comfortable in no apparent distress. HEAD: Normocephalic/atraumatic. EYES: Normal reaction of pupils, equal size. Conjunctiva pink, sclera white. NOSE: Clear with pink turbinates. THROAT: No erythema or exudates. NECK: No masses, no JVD, no thyroid enlargement, no adenopathy. CHEST: No chest wall deformity. Symmetrical expansion. LUNGS: Equal air entry with diffuse wheezes, diminished CVS: Regular rate and rhythm, normal S1 and S2, no gallops, no murmurs, no rubs ABDOMEN: Soft, nontender. No hepatosplenomegaly, normal bowel sounds, no guarding or rigidity. EXTREMITIES: No clubbing, no edema, no cyanosis, 2+ pulses and upper and lower extremities. MUSCULOSKELETAL: Muscle strength and tone normal. Left BK amputation SPINE: No scoliosis or deformity SKIN: No rashes CENTRAL NERVOUS SYSTEM: No focal deficits, tone is normal in all 4 extremities. PSYCHIATRIC: Alert and oriented -3. Appropriate affect. Intact judgment and insight. - Labs CBC & Chem 7: 12/07/21 06:17 12/08/21 04:32 Labs: Abnormal Lab Results - Last 24 Hours (Table) 12/07/21 12/07/21 12/07/21 Range/Units 11:35 12:15 16:15 D-Dimer 0.83 H (<0.60) mg/L FEU Sodium (135-145) mmol/L Anion Gap (10.00-18.00) mmol/L BUN/Creatinine Ratio (12.00-20.00) Ratio Glucose (70-110) mg/dL POC Glucose (mg/dL) 227 H 163 H (70-110) mg/dL Calcium (8.7-10.3) mg/dL 12/07/21 12/08/21 12/08/21 Range/Units 19:54 04:32 06:54 D-Dimer (<0.60) mg/L FEU Sodium 129 L (135-145) mmol/L Anion Gap 6.40 L (10.00-18.00) mmol/L BUN/Creatinine Ratio 25.70 H (12.00-20.00) Ratio Glucose 142 H (70-110) mg/dL POC Glucose (mg/dL) 376 H 121 H (70-110) mg/dL Calcium 8.4 L (8.7-10.3) mg/dL Assessment and Plan Assessment: 1 Acute exacerbation of COPD, with purulent tracheobronchitis. Chest x-ray showing COPD, pulmonary arterial hypertension, no acute pulmonary process, COVID-19 PCR, influenza A and B were negative 2 Chronic and ongoing nicotine dependence 3 Chronic hypoxic respiratory failure related to COPD, wears oxygen at night 4 History of peripheral vascular disease with previous left BKA, and stenting of the SFA 5 BPH 6 History of CVA/TIA 7 50-[id number]-ause smoking history Plan: The patient was seen and evaluated Improved but not quite back to baseline Continue current treatment plan Educated regarding the importance of complete smoking cessation NicoDerm patch in place We will continue to follow I have personally seen and examined the patient, performed the documentation and the assessment and plan as written. Number of minutes spent on the visit: 10.
[2021-12-08 11:41] LABS: Glucose,Whole Blood 135 mg/dL (70-110)
--- NOTE | 2021-12-08 16:04 | CDI ---
Documentation Clarification Form Date: 12/08/2021 From: Radha Roy RN, CCDS Admit Date: 12/06/2021 03:12:00 PM Patient Name: Rohit Meek Visit Number: [id number] Discharge Date: ATTENTION: The Clinical Documentation Specialists (CDI) and [facility] Coding Staff appreciate your assistance in clarifying documentation. Please respond to the clarification below the line at the bottom and electronically sign. The CDI & [facility] Coding staff will review the response and follow-up if needed. Please note: Queries are made part of the Legal Health Record. If you have any questions, please contact the author of this message via ITS. Dr. Adam Esipnoza There is documentation of purulent tracheobronchitis]. Additional clarification is requested for the acuity. History/Risk Factors: COPLD, Chronic hypoxic respiratory failure on 4/L NC at home, CVA, Clinical Indicators: 76-year-old male present with history of COPD, on home oxygen at night. He has cough with phlegm production, unsure of the color. Chest x-ray showed COPD, pulmonary arterial hypertension Treatment: Duoneb 0.5 mg-g mg/3 ml Soln QID Pulmicort 0.5 mg inhalation bid Zithromax 500 mg po daily Solu-Medrol 60 mg IV q 6 hours (titrate per orders) Can you please further clarify tracheobronchitis? [ ] Acute or subacute tracheobronchitis [ ] Other, please specify [ ] Unable to determine (Template Last Revised: July 2020) MTDD
[2021-12-08 16:52] LABS: Glucose,Whole Blood 137 mg/dL (70-110)
--- NOTE | 2021-12-08 19:16 | P.PN ---
Subjective This is a pleasant 76 years old male with multiple medical problems including COPD, CVA/TIA, benign prostatic hypertrophy and chronic Evans catheter, chronic hypoxic respiratory failure and ventilator oxygen via nasal cannula. Patient presents with dyspnea thought secondary to acute COPD exacerbation and he states he is still short of breath this morning No ulcers compared from dry cough but denies chest pain. He denies any abdominal or urinary complaints. He has indwelling Evans catheter at home. Patient says that she is eating well and walking well. WBC is 15.4, sodium 126 went up to 129, potassium 5.6. Creatinine 1.2 12/08/2021 still dyspneic , although is improving , he reamins on steroid iv solumedrol for now at 60 mg dose. his oxygen requirement improved up to 2 l/m pt remains hemodynamically stable labs are reviewed Objective - Vital Signs Vital signs: Vital Signs Temp 97.6 F 12/08/21 07:26 Pulse 76 12/08/21 08:30 Resp 18 12/08/21 02:00 BP 144/64 12/08/21 07:26 Pulse Ox 97 12/08/21 07:26 FiO2 Intake & Output 12/07/21 12/08/21 12/08/21 18:59 06:59 18:59 Intake Total 1680 Output Total 1000 800 Balance 680 -800 Intake: Oral 1680 Output: Urine 1000 800 Other: Voiding Method Indwelling Catheter Indwelling Catheter - Exam GENERAL: The patient is alert and oriented x3, not in any acute distress. Well developed, well nourished. HEENT: Pupils are round and equally reacting to light. EOMI. No scleral icterus. No conjunctival pallor. Normocephalic, atraumatic. No pharyngeal erythema. No thyromegaly. CARDIOVASCULAR: S1 and S2 present. No murmurs, rubs, or gallops. -PULMONARY: Chest is clear to auscultation, no wheezing or crackles. We'll decrease [place] both sides ABDOMEN: Soft, nontender, nondistended, normoactive bowel sounds. No palpable organomegaly. MUSCULOSKELETAL: No joint swelling or deformity. EXTREMITIES: No cyanosis, clubbing, or pedal edema. NEUROLOGICAL: Gross neurological examination did not reveal any focal deficits. SKIN: No rashes. no petechiae. - Labs CBC & Chem 7: 12/07/21 06:17 12/08/21 04:32 Labs: Abnormal Lab Results - Last 24 Hours (Table) 12/07/21 12/07/21 12/07/21 Range/Units 11:35 12:15 16:15 D-Dimer 0.83 H (<0.60) mg/L FEU Sodium (135-145) mmol/L Anion Gap (10.00-18.00) mmol/L BUN/Creatinine Ratio (12.00-20.00) Ratio Glucose (70-110) mg/dL POC Glucose (mg/dL) 227 H 163 H (70-110) mg/dL Calcium (8.7-10.3) mg/dL 12/07/21 12/08/21 12/08/21 Range/Units 19:54 04:32 06:54 D-Dimer (<0.60) mg/L FEU Sodium 129 L (135-145) mmol/L Anion Gap 6.40 L (10.00-18.00) mmol/L BUN/Creatinine Ratio 25.70 H (12.00-20.00) Ratio Glucose 142 H (70-110) mg/dL POC Glucose (mg/dL) 376 H 121 H (70-110) mg/dL Calcium 8.4 L (8.7-10.3) mg/dL Assessment and Plan Assessment: Possible Acute COPD exacerbation, mild. Rule out other causes Acute on chronic hypoxic respiratory failure Hypovolemic hyponatremia History of CVA/TIA History of benign prostatic hypertrophy Chronic Urinary retention status post chronic Evans catheter Plan: This is a pleasant 76 years old male who presents with COPD exacerbation, and hyponatremia Continue with Solu-Medrol, continue Zithromax Continue with normal saline Pulmonary consult Labs and medication were reviewed.. Continue same treatment. Continue with symptomatic treatment. Resume home medication. Monitor lytes and vitals. DVT and GI prophylaxis. Further recommendationsas per clinical course of the patient DVT prophylaxis: Subcutaneous heparin GI Prophylaxis: Pepcid Prognosis is guarded
[2021-12-08 19:29] LABS: Glucose,Whole Blood 170 mg/dL (70-110)
[2021-12-08] MEDS: HYDROcodone/APAP 10-325MG 1 EACH TAB PO PRN (21:30)
[2021-12-08] MEDS: TAMSULOSIN 0.4 MG CAP.ER.24H PO SCH (21:31)
[2021-12-08] MEDS: lisinopriL 10 MG TAB PO SCH (21:31)
[2021-12-08] MEDS: CLOPIDOGREL 75 MG TAB PO SCH (21:32)
[2021-12-08] MEDS: FAMOTIDINE 20 MG TAB PO SCH (21:32)
[2021-12-08] MEDS: DONEPEZIL 5 MG TAB PO SCH (21:35)
[2021-12-09] MEDS: HYDROcodone/APAP 10-325MG 1 EACH TAB PO PRN (04:27)
[2021-12-09] MEDS: methylPREDNISolone SOD SUCCI 125 MG/2 ML VIAL IV SCH ×4 (04:29→21:11)
[2021-12-09 07:19] LABS: Glucose,Whole Blood 100 mg/dL (70-110)
[2021-12-09] MEDS: INSULIN ASPART (NovoLOG) 100 UNIT/ML VIAL SQ SCH ×4 (07:45→22:26)
[2021-12-09] MEDS: METOPROLOL TARTRATE 50 MG TAB PO SCH ×2 (08:11→22:25)
[2021-12-09] MEDS: FINASTERIDE 5 MG TAB PO SCH (08:11)
[2021-12-09] MEDS: HEPARIN SODIUM,PORCINE/PF 5,000 UNIT/0.5 ML SYRINGE SQ SCH ×2 (08:11→22:26)
[2021-12-09] MEDS: AZITHROMYCIN 500 MG TAB PO SCH (08:11)
[2021-12-09] MEDS: FAMOTIDINE 20 MG TAB PO SCH ×2 (08:11→22:25)
[2021-12-09] MEDS: NICOTINE 21MG/24HR PATCH TRANSDERM SCH (08:12)
[2021-12-09] MEDS: GABAPENTIN 400 MG CAP PO SCH ×4 (08:12→22:25)
[2021-12-09] MEDS: BUDESONIDE 0.5 MG/2 ML NEBU INHALATION SCH ×2 (08:37→19:12)
[2021-12-09] MEDS: IPRATROPIUM-ALBUTEROL 3 ML NEB INHALATION SCH ×4 (08:37→19:12)
[2021-12-09] MEDS: FORMOTEROL FUMARATE 20 MCG/2 ML NEBU INHALATION SCH ×2 (08:37→21:55)
[2021-12-09 11:28] LABS: Glucose,Whole Blood 154 mg/dL (70-110)
--- NOTE | 2021-12-09 12:00 | P.PN ---
Subjective Progress Note Date: 12/09/21 76-year-old male patient with past medical history of COPD, on home oxygen at night, nicotine dependence, history of CVA, peripheral arterial disease with a left below the knee amputation, previous stents to the SFA, presented to the emergency department on 12/06/2021 with complaints of shortness of breath. Patient denied any chest pain, no fever or chills. His been having cough with some phlegm production, unsure of the color. Chest x-ray showed COPD, and bilateral enlarged pulmonary arteries, correlate for pulmonary arterial hypertension. EKG shows sinus rhythm and right bundle branch block. Admission blood work showed white blood cell count of 14.1, hemoglobin of 13.7, quite patient profile was within normal limits, sodium was 126, potassium is 5.1, chloride is 89, BUN is 20, creatinine is 1.05. Lactic acid was 1.2, LFTs were within normal limits, troponin was less than 0.012, proBNP was 442. Patient was started on azithromycin, nebulized bronchodilators and IV steroids. The patient is seen today 12/08/2021 in follow-up on the regular medical floor. He is currently sitting up in bed. Awake and alert in no acute distress. Feeling a bit better today compared to yesterday. Not quite back to his baseline. Maintaining O2 saturation in the 90s on 2 L/m per nasal cannula. He continues with a loose nonproductive cough. Sodium 129. Potassium 5.1. Bicarb 27. BUN 26. Creatinine 1.0. Glucose 142. He remains on DuoNeb inhalations, Pulmicort and Perforomist inhalations, IV Solu-Medrol. Empiric antibiotics in the form of azithromycin. NicoDerm patch in place. Heparin for DVT prophylaxis. Patient seen today 12/09/2021 in follow-up on the regular medical floor. He is currently sitting up at the bedside. Awake and alert in no acute distress. Feeling better today compared to yesterday. Maintaining O2 saturations in the 90s on 2 L/m per nasal cannula. Afebrile. Blood glucose 154. He has normal saline running at 75 ML's per hour. NicoDerm patch is in place. He is continued on DuoNeb inhalations, Pulmicort and Perforomist inhalations, IV Solu- Medrol. Robitussin as needed. Heparin for prophylaxis. Objective - Vital Signs Vital signs: Vital Signs Temp 98.1 F 12/09/21 08:00 Pulse 67 12/09/21 09:01 Resp 20 12/09/21 08:00 BP 173/74 12/09/21 08:00 Pulse Ox 94 L 12/09/21 08:00 FiO2 Intake & Output 12/08/21 12/09/21 12/09/21 18:59 06:59 18:59 Intake Total 850 375 Output Total 1450 Balance 850 -1075 Intake: IV 375 Invasive Line 2 375 Intake, IV Titration 300 Amount Sodium Chloride 0.9% 1, 300 000 ml @ 75 mls/hr IV . [id number] GORDO Rx#:[id number] Oral 550 Output: Urine 1450 Other: Voiding Method Indwelling Catheter Indwelling Catheter Indwelling Catheter # Voids 4 # Bowel Movements 1 - Exam GENERAL EXAM: Alert, pleasant, 76-year-old male patient, on 2 L of oxygen, comfortable in no apparent distress. HEAD: Normocephalic/atraumatic. EYES: Normal reaction of pupils, equal size. Conjunctiva pink, sclera white. NOSE: Clear with pink turbinates. THROAT: No erythema or exudates. NECK: No masses, no JVD, no thyroid enlargement, no adenopathy. CHEST: No chest wall deformity. Symmetrical expansion. LUNGS: Equal air entry with bilateral end expiratory wheeze, diminished CVS: Regular rate and rhythm, normal S1 and S2, no gallops, no murmurs, no rubs ABDOMEN: Soft, nontender. No hepatosplenomegaly, normal bowel sounds, no guarding or rigidity. EXTREMITIES: No clubbing, no edema, no cyanosis, 2+ pulses and upper and lower extremities. MUSCULOSKELETAL: Muscle strength and tone normal. Left BK amputation SPINE: No scoliosis or deformity SKIN: No rashes CENTRAL NERVOUS SYSTEM: No focal deficits, tone is normal in all 4 extremities. PSYCHIATRIC: Alert and oriented -3. Appropriate affect. Intact judgment and insight. - Labs CBC & Chem 7: 12/07/21 06:17 12/08/21 04:32 Labs: Abnormal Lab Results - Last 24 Hours (Table) 12/08/21 12/08/21 12/09/21 Range/Units 16:50 19:28 11:27 POC Glucose (mg/dL) 137 H 170 H 154 H (70-110) mg/dL Assessment and Plan Assessment: 1 Acute exacerbation of COPD, with acute tracheobronchitis. Chest x-ray showing COPD, pulmonary arterial hypertension, no acute pulmonary process, COVID-19 PCR, influenza A and B were negative 2 Chronic and ongoing nicotine dependence 3 Chronic hypoxic respiratory failure related to COPD, wears oxygen at night 4 History of peripheral vascular disease with previous left BKA, and stenting of the SFA 5 BPH 6 History of CVA/TIA 7 [id number] smoking history Plan: The patient was seen and evaluated Cleared for discharge from pulmonary standpoint Continue his home pulmonary medications Complete prednisone taper Again, educated regarding the importance of complete smoking cessation NicoDerm patch in place Follow-up in our office in 1-2 weeks' I have personally seen and examined the patient, performed the documentation and the assessment and plan as written. Number of minutes spent on the visit: 10.
[2021-12-09 16:38] LABS: Glucose,Whole Blood 182 mg/dL (70-110)
[2021-12-09] MEDS: SODIUM CHLORIDE 0.9% 1,000 ML IV SCH (18:56)
[2021-12-09 20:45] LABS: Glucose,Whole Blood 225 mg/dL (70-110)
[2021-12-09] MEDS: TAMSULOSIN 0.4 MG CAP.ER.24H PO SCH (22:25)
[2021-12-09] MEDS: DONEPEZIL 5 MG TAB PO SCH (22:25)
[2021-12-09] MEDS: lisinopriL 10 MG TAB PO SCH (22:26)
[2021-12-09] MEDS: CLOPIDOGREL 75 MG TAB PO SCH (22:26)
--- NOTE | 2021-12-10 00:04 | P.PN ---
Progress Note - Text Progress Note Date: 12/09/21 Hospital course: This is a [address] Boss. Lives with his / caregiver. 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 dementia. Normally able get around the house. uses oxygen at night. Patient was just discharged from the hospital on December 03 following a diagnosis of pneumonia. Patient now readmitted with COPD exacerbation. Acute tracheobronchitis. Acute hypoxic failure. Patient has continued to smoke cigarettes. December 09: I assumed the care of the patient today. Sitting on the edge of the bed. Some improvement in shortness of breath. Oral intake good. Patient was earlier seen by Dr. Espinoza today. We'll did not feel the patient is appropriate for hospice at this point. I discussed with the patient. He does want to get admitted to the hospital for infections and antibiotics. If need be he wants to get intubated and remained full code. No hospice. I also spoke to patient's family doctor Dr. Boss. We will put palliative care for outpatient. Active Medications Acetaminophen (Acetaminophen Tab 325 Mg Tab) 650 mg PO Q4HR PRN PRN Reason: Mild Pain or Fever > 100.5 Hydrocodone Bitart/Acetaminophen (Hydrocodone/Apap 10-325mg 1 Each Tab) 1 each PO Q4H PRN PRN Reason: Pain Last Admin: 12/09/21 04:27 Dose: 1 each Albuterol/Ipratropium (Ipratropium-Albuterol 3 Ml Neb) 3 ml INHALATION RT-QID [facility] Last Admin: 12/09/21 19:12 Dose: 3 ml Albuterol/Ipratropium (Ipratropium-Albuterol 3 Ml Neb) 3 ml INHALATION RT-Q2H PRN PRN Reason: Shortness Of Breath Or Wheezing Azithromycin (Azithromycin 500 Mg Tab) 500 mg PO DAILY [facility]; Protocol Stop: 12/10/21 09:01 Last Admin: 12/09/21 08:11 Dose: 500 mg Budesonide (Budesonide 0.5 Mg/2 Ml Nebu) 0.5 mg INHALATION RT-BID [facility] Last Admin: 12/09/21 19:12 Dose: 0.5 mg Clopidogrel Bisulfate (Clopidogrel 75 Mg Tab) 75 mg PO HS [facility] Last Admin: 12/09/21 22:26 Dose: 75 mg Dextrose/Water (Dextrose 50% Syringe 50 Ml) 25 ml IVP PER PROTOCOL PRN; Protocol PRN Reason: Hypoglycemia Dextrose/Water (Dextrose 50% Syringe 50 Ml) 50 ml IVP PER PROTOCOL PRN; Protocol PRN Reason: Hypoglycemia Donepezil HCl (Donepezil 5 Mg Tab) 5 mg PO HS [facility] Last Admin: 12/09/21 22:25 Dose: 5 mg Famotidine (Famotidine 20 Mg Tab) 20 mg PO Q12HR [facility] Last Admin: 12/09/21 22:25 Dose: 20 mg Finasteride (Finasteride 5 Mg Tab) 5 mg PO DAILY [facility] Last Admin: 12/09/21 08:11 Dose: 5 mg Formoterol Fumarate (Formoterol Fumarate 20 Mcg/2 Ml Nebu) 20 mcg INHALATION RT-BID [facility] Last Admin: 12/09/21 21:55 Dose: 20 mcg Gabapentin (Gabapentin 400 Mg Cap) 800 mg PO QID [facility] Last Admin: 12/09/21 22:25 Dose: 800 mg Guaifenesin/Dextromethorphan (Guaifenesin-Dm 100-10mg/5ml 10 Ml Cup) 10 ml PO Q6HR PRN PRN Reason: Cough Heparin Sodium (Porcine) (Heparin Sodium,Porcine/Pf 5,000 Unit/0.5 Ml Syringe) 5,000 unit SQ Q12HR [facility] Last Admin: 12/09/21 22:26 Dose: 5,000 unit Sodium Chloride (Saline 0.9%) 1,000 mls @ 75 mls/hr IV .[id number] [facility] Last Admin: 12/09/21 18:56 Dose: Not Given Insulin Aspart (Insulin Aspart (Novolog) 100 Unit/Ml Vial) 0 unit SQ ACHS [facility]; Protocol Last Admin: 12/09/21 22:26 Dose: 4 unit Lisinopril (Lisinopril 10 Mg Tab) 10 mg PO HS [facility] Last Admin: 12/09/21 22:26 Dose: 10 mg Methylprednisolone Sodium Succinate (Methylprednisolone Sod Succi 125 Mg/2 Ml Vial) 60 mg IV Q6H [facility] Last Admin: 12/09/21 21:11 Dose: 60 mg Metoprolol Tartrate (Metoprolol Tartrate 50 Mg Tab) 50 mg PO BID [facility] Last Admin: 12/09/21 22:25 Dose: 50 mg Naloxone HCl (Naloxone 0.4 Mg/Ml 1 Ml Vial) 0.2 mg IVP Q2M PRN PRN Reason: Opioid Reversal Nicotine (Nicotine 21mg/24hr Patch) 1 patch TRANSDERM DAILY [facility] Last Admin: 12/09/21 08:12 Dose: 1 patch Tamsulosin HCl (Tamsulosin 0.4 Mg Cap.Er.24h) 0.8 mg PO HS [facility] Last Admin: 12/09/21 22:25 Dose: 0.8 mg Past medical history: To include: COPD, CVA, BPH, arthritis, prosthesis left leg, PAD, home oxygen 2 L at night, chronic Evans catheter, Social history: Patient being smoking a pack a day for over 60 years. Lives with his . Retired. Physical examination: VITAL SIGNS: 97.9, 53, 17, 1 48 x 54, 96% on 4 L GENERAL: Sitting of the edges of bed, slight short of breath EYES: Pupils equal. Conjunctiva normal. HEENT: External appearance of nose and ears normal, oral cavity grossly normal. NECK: JVD not raised; masses not palpable. HEART: First and second heart sounds are normal; no edema. LUNGS: Respiratory rate increased; coarse breath sounds , decreased breath sounds, mild wheezing. ABDOMEN: Soft, nontender, liver spleen not palpable, no masses palpable. PSYCH: Able to answer questions appropriately MUSCULOSKELETAL:No Clubbing/cyanosis;muscles-grossly intact. Left below-knee amputation, with prosthesis INVESTIGATIONS, reviewed in the clinical context: Sodium 129 potassium 5.1 BUN 25.7 creatinine 1 Chest x-ray, no infiltrates Assessment and plan: -Acute COPD exacerbation in a current smoker: Improving DuoNeb 4 times a day, IV Solu-Medrol -Acute tracheobronchitis Zithromax -Acute hyponatremia likely from increased water intake 6 and restrict -Chronic nicotine dependence cigarette smoker Nicotine patch -BPH Flomax 0.8 mg by mouth daily at bedtime, Proscar -Bladder outflow structured requiring chronic Evans catheter, being followed by /urologist -Primary osteoarthritis -Left below-knee amputation, with prosthesis Able to ambulate -Peripheral arterial disease on Plavix -Chronic hypoxic respiratory failure requiring oxygen at home from underlying COPD 2 L of oxygen at home -moderate cognitive impairment possibly from late onset Alzheimer's dementia -Right bundle-branch block -Full code Care was discussed with the patient. We'll put the patient on fluid restriction. Changed to oral prednisone. Discussed with case managerMerna. Outpatient palliative care. Plan for discharge tomorrow. Advanced care planning: Patient takes his own medical decisions. Family members to help him with the same. Patient wishes to remain full code and was to get intubated. If need be. Wants to get admitted to the hospital for acute exacerbation of COPD/infection. Does not want hospice. Agreeable to palliative care. Outpatient. Also discussed with patient's PCP Dr. Boss. Total time spent for this about 25 minutes
[2021-12-10] MEDS: SODIUM CHLORIDE 0.9% 1,000 ML IV SCH ×3 (01:27→10:06)
[2021-12-10 07:06] LABS: Glucose,Whole Blood 128 mg/dL (70-110)
[2021-12-10] MEDS: INSULIN ASPART (NovoLOG) 100 UNIT/ML VIAL SQ SCH ×2 (07:45→12:28)
[2021-12-10 07:50] VITALS: BP 170/66; RESP 16; TEMP 97.9
[2021-12-10] MEDS: BUDESONIDE 0.5 MG/2 ML NEBU INHALATION SCH (08:21)
[2021-12-10] MEDS: FORMOTEROL FUMARATE 20 MCG/2 ML NEBU INHALATION SCH (08:21)
[2021-12-10] MEDS: IPRATROPIUM-ALBUTEROL 3 ML NEB INHALATION SCH ×2 (08:21→11:48)
[2021-12-10] MEDS ORDERED: predniSONE 20 MG TAB PO SCH (09:00)
[2021-12-10] MEDS: FINASTERIDE 5 MG TAB PO SCH (09:43)
[2021-12-10] MEDS: FAMOTIDINE 20 MG TAB PO SCH (09:43)
[2021-12-10] MEDS: NICOTINE 21MG/24HR PATCH TRANSDERM SCH (09:43)
[2021-12-10] MEDS: METOPROLOL TARTRATE 50 MG TAB PO SCH (09:43)
[2021-12-10] MEDS: HEPARIN SODIUM,PORCINE/PF 5,000 UNIT/0.5 ML SYRINGE SQ SCH (09:43)
[2021-12-10] MEDS: AZITHROMYCIN 500 MG TAB PO SCH (09:43)
[2021-12-10] MEDS: GABAPENTIN 400 MG CAP PO SCH ×2 (09:43→12:36)
[2021-12-10 11:58] VITALS: PULSE 58
[2021-12-10 12:02] LABS: Glucose,Whole Blood 187 mg/dL (70-110)
--- NOTE | 2021-12-10 19:22 | P.DS ---
Providers Date of admission: 12/06/21 15:12 Expected date of discharge: 12/10/21 Attending physician: Angelo Rausch Consults: 12/06/21 15:12 Consult Physician Routine Consulting Provider: Adam Espinoza Consult Reason/Comments: COPD exacerbation with hyponatremia Do you want consulting provider notified?: Yes Primary care physician: Bob Boss [facility] Hospital Course: Hospital course: This is a [address] Boss. Lives with his / caregiver. Chronic stable medical conditions include BPH, chronic Evans catheter, osteoarthritis, left below knee amputation, peripheral artery disease. dementia. Normally able get around the house. uses oxygen at night. Patient was just discharged from the hospital on December 03 following a diagnosis of pneumonia. Patient now readmitted with COPD exacerbation. Acute tracheobronchitis. Acute hypoxic failure. Patient has continued to smoke cigarettes. December 09: I assumed the care of the patient today. Sitting on the edge of the bed. Some improvement in shortness of breath. Oral intake good. Patient was earlier seen by Dr. Espinoza today. We'll did not feel the patient is appropriate for hospice at this point. I discussed with the patient. He does want to get admitted to the hospital for infections and antibiotics. If need be he wants to get intubated and remained full code. No hospice. I also spoke to patient's family doctor Dr. Boss. We will put palliative care for outpatient. December 10: Breathing stable. Discussed with the patient. Counseled about smoking. Prednisone taper. Follow-up with PCP. Pulmonary. Discussion and discharge planning more than 35 minutes Past medical history: To include: COPD, CVA, BPH, arthritis, prosthesis left leg, PAD, home oxygen 2 L at night, chronic Evans catheter, Social history: Patient being smoking a pack a day for over 60 years. Lives with his . Retired. Physical examination: VITAL SIGNS: 97.9, 50, 16, 168/64, 94% on 2 L GENERAL: Laying in bed, awake EYES: Pupils equal. Conjunctiva normal. HEENT: External appearance of nose and ears normal, oral cavity grossly normal. NECK: JVD not raised; masses not palpable. HEART: First and second heart sounds are normal; no edema. LUNGS: Respiratory rate increased; coarse breath sounds , decreased breath sounds, ABDOMEN: Soft, nontender, liver spleen not palpable, no masses palpable. PSYCH: Able to answer questions appropriately MUSCULOSKELETAL:No Clubbing/cyanosis;muscles-grossly intact. Left below-knee amputation, with prosthesis INVESTIGATIONS, reviewed in the clinical context: Sodium 129 potassium 5.1 BUN 25.7 creatinine 1 Chest x-ray, no infiltrates Assessment and plan: -Acute COPD exacerbation in a current smoker: Improving DuoNeb 4 times a day, IV Solu-Medrol. DC on prednisone taper -Acute tracheobronchitis Zithromax -Acute hyponatremia likely from increased water intake Fluid restrict -Chronic nicotine dependence cigarette smoker Nicotine patch -BPH Flomax 0.8 mg by mouth daily at bedtime, Proscar -Bladder outflow structured requiring chronic Evans catheter, being followed by /urologist -Primary osteoarthritis -Left below-knee amputation, with prosthesis Able to ambulate -Peripheral arterial disease on Plavix -Chronic hypoxic respiratory failure requiring oxygen at home from underlying COPD 2 L of oxygen at home -moderate cognitive impairment possibly from late onset Alzheimer's dementia -Right bundle-branch block -Full code Disposition: Home Plan - Discharge Summary Discharge Rx Participant: No New Discharge Prescriptions: New Famotidine [Pepcid] 20 mg PO Q12HR #60 tab guaiFENesin-DM 100-10MG/5ML [Robitussin DM] 10 ml PO Q6HR PRN ml PRN Reason: Cough Nicotine 21Mg/24Hr Patch [Habitrol] 1 patch TRANSDERM DAILY #14 patch predniSONE 10 mg PO DAILY #30 tab Continue Tamsulosin [Flomax] 0.8 mg PO HS Benazepril [Lotensin] 10 mg PO HS Donepezil [Aricept] 5 mg PO HS Clopidogrel Bisulfate [Plavix] 75 mg PO HS HYDROcodone/APAP 10-325MG [[place] 10-325] 1 tab PO Q4H PRN PRN Reason: Pain Budesonide [Pulmicort] 0.5 mg INHALATION RT-BID Metoprolol Tartrate [Lopressor] 50 mg PO BID #60 tab Finasteride [Proscar] 5 mg PO DAILY #30 tab Albuterol Inhaler [Ventolin Hfa Inhaler] 2 puff INHALATION RT-Q6H PRN PRN Reason: Shortness Of Breath Azithromycin [Zithromax] 500 mg PO DAILY 5 Days #5 tab Changed Ipratropium/Albuter 20-100Mcg [Combivent Respimat 20-100Mcg Inhaler] 1 puff INHALATION TID #90 each Gabapentin 800 mg PO TID #0 Discontinued predniSONE [Deltasone] 40 mg PO DAILY 5 Days #10 tab Discharge Medication List Tamsulosin [Flomax] 0.8 mg PO HS 04/02/15 [History] Benazepril [Lotensin] 10 mg PO HS 05/14/19 [History] Donepezil [Aricept] 5 mg PO HS 05/14/19 [History] Clopidogrel Bisulfate [Plavix] 75 mg PO HS 07/17/21 [History] HYDROcodone/APAP 10-325MG [[place] 10-325] 1 tab PO Q4H PRN 07/17/21 [History] Finasteride [Proscar] 5 mg PO DAILY #30 tab 07/21/21 [Rx] Metoprolol Tartrate [Lopressor] 50 mg PO BID #60 tab 07/21/21 [Rx] Albuterol Inhaler [Ventolin Hfa Inhaler] 2 puff INHALATION RT-Q6H PRN 11/28/21 [History] Budesonide [Pulmicort] 0.5 mg INHALATION RT-BID 11/28/21 [History] Azithromycin [Zithromax] 500 mg PO DAILY 5 Days #5 tab 12/03/21 [Rx] Famotidine [Pepcid] 20 mg PO Q12HR #60 tab 12/10/21 [Rx] Gabapentin 800 mg PO TID #0 12/10/21 [Rx] Ipratropium/Albuter 20-100Mcg [Combivent Respimat 20-100Mcg Inhaler] 1 puff INHALATION TID #90 each 12/10/21 [Rx] Nicotine 21Mg/24Hr Patch [Habitrol] 1 patch TRANSDERM DAILY #14 patch 12/10/21 [Rx] guaiFENesin-DM 100-10MG/5ML [Robitussin DM] 10 ml PO Q6HR PRN ml 12/10/21 [Rx] predniSONE 10 mg PO DAILY #30 tab 12/10/21 [Rx] Follow up Appointment(s)/Referral(s): Bob Boss MD [Primary Care Provider] - 1-2 days Care,[facility] [NON-STAFF] - As Needed [facility] Vis[facility] Nurse, [NON-STAFF] - 1-2 Days Patient Instructions/Handouts: COPD (Chronic Obstructive Pulmonary Disease) ( DC) Discharge Disposition: HOME WITH HOME HEALTH SERVICES
== END 2021-12-10 14:25 | disposition home health service (06) | DRG 190 ==
LOC: EC 13:35 → 4SSUR 15:12
PROVIDERS: ADMIT Hospitalist; ATTEND Hospitalist
PROC: 05HY33Z Insertion of Infusion Device into Upper Vein, Percutaneous Approach (ICD-10-PCS; principal; 2021-12-08)
DX: J44.0 Chronic obstructive pulmonary disease with (acute) lower respiratory infection (principal); J96.21 Acute and chronic respiratory failure with hypoxia; E87.1 Hypo-osmolality and hyponatremia; I27.21 Secondary pulmonary arterial hypertension; G30.1 Alzheimer's disease with late onset; F02.80 Dementia in other diseases classified elsewhere, unspecified severity, without behavioral disturbance, psychotic disturbance, mood disturbance, and anxiety; J44.1 Chronic obstructive pulmonary disease with (acute) exacerbation; I73.9 Peripheral vascular disease, unspecified; Z89.512 Acquired absence of left leg below knee; Z28.310 Unvaccinated for COVID-19; N40.1 Benign prostatic hyperplasia with lower urinary tract symptoms; J20.9 Acute bronchitis, unspecified; E86.1 Hypovolemia; M19.91 Primary osteoarthritis, unspecified site; I45.10 Unspecified right bundle-branch block; F17.210 Nicotine dependence, cigarettes, uncomplicated; Z71.6 Tobacco abuse counseling; R33.8 Other retention of urine; Z99.81 Dependence on supplemental oxygen; Z79.02 Long term (current) use of antithrombotics/antiplatelets; Z79.51 Long term (current) use of inhaled steroids; Z79.899 Other long term (current) drug therapy; Z87.01 Personal history of pneumonia (recurrent); Z86.73 Personal history of transient ischemic attack (TIA), and cerebral infarction without residual deficits; Z80.1 Family history of malignant neoplasm of trachea, bronchus and lung; Z82.5 Family history of asthma and other chronic lower respiratory diseases
CPT/HCPCS: 36415; 71046; 80048; 80053; 83036; 83605; 83735; 83880; 84484; 85025; 85379; 85610; 85730; 93005; 94640; 94760; 96361; 96374; 96376; 99285

== ENCOUNTER 2022-05-24 22:01 | Inpatient (IN) | payer MEDICARE ==
[2022-05-24] MEDS ORDERED: IPRATROPIUM-ALBUTEROL 3 ML NEB INHALATION STA (22:41)
[2022-05-24] MEDS ORDERED: methylPREDNISolone SOD SUCCI 125 MG/2 ML VIAL IV STA (22:41)
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
[2022-05-24 23:34] LABS: Basophils % (A) 0 %; Eosinophils # (A) 0.1 k/uL (0-0.7); Eosinophils % (A) 2 %; HGB 11.5 gm/dL (13.0-17.5); Lymphocytes # (A) 1.5 k/uL (1.0-4.8); Lymphocytes % (A) 25 %; MCH 29.9 pg (25.0-35.0); MCHC 32.9 g/dL (31.0-37.0); MCV 90.8 fL (80.0-100.0); Mean Platelet Volume 7.8; Monocytes # (A) 0.4 k/uL (0-1.0); Monocytes % (A) 7 %; Neutrophils # (A) 3.8 k/uL (1.3-7.7); Neutrophils % (A) 63 %; Platelet Count 162 k/uL (150-450); RBC 3.85 m/uL (4.30-5.90); RDW 12.9 % (11.5-15.5)
[2022-05-24 23:44] LABS: Partial Thromboplastin Time 30.2 sec (22.0-30.0); Prothrombin Time 10.2 sec (9.0-12.0)
[2022-05-24 23:48] LABS: Albumin 3.9 g/dL (3.5-5.0); Calcium 8.6 mg/dL (8.4-10.2); Total Bilirubin 0.3 mg/dL (0.2-1.3); Total Protein 6.6 g/dL (6.3-8.2)
--- NOTE | 2022-05-25 00:18 | XR ---
EXAMINATION TYPE: XR chest 2V DATE OF EXAM: 05/25/2022 COMPARISON: 12/06/2021 HISTORY: Difficulty breathing TECHNIQUE: 2 views FINDINGS: There is no heart failure nor confluent pneumonic infiltrate. Costophrenic angles are clear . There are chest leads. The bony thorax is intact. Heart size is normal. IMPRESSION: No active cardiopulmonary disease. No change.
[2022-05-25] MEDS ORDERED: NALOXONE 0.4 MG/ML 1 ML VIAL IVP PRN (00:46)
[2022-05-25] MEDS ORDERED: IPRATROPIUM-ALBUTEROL 3 ML NEB INHALATION PRN (00:46)
[2022-05-25] MEDS: IPRATROPIUM-ALBUTEROL 3 ML NEB INHALATION SCH ×6 (07:40→23:41)
[2022-05-25] MEDS ORDERED: HYDROcodone/APAP 10-325MG 1 EACH TAB PO PRN (10:33)
[2022-05-25] MEDS: METOPROLOL TARTRATE 50 MG TAB PO SCH ×2 (10:47→21:18)
[2022-05-25] MEDS ORDERED: ALPRAZolam 0.25 MG TAB PO PRN (12:32)
[2022-05-25] MEDS ORDERED: LACTULOSE 20 GM/30 ML CUP PO PRN (12:32)
[2022-05-25] MEDS ORDERED: CALCIUM CARBONATE 500 MG CHEWABLE PO PRN (12:32)
[2022-05-25] MEDS ORDERED: ACETAMINOPHEN TAB 325 MG TAB PO PRN (12:32)
[2022-05-25] MEDS ORDERED: ONDANSETRON 4 MG/2 ML VIAL IVP PRN (12:32)
[2022-05-25] MEDS ORDERED: TEMAZEPAM 15 MG CAP PO PRN (12:32)
[2022-05-25] MEDS: GABAPENTIN 400 MG CAP PO SCH ×3 (13:14→21:19)
[2022-05-25] MEDS: methylPREDNISolone SOD SUCCI 40 MG/ML 1 ML VIAL IV SCH (13:14)
[2022-05-25] MEDS: NICOTINE 14MG/24HR PATCH TRANSDERM SCH (13:14)
[2022-05-25] MEDS: ENOXAPARIN 40 MG/0.4 ML SYRINGE SQ SCH (13:14)
[2022-05-25] MEDS: FORMOTEROL FUMARATE 20 MCG/2 ML NEBU INHALATION SCH ×2 (15:31→20:00)
[2022-05-25] MEDS: BUDESONIDE 1 MG/2 ML NEBU INHALATION SCH ×2 (15:31→20:00)
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
[2022-05-25] MEDS: TAMSULOSIN 0.4 MG CAP.ER.24H PO SCH (21:18)
[2022-05-25] MEDS: DOXYCYCLINE 100 MG CAP PO SCH (21:18)
[2022-05-25] MEDS: CLOPIDOGREL 75 MG TAB PO SCH (21:19)
[2022-05-25] MEDS: lisinopriL 10 MG TAB PO SCH (21:19)
[2022-05-25] MEDS: DONEPEZIL 5 MG TAB PO SCH (21:19)
[2022-05-26] MEDS: methylPREDNISolone SOD SUCCI 40 MG/ML 1 ML VIAL IV SCH ×3 (00:46→17:46)
[2022-05-26] MEDS: IPRATROPIUM-ALBUTEROL 3 ML NEB INHALATION SCH ×5 (04:21→19:21)
[2022-05-26] MEDS: FORMOTEROL FUMARATE 20 MCG/2 ML NEBU INHALATION SCH ×2 (07:17→19:20)
[2022-05-26] MEDS: BUDESONIDE 1 MG/2 ML NEBU INHALATION SCH ×2 (07:17→19:20)
[2022-05-26] MEDS: NICOTINE 14MG/24HR PATCH TRANSDERM SCH (09:04)
[2022-05-26] MEDS: ENOXAPARIN 40 MG/0.4 ML SYRINGE SQ SCH (09:05)
[2022-05-26] MEDS: METOPROLOL TARTRATE 50 MG TAB PO SCH ×2 (09:05→20:28)
[2022-05-26] MEDS: DOXYCYCLINE 100 MG CAP PO SCH ×2 (09:05→20:28)
[2022-05-26] MEDS: GABAPENTIN 400 MG CAP PO SCH ×4 (09:12→20:28)
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
--- NOTE | 2022-05-26 14:14 | P.PN ---
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 Lives with his / caregiver. Chronic stable medical conditions include BPH, chronic Evans catheter, osteoarthritis, left below knee amputation, peripheral artery disease. dementia. Normally able get around the house. Home oxygen 2 L Patient continues smoke half a pack a day. Increase in the short of breath for over a day. Cough. Sputum is production. Decreased appetite. Chills. No change in bowel pattern. Wheezing. Admitted with acute COPD exacerbation, acute tracheal bronchitis. Started on DuoNeb, Solu-Medrol, doxycycline. 05/26/2022: Remain short of breath. Wheezing. Some cough. Eating fair. In bed. Active Medications Acetaminophen (Acetaminophen Tab 325 Mg Tab) 650 mg PO Q6HR PRN PRN Reason: Mild Pain or Fever > 100.5 Hydrocodone Bitart/Acetaminophen (Hydrocodone/Apap 10-325mg 1 Each Tab) 1 each PO Q4H PRN PRN Reason: Pain Last Admin: 05/26/22 10:16 Dose: 1 each Albuterol/Ipratropium (Ipratropium-Albuterol 3 Ml Neb) 3 ml INHALATION RT-Q2H PRN PRN Reason: Shortness Of Breath Or Wheezing Last Admin: 05/25/22 03:15 Dose: 3 ml Albuterol/Ipratropium (Ipratropium-Albuterol 3 Ml Neb) 3 ml INHALATION Q4H [place] Last Admin: 05/26/22 11:03 Dose: 3 ml Alprazolam (Alprazolam 0.25 Mg Tab) 0.25 mg PO Q6HR PRN PRN Reason: Anxiety Budesonide (Budesonide 1 Mg/2 Ml Nebu) 1 mg INHALATION RT-BID [facility] Last Admin: 05/26/22 07:17 Dose: 1 mg Calcium Carbonate/Glycine (Calcium Carbonate 500 Mg Chewable) 1,000 mg PO Q4HR PRN PRN Reason: Dyspepsia Clopidogrel Bisulfate (Clopidogrel 75 Mg Tab) 75 mg PO [facility] Last Admin: 05/25/22 21:19 Dose: 75 mg Donepezil HCl (Donepezil 5 Mg Tab) 5 mg PO [facility] Last Admin: 05/25/22 21:19 Dose: 5 mg Doxycycline Monohydrate (Doxycycline 100 Mg Cap) [address] [facility]; Protocol Last Admin: 05/26/22 09:05 Dose: 100 mg Enoxaparin Sodium (Enoxaparin 40 Mg/0.4 Ml Syringe) [address] [facility] Last Admin: 05/26/22 09:05 Dose: 40 mg Formoterol Fumarate (Formoterol Fumarate 20 Mcg/2 Ml Nebu) 20 mcg INHALATION RT-BID [facility] Last Admin: 05/26/22 07:17 Dose: 20 mcg Gabapentin (Gabapentin 400 Mg Cap) [address] [facility] Last Admin: 05/26/22 09:12 Dose: 800 mg Lactulose (Lactulose 20 Gm/30 Ml Cup) 20 gm PO DAILY PRN PRN Reason: Constipation Lisinopril (Lisinopril 10 Mg Tab) 10 mg PO [facility] Last Admin: 05/25/22 21:19 Dose: 10 mg Methylprednisolone Sodium Succinate (Methylprednisolone Sod Succi 40 Mg/Ml 1 Ml Vial) [address] [facility] Last Admin: 05/26/22 09:04 Dose: 40 mg Metoprolol Tartrate (Metoprolol Tartrate 50 Mg Tab) [address] [facility] Last Admin: 05/26/22 09:05 Dose: 50 mg Naloxone HCl (Naloxone 0.4 Mg/Ml 1 Ml Vial) 0.2 mg IVP Q2M PRN PRN Reason: Opioid Reversal Nicotine (Nicotine 14mg/24hr Patch) [address] [facility] Last Admin: 05/26/22 09:04 Dose: 1 patch Ondansetron HCl (Ondansetron 4 Mg/2 Ml Vial) 4 mg IVP Q8HR PRN PRN Reason: Nausea And Vomiting Tamsulosin HCl (Tamsulosin 0.4 Mg Cap.Er.24h) 0.8 mg PO [facility] Last Admin: 05/25/22 21:18 Dose: 0.8 mg Temazepam (Temazepam 15 Mg Cap) 15 mg PO HS PRN PRN Reason: Insomnia Past medical history: To include: COPD, CVA, BPH, arthritis, prosthesis left leg, PAD, home oxygen 2 L t, chronic Evans catheter, Social history: Patient being smoking a pack a day for over 60 years, currently one half a pack a day. Lives with his . Retired. Physical examination: VITAL SIGNS: 98, 60, 18, 140/67, 91% on 2 L GENERAL: Laying in bed, short of breath tired EYES: Pupils equal. Conjunctiva normal. HEENT: External appearance of nose and ears normal, oral cavity grossly normal. NECK: JVD not raised; masses not palpable. HEART: First and second heart sounds are normal; no edema. LUNGS: Respiratory rate increased; decreased breath sounds, round expiration wheezing. ABDOMEN: Soft, nontender, liver spleen not palpable, no masses palpable. PSYCH: Alert and oriented x3; mood and affect anxious. MUSCULOSKELETAL:No Clubbing/cyanosis;muscles-grossly intact INVESTIGATIONS, reviewed in the clinical context: White count 6 hemoglobin 11.5 platelets 162 sodium 131 creatinine 0.95 Influenza type A/b/RSV/COVID-19: Not detected EKG tracing personally reviewed by me-right bundle-branch block. Sinus rhythm 67. Chest x-ray film personally reviewed by me-questionable infiltrate Assessment and plan: -Acute COPD exacerbation in a current smoker: Slow to respond DuoNeb every 4,, IV Solu-Medrol. Nebulized Perforomist, Pulmicort -Acute tracheobronchitis. Doxycycline -Acute hyponatremia likely from increased water intake Fluid restrict -Chronic nicotine dependence cigarette smoker Nicotine patch 14 -BPH Flomax 0.8 mg by mouth daily at bedtime, -Bladder outflow structured requiring chronic Evans catheter, being followed by /urologist -Primary osteoarthritis -Left below-knee amputation, with prosthesis Able to ambulate -Peripheral arterial disease on Plavix -Chronic hypoxic respiratory failure requiring oxygen at home from underlying COPD 2 L of oxygen at home -moderate cognitive impairment possibly from late onset Alzheimer's dementia -Right bundle-branch block -Full code Continue with DuoNeb, nebulized bronchodilators, Perforomist, IV Solu-Medrol, discussed with patient. Have the patient sit up in a chair.
[2022-05-26] MEDS: BENZOCAINE/MENTHOL LOZENG 1 EACH LOZENGE MUCOUS MEM PRN ×2 (17:51→23:46)
[2022-05-26] MEDS: DONEPEZIL 5 MG TAB PO SCH (20:28)
[2022-05-26] MEDS: lisinopriL 10 MG TAB PO SCH (20:28)
[2022-05-26] MEDS: TAMSULOSIN 0.4 MG CAP.ER.24H PO SCH (20:28)
[2022-05-26] MEDS: CLOPIDOGREL 75 MG TAB PO SCH (20:28)
[2022-05-27] MEDS: methylPREDNISolone SOD SUCCI 40 MG/ML 1 ML VIAL IV SCH ×2 (00:35→08:20)
[2022-05-27] MEDS: IPRATROPIUM-ALBUTEROL 3 ML NEB INHALATION SCH ×7 (01:28→23:50)
[2022-05-27] MEDS: BUDESONIDE 1 MG/2 ML NEBU INHALATION SCH ×2 (07:15→19:26)
[2022-05-27] MEDS: FORMOTEROL FUMARATE 20 MCG/2 ML NEBU INHALATION SCH ×2 (07:15→19:26)
[2022-05-27 07:38] LABS: African American GFR (CKD) 88 (>60 ml/min/1.73 sqM); Anion Gap 6 mmol/L; Blood Urea Nitrogen 26 mg/dL (9-20); Calcium 8.8 mg/dL (8.4-10.2); Carbon Dioxide 29 mmol/L (22-30); Chloride 94 mmol/L (98-107); Glucose 140 mg/dL (74-99); Non-African American GFR(CKD) 76 (>60 ml/min/1.73 sqM); Potassium 4.6 mmol/L (3.5-5.1); Sodium 129 mmol/L (137-145)
[2022-05-27] MEDS: GABAPENTIN 400 MG CAP PO SCH ×4 (08:20→21:06)
[2022-05-27] MEDS: METOPROLOL TARTRATE 50 MG TAB PO SCH ×2 (08:20→21:07)
[2022-05-27] MEDS: DOXYCYCLINE 100 MG CAP PO SCH ×2 (08:20→21:07)
[2022-05-27] MEDS: ENOXAPARIN 40 MG/0.4 ML SYRINGE SQ SCH (08:20)
[2022-05-27] MEDS: NICOTINE 14MG/24HR PATCH TRANSDERM SCH (08:20)
--- NOTE | 2022-05-27 11:03 | P.PN ---
Subjective Progress Note Date: 05/27/22 I'm seeing this patient today, 05/26/2022, in consultation for acute COPD exacerbation. Patient has been short of breath for approximately 1 day with associated productive cough and green sputum. Patient denies fevers or chills, chest pain, hemoptysis. patient apparently was feeling short of breath, and called EMS. Patient did report improvement in symptoms after DuoNeb inhalation. He's currently sitting up in bed, on 3 L nasal cannula, in no acute distress. Patient has a medical history of COPD, 4 L home oxygen use, current smoker, CVA, peripheral arterial disease, left below the knee", previous stenting to the SFA. He was also recently admitted November 2021 for similar symptoms. Chest x-ray from today showed no active cardiopulmonary process. Sputum cultures were sent and are pending. Afebrile. Patient's CBC does not show any leukocytosis with a WBC count of 6, hemoglobin 11.5, hematocrit 35, platelets 162,000. Patient's BMP was also unremarkable with a sodium 131, potassium 5, chloride 96, serum CO2 33, BUN 16, creatinine 0.95, glucose 110. Patient was negative for influenza, RSV, coronavirus. He is maintained on DuoNeb inhalation, budesonide inhalation, formoterol inhalation, and IV Solu-Medrol. Many attempts at smoking cessation have been attempted, and patient has a nicotine patch on. Vital signs remain stable. The patient is seen today 05/27/2022 in follow-up on the regular medical floor. He is currently sitting up in bed. Awake and alert in no acute distress. Breathing easier today compared to yesterday.He is maintaining good O2 saturations in the 90s on 3 L/m per nasal cannula. He is afebrile. Hemodynamically stable. Sputum culture pending. sodium 129. Potassium 4.6. Chloride 94. BUN 26. Creatinine 0.95. Glucose 140. He is continued on DuoNeb inhalations, Pulmicort and Perforomist ablations, IV Cymetra. Antibiotics in the form of doxycycline. Objective - Vital Signs Vital signs: Vital Signs Temp 98.0 F 05/27/22 08:16 Pulse 80 05/27/22 08:16 Resp 20 05/27/22 08:20 BP 144/66 05/27/22 08:16 Pulse Ox 91 L 05/27/22 08:16 FiO2 Intake & Output 05/26/22 05/27/22 05/27/22 18:59 06:59 18:59 Intake Total 717 180 Output Total 600 1300 Balance 117 -1300 180 Intake: Oral 717 180 Output: Urine 600 1300 Emesis 0 Other: Voiding Method Indwelling Catheter Indwelling Catheter # Bowel Movements 1 - Exam GENERAL EXAM: Alert, 77-year-old male patient, on 3 L nasal cannula, comfortable in no apparent distress. HEAD: Normocephalic. EYES: Normal reaction of pupils, equal size. NOSE: Clear with pink turbinates. THROAT: No erythema or exudates. NECK: No masses, no JVD. CHEST: No chest wall deformity. LUNGS: Equal air entry with bilateral end expiratory wheeze, diminished. CVS: S1 and S2 normal with no audible murmur, regular rhythm. ABDOMEN: No hepatosplenomegaly, normal bowel sounds, no guarding or rigidity. SPINE: No scoliosis or deformity SKIN: No rashes CENTRAL NERVOUS SYSTEM: No focal deficits, tone is normal in all 4 extremities. EXTREMITIES: There is no peripheral edema. No clubbing, no cyanosis. Peripheral pulses are intact. - Labs CBC & Chem 7: 05/24/22 23:05 05/27/22 07:11 Labs: Abnormal Lab Results - Last 24 Hours (Table) 05/27/22 Range/Units 07:11 Sodium 129 L (137-145) mmol/L Chloride 94 L (98-107) mmol/L BUN 26 H (9-20) mg/dL Glucose 140 H (74-99) mg/dL Microbiology - Last 24 Hours (Table) 05/25/22 23:49 Gram Stain - Preliminary Sputum Sputum Culture - Preliminary Assessment and Plan Assessment: Acute COPD exacerbation Acute on chronic hypoxic respiratory failure secondary to above. Maintained on 4 liters nasal cannula at home and he is currently only requiring 3 L nasal cannula Acute tracheobronchitis. Covered on doxycycline Current smoker with chronic nicotine dependence Mild acute hyponatremia Bladder outflow structured requiring chronic Evans catheter, being followed by urology Osteoarthritis Peripheral arterial disease Oobesity Mild dementia History of Left below-knee amputation, with prosthesis plan: The patient was seen and evaluated Medications and labs reviewed Stable for discharge from the pulmonary standpoint Transitioned to prednisone taper starting at 40 mg daily for 4 days Complete 7 days of doxycycline Continue his home oxygen and pulmonary medications Again educated regarding the importance of complete smoking cessation NicoDerm patch in place Follow-up in our office in 1 week I have personally seen and examined the patient, performed the documentation and the assessment and plan as written. Number of minutes spent on the visit: 20.
--- NOTE | 2022-05-27 13:25 | P.PN ---
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 Lives with his / caregiver. Chronic stable medical conditions include BPH, chronic Evans catheter, osteoarthritis, left below knee amputation, peripheral artery disease. dementia. Normally able get around the house. Home oxygen 2 L Patient continues smoke half a pack a day. Increase in the short of breath for over a day. Cough. Sputum is production. Decreased appetite. Chills. No change in bowel pattern. Wheezing. Admitted with acute COPD exacerbation, acute tracheal bronchitis. Started on DuoNeb, Solu-Medrol, doxycycline. 05/26/2022: Remain short of breath. Wheezing. Some cough. Eating fair. In bed. 05/27. Patient seen and examined. Stated he still feels short of breath. Denies any chest pain. Denies any lightheadedness or dizziness. Vital signs stable REVIEW OF SYSTEMS: CONSTITUTIONAL: No fever, no malaise,. CARDIOVASCULAR: No chest pain, no palpitations, no syncope. PULMONARY: Still complaining of shortness of breath. GASTROINTESTINAL: No diarrhea, no nausea, no vomiting, no abdominal pain. NEUROLOGICAL: No headaches, no weakness, PHYSICAL EXAMINATION: GENERAL: The patient is alert and oriented x3, not in any acute distress. Well developed, well nourished. HEENT: Pupils are round and equally reacting to light. EOMI. No scleral icterus. No conjunctival pallor. Normocephalic, atraumatic. No pharyngeal erythema. No thyromegaly. CARDIOVASCULAR: S1 and S2 present. No murmurs, rubs, or gallops. PULMONARY: Chest is clear to auscultation, no wheezing or crackles. ABDOMEN: Soft, nontender, nondistended, normoactive bowel sounds. No palpable organomegaly. MUSCULOSKELETAL: No joint swelling or deformity. EXTREMITIES: No cyanosis, clubbing, or pedal edema. Left BKA NEUROLOGICAL: Gross neurological examination did not reveal any focal deficits. SKIN: No rashes. Assessment and plan -Acute COPD exacerbation in a current smoker: Continue breathing treatment. Continue doxycycline. Continue steroids -Acute tracheobronchitis. Doxycycline completed 7 days of treatment -Acute hyponatremia likely from increased water intake Fluid restrict -Chronic nicotine dependence cigarette smoker Nicotine patch 14 -BPH Flomax 0.8 mg by mouth daily at bedtime, -Bladder outflow structured requiring chronic Evans catheter, being followed by /urologist -Primary osteoarthritis -Left below-knee amputation, with prosthesis Able to ambulate -Peripheral arterial disease on Plavix -Chronic hypoxic respiratory failure requiring oxygen at home from underlying COPD 2 L of oxygen at home -moderate cognitive impairment possibly from late onset Alzheimer's dementia -Right bundle-branch block DVT prophylaxis: Objective - Vital Signs Vital signs: Vital Signs Temp 98.0 F 05/27/22 08:16 Pulse 72 05/27/22 11:10 Resp 20 05/27/22 08:20 BP 144/66 05/27/22 08:16 Pulse Ox 91 L 05/27/22 08:16 FiO2 Intake & Output 05/26/22 05/27/22 05/27/22 18:59 06:59 18:59 Intake Total 717 180 Output Total 600 1300 1000 Balance 117 -1300 -820 Intake: Oral 717 180 Output: Urine 600 1300 1000 Emesis 0 Other: Voiding Method Indwelling Catheter Indwelling Catheter # Bowel Movements 1 - Labs CBC & Chem 7: 05/24/22 23:05 05/27/22 07:11 Labs: Abnormal Lab Results - Last 24 Hours (Table) 05/27/22 Range/Units 07:11 Sodium 129 L (137-145) mmol/L Chloride 94 L (98-107) mmol/L BUN 26 H (9-20) mg/dL Glucose 140 H (74-99) mg/dL Microbiology - Last 24 Hours (Table) 05/25/22 23:49 Gram Stain - Preliminary Sputum Sputum Culture - Preliminary
[2022-05-27] MEDS: lisinopriL 10 MG TAB PO SCH (21:06)
[2022-05-27] MEDS: DONEPEZIL 5 MG TAB PO SCH (21:07)
[2022-05-27] MEDS: CLOPIDOGREL 75 MG TAB PO SCH (21:07)
[2022-05-27] MEDS: TAMSULOSIN 0.4 MG CAP.ER.24H PO SCH (21:07)
[2022-05-28] MEDS: IPRATROPIUM-ALBUTEROL 3 ML NEB INHALATION SCH ×6 (03:17→23:17)
[2022-05-28] MEDS: FORMOTEROL FUMARATE 20 MCG/2 ML NEBU INHALATION SCH ×2 (06:58→19:13)
[2022-05-28] MEDS: BUDESONIDE 1 MG/2 ML NEBU INHALATION SCH ×2 (06:59→19:13)
[2022-05-28] MEDS: NICOTINE 14MG/24HR PATCH TRANSDERM SCH (08:40)
[2022-05-28] MEDS: DOXYCYCLINE 100 MG CAP PO SCH ×2 (08:40→20:53)
[2022-05-28] MEDS: METOPROLOL TARTRATE 50 MG TAB PO SCH ×2 (08:40→20:53)
[2022-05-28] MEDS: predniSONE 20 MG TAB PO SCH (08:40)
[2022-05-28] MEDS: GABAPENTIN 400 MG CAP PO SCH ×4 (08:40→20:53)
[2022-05-28] MEDS: ENOXAPARIN 40 MG/0.4 ML SYRINGE SQ SCH (08:41)
[2022-05-28 09:00] LABS: Basophils # (A) 0 X 10*3/uL (0.00-0.10); Basophils % (A) 0 %; Eosinophils # (A) 0 X 10*3/uL (0.04-0.35); Eosinophils % (A) 0 %; HCT 33.3 % (39.6-50.0); HGB 10.8 g/dL (13.0-17.0); Immature Grans, Automated 0.4 %; Lymphocytes % (A) 16.6 %; MCH 29.9 pg (27.0-32.0); MCHC 32.4 g/dL (32.0-37.0); MCV 92.2 fL (80.0-97.0); Mean Platelet Volume 10.5 fL (9.5-12.2); Monocytes # (A) 0.99 X 10*3/uL (0.20-1.00); Monocytes % (A) 9.7 %; NRBC Per 100 WBC 0 /100 WBCS (0.0-0.0); Neutrophils % (A) 73.3 %; Platelet Count 171 X 10*3/uL (140-440); RBC 3.61 X 10*6/uL (4.40-5.60); RDW 13.6 % (11.5-14.5); WBC 10.23 X 10*3/uL (4.50-10.00)
[2022-05-28 09:14] LABS: ALT 42 U/L (10-49); AST 22 U/L (14-35); African American GFR (CKD) 69.8 (60.0-200.0); Albumin 3.5 g/dL (3.8-4.9); Albumin/Globulin Ratio 1.95 (1.60-3.17); Alkaline Phosphatase 46 U/L (41-126); BUN/Creat Ratio 18.26 Ratio (12.00-20.00); Calcium 8.7 mg/dL (8.7-10.3); Carbon Dioxide 28.8 mmol/L (20.0-27.5); Chloride 96 mmol/L (96-109); Globulin 1.8 g/dL (1.6-3.3); Glucose 99 mg/dL (70-110); Non-African American GFR(CKD) 60.2 (60.0-200.0); Potassium 4.2 mmol/L (3.5-5.5); Sodium 133 mmol/L (135-145); Total Bilirubin <0.15 mg/dL (0.30-1.20); Total Protein 5.3 g/dL (6.2-8.2)
--- NOTE | 2022-05-28 11:16 | P.PN ---
Subjective Progress Note Date: 05/28/22 This is a [address] Boss. Lives with his / caregiver. Chronic stable medical conditions include BPH, chronic Evans catheter, osteoarthritis, left below knee amputation, peripheral artery disease. dementia. Normally able get around the house. Home oxygen 2 L Patient continues smoke half a pack a day. Increase in the short of breath for over a day. Cough. Sputum is production. Decreased appetite. Chills. No change in bowel pattern. Wheezing. Admitted with acute COPD exacerbation, acute tracheal bronchitis. Started on DuoNeb, Solu-Medrol, doxycycline. 05/26/2022: Remain short of breath. Wheezing. Some cough. Eating fair. In bed. 05/27. Patient seen and examined. Stated he still feels short of breath. Denies any chest pain. Denies any lightheadedness or dizziness. Vital signs stable 05/28. Patient seen and examined. Still has wheezing this morning. Complaining of shortness of breath. States he is not ready to be discharged today REVIEW OF SYSTEMS: CONSTITUTIONAL: No fever, no malaise,. CARDIOVASCULAR: No chest pain, no palpitations, no syncope. PULMONARY: As mentioned above GASTROINTESTINAL: No diarrhea, no nausea, no vomiting, no abdominal pain. NEUROLOGICAL: No headaches, no weakness, PHYSICAL EXAMINATION: GENERAL: The patient is alert and oriented x3, not in any acute distress. Well developed, well nourished. HEENT: Pupils are round and equally reacting to light. EOMI. No scleral icterus. No conjunctival pallor. Normocephalic, atraumatic. No pharyngeal erythema. No thyromegaly. CARDIOVASCULAR: S1 and S2 present. No murmurs, rubs, or gallops. PULMONARY: Good air entry bilaterally, expiratory wheeze audible ABDOMEN: Soft, nontender, nondistended, normoactive bowel sounds. No palpable organomegaly. MUSCULOSKELETAL: No joint swelling or deformity. EXTREMITIES: No cyanosis, clubbing, or pedal edema. Left BKA NEUROLOGICAL: Gross neurological examination did not reveal any focal deficits. SKIN: No rashes. Assessment and plan -Acute COPD exacerbation in a current smoker: Continue breathing treatment. Continue doxycycline. Continue steroids -Acute tracheobronchitis. Doxycycline complete 7 days of treatment -Acute hyponatremia likely from increased water intake Fluid restrict -Chronic nicotine dependence cigarette smoker Nicotine patch 14 -BPH Flomax 0.8 mg by mouth daily at bedtime, -Bladder outflow structured requiring chronic Evans catheter, being followed by /urologist -Primary osteoarthritis -Left below-knee amputation, with prosthesis Able to ambulate -Peripheral arterial disease on Plavix -Chronic hypoxic respiratory failure requiring oxygen at home from underlying COPD 2 L of oxygen at home -moderate cognitive impairment possibly from late onset Alzheimer's dementia -Right bundle-branch block Objective - Vital Signs Vital signs: Vital Signs Temp 98 F 05/28/22 07:00 Pulse 70 05/28/22 11:06 Resp 18 05/28/22 08:48 BP 135/65 05/28/22 07:00 Pulse Ox 93 L 05/28/22 02:06 FiO2 Intake & Output 05/27/22 05/28/22 05/28/22 18:59 06:59 18:59 Intake Total 540 180 Output Total 1300 Balance -760 180 Intake: Oral 540 180 Output: Urine 1300 Other: Voiding Method Indwelling Catheter Indwelling Catheter Indwelling Catheter # Voids 2 0 # Bowel Movements 1 - Labs CBC & Chem 7: 05/28/22 06:04 05/28/22 06:04 Labs: Abnormal Lab Results - Last 24 Hours (Table) 05/28/22 05/28/22 Range/Units 06:04 06:04 WBC 10.23 H (4.50-10.00) X 10*3/uL RBC 3.61 L (4.40-5.60) X 10*6/uL Hgb 10.8 L (13.0-17.0) g/dL Hct 33.3 L (39.6-50.0) % Eosinophils # 0 L (0.04-0.35) X 10*3/uL Sodium 133 L (135-145) mmol/L Carbon Dioxide 28.8 H (20.0-27.5) mmol/L Anion Gap 7.60 L (10.00-18.00) mmol/L Total Bilirubin <0.15 L (0.30-1.20) mg/dL Total Protein 5.3 L (6.2-8.2) g/dL Albumin 3.5 L (3.8-4.9) g/dL Microbiology - Last 24 Hours (Table) 05/25/22 23:49 Gram Stain - Final Sputum Sputum Culture - Final
--- NOTE | 2022-05-28 13:34 | P.PN ---
Subjective Progress Note Date: 05/28/22 Principal diagnosis: Acute exacerbation of COPD, acute on chronic hypoxic respiratory failure I'm seeing this patient today, 05/26/2022, in consultation for acute COPD exacerbation. Patient has been short of breath for approximately 1 day with associated productive cough and green sputum. Patient denies fevers or chills, chest pain, hemoptysis. patient apparently was feeling short of breath, and called EMS. Patient did report improvement in symptoms after DuoNeb inhalation. He's currently sitting up in bed, on 3 L nasal cannula, in no acute distress. Patient has a medical history of COPD, 4 L home oxygen use, current smoker, CVA, peripheral arterial disease, left below the knee", previous stenting to the SFA. He was also recently admitted November 2021 for similar symptoms. Chest x-ray from today showed no active cardiopulmonary process. Sputum cultures were sent and are pending. Afebrile. Patient's CBC does not show any leukocytosis with a WBC count of 6, hemoglobin 11.5, hematocrit 35, platelets 162,000. Patient's BMP was also unremarkable with a sodium 131, potassium 5, chloride 96, serum CO2 33, BUN 16, creatinine 0.95, glucose 110. Patient was negative for influenza, RSV, coronavirus. He is maintained on DuoNeb inhalation, budesonide inhalation, formoterol inhalation, and IV Solu-Medrol. Many attempts at smoking cessation have been attempted, and patient has a nicotine patch on. Vital signs remain stable. The patient is seen today 05/27/2022 in follow-up on the regular medical floor. He is currently sitting up in bed. Awake and alert in no acute distress. Breathing easier today compared to yesterday.He is maintaining good O2 satur ations in the 90s on 3 L/m per nasal cannula. He is afebrile. Hemodynamically stable. Sputum culture pending. sodium 129. Potassium 4.6. Chloride 94. BUN 26. Creatinine 0.95. Glucose 140. He is continued on DuoNeb inhalations, Pulmicort and Perforomist ablations, IV Cymetra. Antibiotics in the form of doxycycline. Reevaluated today on 05/28/2022, I cleared the patient to be discharged home yesterday, however he remains inpatient, I still believe the patient could be discharged home, he does have minimal wheezing on forced expiratory maneuver only. Patient will have these findings probably for the rest of his life. Nothing that the patient is taking presently as inpatient that could not be given at home, hence I'm clearing the patient again for discharge and follow-up on outpatient basis. His labs are basically unremarkable. Patient is not in any distress, he has intermittent cough which is chronic and will not change Objective - Vital Signs Vital signs: Vital Signs Temp 98 F 05/28/22 07:00 Pulse 70 05/28/22 11:06 Resp 18 05/28/22 08:48 BP 135/65 05/28/22 07:00 Pulse Ox 93 L 05/28/22 02:06 FiO2 Intake & Output 05/27/22 05/28/22 05/28/22 18:59 06:59 18:59 Intake Total 540 180 Output Total 1300 2000 Balance -760 -1820 Intake: Oral 540 180 Output: Urine 1300 2000 Other: Voiding Method Indwelling Catheter Indwelling Catheter Indwelling Catheter # Voids 2 0 # Bowel Movements 1 - Exam Physical Exam: Revealed a 77-year-old white male in no distress on few liters nasal cannula patient has oxygen at home Head: Atraumatic normocephalic. HEENT:[Neck is supple.] [No neck masses.] [No thyromegaly.] [No JVD.] Chest: [Diminished breath sounds bilaterally, some wheezing noted on forced expiratory maneuver Cardiac Exam: [Normal S1 and S2, no S3 gallop, no murmur.] Abdomen: [Soft, nontender, no megaly, no rebound, no guarding, normal bowel sounds.] Extremities: [No clubbing, no edema, no cyanosis.] Neurological Exam: [No focal neurologic deficit.] Alert oriented 3 Psychiatric: Normal mood affect and normal mental status examination Skin: No rashes - Labs CBC & Chem 7: 05/28/22 06:04 05/28/22 06:04 Labs: Abnormal Lab Results - Last 24 Hours (Table) 05/28/22 05/28/22 Range/Units 06:04 06:04 WBC 10.23 H (4.50-10.00) X 10*3/uL RBC 3.61 L (4.40-5.60) X 10*6/uL Hgb 10.8 L (13.0-17.0) g/dL Hct 33.3 L (39.6-50.0) % Eosinophils # 0 L (0.04-0.35) X 10*3/uL Sodium 133 L (135-145) mmol/L Carbon Dioxide 28.8 H (20.0-27.5) mmol/L Anion Gap 7.60 L (10.00-18.00) mmol/L Total Bilirubin <0.15 L (0.30-1.20) mg/dL Total Protein 5.3 L (6.2-8.2) g/dL Albumin 3.5 L (3.8-4.9) g/dL Microbiology - Last 24 Hours (Table) 05/25/22 23:49 Gram Stain - Final Sputum Sputum Culture - Final Assessment and Plan Assessment: Impression: Acute on chronic hypoxic respiratory failure Acute COPD exacerbation Acute tracheobronchitis Degenerative joint disease Chronic Evans catheter for urinary retention Peripheral vessel occlusive disease History of left below-knee amputation Recommendation: Again IM clearing the patient for discharge, nothing given in the hospital could not be given at home, I explained to the patient that he would actually receive more bronchodilators at home that he is receiving while inpatient That recommended discharge medications are: Prednisone 30 mg tapered over the next 15 days or until the patient seen in our office for follow-up. Doxycycline 100 mg by mouth twice a day Laith ng 4 times a day when necessary Klaus Zimmerman 100/62.5/25 one puff daily Admitting physician to be notified about clearing for discharge. Patient to stop smoking and he was counseled regarding smoking cessation Should be seen in the office within one week post discharge Time with Patient: Less than 30
[2022-05-28] MEDS: lisinopriL 10 MG TAB PO SCH (20:53)
[2022-05-28] MEDS: TAMSULOSIN 0.4 MG CAP.ER.24H PO SCH (20:53)
[2022-05-28] MEDS: CLOPIDOGREL 75 MG TAB PO SCH (20:53)
[2022-05-28] MEDS: DONEPEZIL 5 MG TAB PO SCH (20:53)
[2022-05-29] MEDS: IPRATROPIUM-ALBUTEROL 3 ML NEB INHALATION SCH ×2 (03:08→07:44)
[2022-05-29] MEDS: BUDESONIDE 1 MG/2 ML NEBU INHALATION SCH (07:44)
[2022-05-29] MEDS: FORMOTEROL FUMARATE 20 MCG/2 ML NEBU INHALATION SCH (07:44)
[2022-05-29] MEDS: ENOXAPARIN 40 MG/0.4 ML SYRINGE SQ SCH (09:01)
[2022-05-29] MEDS: NICOTINE 14MG/24HR PATCH TRANSDERM SCH (09:01)
[2022-05-29] MEDS: GABAPENTIN 400 MG CAP PO SCH (09:01)
[2022-05-29] MEDS: DOXYCYCLINE 100 MG CAP PO SCH (09:01)
[2022-05-29] MEDS: predniSONE 20 MG TAB PO SCH (09:01)
[2022-05-29] MEDS: METOPROLOL TARTRATE 50 MG TAB PO SCH (09:01)
[2022-05-29 09:37] VITALS: BP 148/66; PULSE 55; RESP 17; TEMP 98
--- NOTE | 2022-05-29 11:16 | P.DS ---
Providers Date of admission: 05/25/22 12:35 Expected date of discharge: 05/29/22 Attending physician: Angelo Rausch Consults: 05/25/22 19:09 Consult Physician Routine Consulting Provider: Adam Espinoza Consult Reason/Comments: COPD Do you want consulting provider notified?: Yes Primary care physician: Bob Boss [facility] Course: Discharge diagnoses; -Acute COPD exacerbation in a current smoker: Being discharged on prednisone and doxycycline -Acute tracheobronchitis. Doxycycline complete 7 days of treatment -Acute hyponatremia likely from increased water intake Fluid restrict -Chronic nicotine dependence cigarette smoker Nicotine patch 14 -BPH Flomax 0.8 mg by mouth daily at bedtime, -Bladder outflow structured requiring chronic Evans catheter, being followed by /urologist -Primary osteoarthritis -Left below-knee amputation, with prosthesis Able to ambulate -Peripheral arterial disease on Plavix -Chronic hypoxic respiratory failure requiring oxygen at home from underlying COPD 2 L of oxygen at home -moderate cognitive impairment possibly from late onset Alzheimer's dementia -Right bundle-branch block Hospital course; This is a [address] Boss. Lives with his / caregiver. Chronic stable medical conditions include BPH, chronic Evans catheter, osteoarthritis, left below knee amputation, peripheral artery disease. dementia. Normally able get around the house. Home oxygen 2 L Patient continues smoke half a pack a day. Increase in the short of breath for over a day. Cough. Sputum is production. Decreased appetite. Chills. No change in bowel pattern. Wheezing. Admitted with acute COPD exacerbation, acute tracheal bronchitis. Started on DuoNeb, Solu-Medrol, doxycycline. 05/26/2022: Remain short of breath. Wheezing. Some cough. Eating fair. In bed. 05/27. Patient seen and examined. Stated he still feels short of breath. Denies any chest pain. Denies any lightheadedness or dizziness. Vital signs stable 05/28. Patient seen and examined. Still has wheezing this morning. Complaining of shortness of breath. States he is not ready to be discharged today 05/29. His oxygen requirements are at baseline. Being discharged on doxycycline, outpatient follow with PCP PHYSICAL EXAMINATION: GENERAL: The patient is alert and oriented x3, not in any acute distress. Well developed, well nourished. HEENT: Pupils are round and equally reacting to light. EOMI. No scleral icterus. No conjunctival pallor. Normocephalic, atraumatic. No pharyngeal erythema. No thyromegaly. CARDIOVASCULAR: S1 and S2 present. No murmurs, rubs, or gallops. PULMONARY: ABDOMEN: Soft, nontender, nondistended, normoactive bowel sounds. No palpable organomegaly. MUSCULOSKELETAL: No joint swelling or deformity. EXTREMITIES: No cyanosis, clubbing, or pedal edema. NEUROLOGICAL: Gross neurological examination did not reveal any focal deficits. SKIN: No rashes. Patient Condition at Discharge: Fair Plan - Discharge Summary New Discharge Prescriptions: New Doxycycline [Vibramycin] 100 mg PO BID #6 cap predniSONE [Deltasone] 40 mg PO DAILY 2 Days #2 tab Continue Tamsulosin [Flomax] 0.8 mg PO HS Benazepril [Lotensin] 10 mg PO HS Donepezil [Aricept] 5 mg PO HS Clopidogrel Bisulfate [Plavix] 75 mg PO HS HYDROcodone/APAP 10-325MG [[place] 10-325] 1 tab PO Q4H PRN PRN Reason: Pain Ipratropium/Albuter 20-100Mcg [Combivent Respimat 20-100Mcg Inhaler] 1 puff INHALATION RT-QID Metoprolol Tartrate [Lopressor] 50 mg PO BID #60 tab Gabapentin 800 mg PO QID Ipratropium-Albuterol Nebulize [Duoneb 0.5 mg-3 mg/3 ml Soln] 3 ml INHALATION RT-QID Discontinued Budesonide [Pulmicort] 0.5 mg INHALATION RT-BID Discharge Medication List Tamsulosin [Flomax] 0.8 mg PO HS 04/02/15 [History] Benazepril [Lotensin] 10 mg PO HS 05/14/19 [History] Donepezil [Aricept] 5 mg PO HS 05/14/19 [History] Clopidogrel Bisulfate [Plavix] 75 mg PO HS 07/17/21 [History] HYDROcodone/APAP 10-325MG [[place] 10-325] 1 tab PO Q4H PRN 07/17/21 [History] Metoprolol Tartrate [Lopressor] 50 mg PO BID #60 tab 07/21/21 [Rx] Gabapentin 800 mg PO QID 05/25/22 [History] Ipratropium-Albuterol Nebulize [Duoneb 0.5 mg-3 mg/3 ml Soln] 3 ml INHALATION RT-QID 05/25/22 [History] Ipratropium/Albuter 20-100Mcg [Combivent Respimat 20-100Mcg Inhaler] 1 puff INHALATION RT-QID 05/25/22 [History] Doxycycline [Vibramycin] 100 mg PO BID #6 cap 05/29/22 [Rx] predniSONE [Deltasone] 40 mg PO DAILY 2 Days #2 tab 05/29/22 [Rx] Follow up Appointment(s)/Referral(s): Adam Espinoza MD [STAFF PHYSICIAN] - 06/19/22 1:00 pm Bob Boss MD [Primary Care Provider] - 1-2 days (PLEASE CALL AND SCHEDULE APPOINTMENT.) Patient Instructions/Handouts: Doxycycline (By mouth), Prednisone (By mouth), How to Stop Smoking (DC), Acute Bronchitis (GEN), COPD (Chronic Obstructive Pulmonary Disease) (DC) Discharge Disposition: HOME SELF-CARE
== END 2022-05-29 10:40 | disposition home or self-care (01) | DRG 190 ==
LOC: EC 22:01 → 6NMEDSUR 05-25 00:47 → OBSVTOIN 05-25 12:35
PROVIDERS: ADMIT Hospitalist; ATTEND Hospitalist
DX: J44.1 Chronic obstructive pulmonary disease with (acute) exacerbation (principal); J96.21 Acute and chronic respiratory failure with hypoxia; E87.1 Hypo-osmolality and hyponatremia; Z20.822 Contact with and (suspected) exposure to COVID-19; E11.51 Type 2 diabetes mellitus with diabetic peripheral angiopathy without gangrene; Z89.512 Acquired absence of left leg below knee; E66.9 Obesity, unspecified; Z68.34 Body mass index [BMI] 34.0-34.9, adult; F17.210 Nicotine dependence, cigarettes, uncomplicated; J20.9 Acute bronchitis, unspecified; G30.1 Alzheimer's disease with late onset; F02.A0 Dementia in other diseases classified elsewhere, mild, without behavioral disturbance, psychotic disturbance, mood disturbance, and anxiety; J44.0 Chronic obstructive pulmonary disease with (acute) lower respiratory infection; I45.10 Unspecified right bundle-branch block; M19.91 Primary osteoarthritis, unspecified site; N40.1 Benign prostatic hyperplasia with lower urinary tract symptoms; R33.8 Other retention of urine; Z79.899 Other long term (current) drug therapy; Z82.5 Family history of asthma and other chronic lower respiratory diseases; Z86.73 Personal history of transient ischemic attack (TIA), and cerebral infarction without residual deficits; Z99.81 Dependence on supplemental oxygen
CPT/HCPCS: 36415; 71046; 80048; 80053; 83605; 83735; 83880; 84484; 85025; 85610; 85730; 87070; 87205; 87636; 93005; 94640; 94760; 96374; 99285